=== PATIENT | female | born 1970 | race Caucasian/White ===

== ENCOUNTER 2020-02-19 09:24 | Outpatient (REF) | payer OTHER, SELFPAY ==
--- NOTE | 2020-02-19 09:49 | MR_ITS ---
EXAMINATION: MR ABDOMEN WITHOUT AND WITH CONTRAST MR PELVIS WITHOUT AND WITH CONTRAST CLINICAL INFORMATION: Crohn's disease of colon without complication. No prior surgery. COMPARISON: None. TECHNIQUE: MR abdomen and MR pelvis are performed without and with use of 8 mL intravenous Gadavist gadolinium contrast. Imaging is performed in 3 planes. Patient had 1.5 L of oral Breeza prior to imaging. FINDINGS: LUNG BASES: The visualized lung bases are unremarkable. LIVER, GALLBLADDER, AND BILIARY TREE: The liver is normal in size and smooth in contour and normal in signal. There is no significant signal loss on out of phase imaging. No enhancing parenchymal lesion. No intrahepatic ductal dilatation. The gallbladder is unremarkable with no evidence of gallbladder wall thickening, or obvious pericholecystic inflammatory changes. PANCREAS: The pancreas is normal in size and contour and signal. There is no pancreatic ductal distention. No divisum. No peripancreatic inflammatory changes. SPLEEN: Normal. ADRENAL GLANDS: Normal. KIDNEYS AND URETERS: The kidneys are normal in size, shape, and enhance symmetrically. No hydronephrosis. No perinephric stranding. Incidental 1 cm cyst lateral right kidney between upper and midpole. GASTROINTESTINAL TRACT: No bowel obstruction or focal inflammatory changes in the bowel or mesentery. The terminal ileum unremarkable. The appendix is normal. There is no focal bowel wall thickening, T2 signal, or abnormal enhancement. No ascites or fluid collection. ABDOMINAL WALL: Small fat-containing supraumbilical hernia measuring 1.8 x 2.9 cm. LYMPH NODES: No lymphadenopathy. VASCULAR: Unremarkable. PELVIS: Uterus normal in size and smooth in contour, slightly tilted towards the left. There is incidental dominant follicle left ovary under 2 cm. No pelvic ascites. OSSEOUS STRUCTURES: Unremarkable. No sacroiliitis. IMPRESSION: 1. No focal inflammatory changes in bowel or mesentery. 2. Gallbladder and bile ducts normal. 3. Incidental right renal cyst 1 cm. Incidental dominant follicle left ovary under 2 cm. 4. Small fat-containing supraumbilical hernia 1.8 x 2.9 cm.
== END 2020-02-19 09:25 | disposition home or self-care (01) ==
LOC: HO.MRI 09:24
PROVIDERS: Visit Provider Internal Medicine Gastroenterology
DX: K50.10 Crohn's disease of large intestine without complications (principal)
CPT/HCPCS: 72197; 74183

== ENCOUNTER 2020-03-14 14:46 | Outpatient (REF) | payer OTHER, SELFPAY ==
[2020-03-14 15:37] LABS: MANUAL DIFF FLAG NO
[2020-03-14 15:43] LABS: Basophils Absolute Auto 0.1 X10*3/uL (0.0-0.2); Basophils Percent Auto 1.3 % (0-2); Eosinophils Absolute Auto 0.4 X10*3/uL (0.0-0.4); Eosinophils Percent Auto 5.1 % (0-4); Hematocrit 41.2 % (37-47); Hemoglobin 14.1 g/dl (12.0-16.0); Imm Gran Abs Auto 0.02 X10*3/uL (0.00-0.03); Imm Gran Pct Auto 0.3 % (0.0-0.4); Lymphocytes Absolute Auto 2.6 X10*3/uL (1.2-4.9); Lymphocytes Percent Auto 32.7 % (20-40); Mean Corpuscular HGB Conc 34.2 g/dl (31.0-35.0); Mean Corpuscular Volume 87.7 fL (80-98); Mean Platelet Volume 10.7 fL (9.4-12.3); Monocytes Absolute Auto 0.4 X10*3/uL (0.1-1.2); Monocytes Percent Auto 4.9 % (2-11); Neutrophils Absolute Auto 4.4 X10*3/uL (2.0-8.3); Neutrophils Percent Auto 55.7 % (45-73); Platelet Count 278 X10*3/uL (160-400); Red Cell Distribution Width 12.3 % (11.0-16.0); White Blood Count 7.8 X10*3/uL (4.8-10.8)
[2020-03-14 16:07] LABS: Alanine Aminotransferase 16 U/L (0-31); Albumin Level 4.1 g/dL (3.5-5.0); Alkaline Phosphatase 51 U/L (39-117); Anion Gap 12 (12-20); Aspartate Amino Transferase 16 U/L (5-31); Bilirubin Total 0.4 mg/dL (0.0-1.0); Blood Urea Nitrogen 12 mg/dL (9-16); C Reactive Protein 0.15 mg/dL (< or = 0.50); Carbon Dioxide 28 mmol/L (22-29); Chloride 106 mmol/L (96-108); Estimated Glomerular Filt Rate > 60; Glucose Random 88 mg/dL (60-115); Sodium 142 mmol/L (135-145); Total Protein 6.5 g/dL (6.5-8.0)
[2020-03-14 16:40] LABS: Folate 7.9 ng/mL (> or = 4.0); Vitamin B12 407 pg/mL (200-900)
[2020-03-14 16:50] LABS: Erythrocyte Sedimentation Rate 7 MM/HR (0-20)
[2020-03-15 10:37] LABS: CDIFF Ag Negative (Negative); CDiff Toxin Negative (Negative)
[2020-03-15 10:38] LABS: CDIFF Internal ctrl Dots and bkg OK (V)
[2020-03-15 13:32] LABS: Immunoglobulin G Subclass 1 319 mg/dL (382-929); Immunoglobulin G Subclass 2 379 mg/dL (241-700); Immunoglobulin G Subclass 3 73 mg/dL (22-178); Immunoglobulin G Subclass 4 3.4 mg/dL (4-86); Immunoglobulin G Total 799 mg/dL (600-1640)
[2020-03-17 08:38] LABS: HBS Num1 0.68 mIU/mL (0-7.99); HBc Num1 0.05 S/CO (0.00-0.79); HBsAGNum1 0.26 S/CO (0.00-0.99); Hepatitis B Core Antibody Nonreactive (Nonreactive); Hepatitis B Surface Antigen Negative (Negative); ~HepC Num1 0.11 S/CO (0.00-0.79); ~Hepatitis B Surface Antibody NONREACTIVE (Nonreactive); ~Hepatitis C Antibody Nonreactive (Nonreactive)
[2020-03-17 19:09] LABS: EBV-VCA IgG Ab >750.00 U/mL; EBV-VCA IgM Ab <36.00 U/mL
[2020-03-17 19:11] LABS: TS Negative Control Passed; TS Panel A 0; TS Panel B 0; TS Positive Control Passed; TSpotTB Negative (SeeBelow)
[2020-03-19 09:53] LABS: Hepatitis A Antibody IgM 0.12 Index (0-0.79); ~Hepatitis A Antibody IgM Nonreactive (Nonreactive)
[2020-03-19 21:46] LABS: Vitamin C 0.7 mg/dL (0.3-2.7)
[2020-03-21 13:27] LABS: Calprotectin, Fecal 23 mcg/g
== END 2020-03-14 14:47 | disposition home or self-care (01) ==
LOC: HO.LAB 14:46
PROVIDERS: PCP Internal Medicine; Visit Provider Internal Medicine Gastroenterology
DX: K50.10 Crohn's disease of large intestine without complications (principal)
CPT/HCPCS: 36415; 80053; 82180; 82607; 82746; 82784; 83993; 85025; 85652; 86140; 86481; 86664; 86665; 86704; 86706; 86709; 86787; 86803; 87324; 87340; 87449

== ENCOUNTER → 2020-04-01 11:05 | Outpatient (BNVA) | payer OTHER, SELFPAY | PROVIDERS: PCP Internal Medicine; Visit Provider Surgery | DX: K42.9 Umbilical hernia without obstruction or gangrene (principal) | CPT/HCPCS: 99202 ==

== ENCOUNTER 2020-04-07 06:55 | Day surgery (SDC) | payer OTHER, SELFPAY ==
--- NOTE | 2020-04-04 11:04 | HO.ANESPROP2 ---
HPI - Anesthesia Eval Consult details Narrative: 49yo F for Hernia Repair Ventral with mesh PMFSH Past Medical History Medical History Colitis, ulcerative Crohn's colitis Osteoarthritis Surgical History Surgical History (Updated 04/07/20 @ 19:05 by Sudha Amaya MD) History of tubal ligation Hx of ventral hernia repair Social History Social History Alcohol intake: never Smoking Status: Never smoker Meds Allergies Allergy/AdvReac Type Severity Reaction Status Date / Time acetaminophen [Percocet] AdvReac Unknown nausea and Verified 10/19/19 00:00 vomiting oxycodone [Percocet] AdvReac Unknown nausea and Verified 10/19/19 00:00 vomiting Home Medications Medication Instructions Recorded Confirmed Type No Known Home Meds 04/01/20 04/01/20 History Exam Exam Date and Time: April 04, 2020 1104 Pertinent Lab Results Pertinent Lab Results: Laboratory Tests 03/14/20 03/14/20 14:36 14:36 WBC 7.8 Hgb 14.1 Hct 41.2 Plt Count 278 Sodium 142 Potassium 4.0 Chloride 106 Carbon Dioxide 28 BUN 12 Creatinine 0.82 Assessment and Plan Assessment Anesthesia Assessment: Chart Reviewed
[2020-04-04 13:36] VITALS: BMI 35.6
[2020-04-07] VITALS (7 sets, daily range): BP systolic 108–134; BP diastolic 65–83; PULSE 63–76; RESP 16–20; TEMP 36.3–36.7; O2SAT 94–97
[2020-04-07] MEDS: Lactated Ringers 1,000 ML 100 ML IVCONT (07:34)
[2020-04-07] MEDS: ceFAZolin Sodium/Dextrose,Iso 2 GM/50 ML PIGGYBACK IV (07:35)
--- NOTE | 2020-04-07 07:38 | PC.NURSE ---
lungs clear throughtou
--- NOTE | 2020-04-07 08:51 | HO.ANESPROP2 ---
[facility] Past Medical History Medical History Colitis, ulcerative Crohn's colitis Osteoarthritis Surgical History Surgical History History of tubal ligation Social History Social History Alcohol intake: never Smoking Status: Never smoker Use of substances other than those prescribed or required for medical reasons: No Advance Directives: No Advance Directives Information Provided: Yes Advance Directives on File: No Meds Allergies Allergy/AdvReac Type Severity Reaction Status Date / Time acetaminophen [Percocet] AdvReac Unknown nausea and Verified 10/19/19 00:00 vomiting oxycodone [Percocet] AdvReac Unknown nausea and Verified 10/19/19 00:00 vomiting Home Medications Medication Instructions Recorded Confirmed Type No Known Home Meds 04/01/20 04/01/20 History Exam Exam Date and Time: April 07, 2020 0851 Height,Weight and Vital Signs: Height 5 ft 1 in Weight 85.729 kg Last Vital Signs Temp 98.1 F 04/07/20 07:28 Pulse 66 04/07/20 07:28 Resp 16 04/07/20 07:28 BP 134/83 04/07/20 07:28 Pulse Ox 97 04/07/20 07:28 Airway Mallampati Class: II TM Dist: >3cm Neck ROM: Full Loose/Missing/Broken Teeth: No Heart: RRR Lungs: CTA Assessment and Plan Assessment Anesthesia Assessment: Anesthesia Plan Discussed and Chart Reviewed Final Anesthetic Review NPO: Yes ASA Class: II Final Preanesthetic Review: Meds/Allgs Chart Reviewed, Consent Obtained/Reviewed and Anes Risks/Benef Reviewed Patient Risk: Low Procedure Risk: Low Anesthetic Plan Anesthetic Plan: GA Disposition: Standard PACU
--- NOTE | 2020-04-07 09:00 | MHC.SHP ---
Pre-Procedural Eval Section A The patient is an INPATIENT: Yes Changes since office visit: No Cold of Flu in the past 2 weeks, No New Medical Problems and No Changes in Medication The History & Physical has been completed within 30 days and I have reviewed it.: Yes Section B Chief Complaint: umbilical hernia without obstruction or gangrene Allergies: Allergies Allergy/AdvReac Type Severity Reaction Status Date / Time acetaminophen [Percocet] AdvReac Unknown nausea and Verified 10/19/19 00:00 vomiting oxycodone [Percocet] AdvReac Unknown nausea and Verified 10/19/19 00:00 vomiting Plan Diagnosis/Plan: Unchanged Patient has been examined and remains a candidate for the planned procedure
--- NOTE | 2020-04-07 09:53 | P.BOP_ITS ---
Brief Operative Note Date of Service: 04/07/20 Pre-op diagnosis: Ventral hernia Post-op diagnosis: same Procedure: Repair of ventral hernia with mesh Implants: Ventralex 4.3 cm round mesh Surgeon: Mario Ye MD Anesthesia: GLMA Sample Body Builder: Rach Garner Estimated blood loss (mL): 2 Pathology: other (omentum) Condition: stable Disposition: PACU
--- NOTE | 2020-04-07 10:22 | W.PM.OPN ---
Operative Note Operative Note Date of Service: 04/07/20 Narrative: Preoperative diagnosis: Ventral hernia Postoperative diagnosis: Same Procedure: Repair of ventral hernia with mesh. Surgeon: Mario Ye MD Labor Crew Supervisor: DENISE Fishman Anesthesia: General LMA Indications for procedure: 49-year-old female patient presenting with a palpable lump above the umbilicus which increases in size with lifting and straining and is causing some discomfort. Operative findings: Patient was found to have a small incarcerated ventral hernia with a defect measuring approximately 1 cm with omental fat within the hernia sac. Specimen: Omental fat Estimated blood loss: 2 mL Complications: None Procedure details: Patient was brought to the OR and placed in a supine position. After administering general anesthesia the patient's abdomen was prepped with ChloraPrep and draped in a sterile fashion. A surgical time-out was called the consent confirmed. Patient received preoperative antibiotics and Venodyne boots were in place. Local anesthesia consisting of 0.75% Sensorcaine was infiltrated in the midline just above the umbilicus. An incision was made in the midline and carried out through subcutaneous tissue down to the hernia sac. The hernia sac was dissected free from the surrounding subcutaneous tissue down to the fascia. Fascial edges were further defined. The fascial edges were opened slightly both superiorly and inferiorly. The sac was then opened in the incarcerated omental fat dissected free. This was then resected using electrocautery. The hernia sac was then reduced into the abdominal cavity. A 4.3 cm round Ventralex mesh was then obtained. This was placed in the preperitoneal space and secured to fascia using [id number] 1. Tycron sutures. The fascia was then closed over the mesh. Wounds were then irrigated with saline solution and suctioned dry. Subcutaneous tissue and dermis were reapproximated using interrupted 3-0 Polysorb sutures. Skin was then closed using a running subcuticular 4-0 Polysorb suture. Steri-Strips 2 x 2 gauze and Tegaderm were then applied. The patient tolerated procedure well. Sponge, instrument, and needle counts reported as correct. The patient was transferred to PACU in stable condition.
--- NOTE | 2020-04-07 12:31 | HO.POSTANES ---
Post Anesthesia Evaluation Post Anesthesia Evaluation Vital Signs: Vital Signs Temp Pulse Resp BP Pulse Ox 04/07/20 10:50 97.8 F 04/07/20 10:32 63 20 108/68 94 04/07/20 10:17 68 18 122/65 97 04/07/20 10:13 69 18 116/73 97 04/07/20 10:08 66 18 124/79 97 04/07/20 10:03 97.3 F 76 18 126/77 97 04/07/20 07:28 98.1 F 66 16 134/83 97 Anesthesia: General Mental Status: Awake Pain Control: Satisfactory Nausea/Vomiting: None Hydration: Adequate Anesthesia-Related Issues: No Anes. Related Issues
== END 2020-04-07 11:13 ==
PROVIDERS: PCP Internal Medicine; Visit Provider Surgery
PROC: (CPT 49560; principal; 2020-04-07 08:30)
DX: K42.9 Umbilical hernia without obstruction or gangrene (principal)
CPT/HCPCS: 49560; 49568; 88304; C1781; J0690; J1100; J1885; J2250; J2405; J3010

== ENCOUNTER → 2020-04-16 10:15 | Outpatient (BNVA) | payer OTHER, SELFPAY | PROVIDERS: PCP Internal Medicine; Visit Provider Surgery | DX: Z48.815 Encounter for surgical aftercare following surgery on the digestive system (principal); Z87.19 Personal history of other diseases of the digestive system | CPT/HCPCS: 99212 ==

== ENCOUNTER → 2020-04-22 10:57 | Outpatient (BNVA) | payer OTHER, SELFPAY | PROVIDERS: PCP Internal Medicine; Visit Provider Internal Medicine Gastroenterology | DX: Z76.89 Persons encountering health services in other specified circumstances (principal) ==

== ENCOUNTER → 2020-06-05 09:45 | Outpatient (BNVA) | payer OTHER, SELFPAY | PROVIDERS: PCP Internal Medicine; Visit Provider Surgery | DX: Z09 Encounter for follow-up examination after completed treatment for conditions other than malignant neoplasm (principal); Z87.19 Personal history of other diseases of the digestive system | CPT/HCPCS: 99212 ==

== ENCOUNTER → 2020-10-17 10:00 | Outpatient (BNVA) | payer OTHER, SELFPAY | PROVIDERS: PCP Internal Medicine; Visit Provider Internal Medicine Gastroenterology ==

== ENCOUNTER 2022-11-22 08:16 | Outpatient (AMB) | payer SELFPAY ==
--- NOTE | 2022-11-22 08:20 | AM.OFFWIN_ITS ---
Intake Vital Signs 11/22/22 08:21 Height 5 ft 1 in BP 140/88 H Blood Pressure Location Rt brachial Position Standing Pulse 77 Pulse Source Pulse Oximeter Temp 97.7 F Temp Source Oral Pulse Oximetry (%) 95 Oxygen Delivery Method Room Air Intake Visit Reasons: EP RT knee pain (lobby) Intake Note: Pt states Rt knee started hurting a few wks ago and she heard a pop. Patient Tobacco Use Status: Never used Tobacco Allergies acetaminophen [Percocet] Adverse Reaction (Unknown, Verified 11/22/22 08:23) nausea and vomiting oxycodone [Percocet] Adverse Reaction (Unknown, Verified 11/22/22 08:23) nausea and vomiting HPI EP RT knee pain (lobby) HPI Details 51-year-old female presents to the office for a sick visit. Patient is having significant pain in the right knee. Symptoms started 3 weeks ago. She has osteoarthritis in the left knee and right ankle. Does not recall any specific injury or fall. Patient has to climb stairs 1 step at a time. [facility] Medical History Colitis, ulcerative Crohn's colitis Osteoarthritis Surgical History History of colonoscopy History of tubal ligation Hx of ventral hernia repair Family History Father Hx of Parkinson's disease Family history of high blood pressure Mother Hx of chronic arthritis Hx of kidney disease Social History Alcohol intake: never Patient Tobacco Use Status: Never used Tobacco Physical Exam Vital Signs: Last Vital Signs Temp 97.7 F 11/22/22 08:21 Pulse 77 11/22/22 08:21 BP 140/88 H 11/22/22 08:21 Pulse Ox 95 11/22/22 08:21 Oxygen Delivery Method Room Air 11/22/22 08:21 Const Other: Patient walking in on her own but with great difficulty. Unable to bear weight on the right knee. Extrem Other: Right knee: Joint line tenderness. Pain on flexion. Minimal effusion in the suprapatellar area. Assessment & Plan Assessment & Plan (1) Sprain of right knee: Code(s): S83.91XA - Sprain of unspecified site of right knee, initial encounter Plan: X-ray of the knee was personally reviewed by me. Knee brace provided. Patient was advised to keep off the right knee and avoid weight-bearing on the right leg. She has cannot tolerate anti-inflammatories due to fear of triggering colitis. Voltaren patch prescribed. Coding Level of Care Code Est Pt Level 4 (27224) Diagnoses Sprain of right knee S83.91XA
[2022-11-22 08:21] VITALS: BP 140/88; PULSE 77; TEMP 36.5; O2SAT 95
== END 2022-11-22 09:11 | disposition home or self-care (01) ==
PROVIDERS: PCP Internal Medicine; Visit Provider Internal Medicine
DX: S83.91XA Sprain of unspecified site of right knee, initial encounter (principal)
CPT/HCPCS: 99214

== ENCOUNTER 2022-11-22 08:50 | Outpatient (REF) | payer SELFPAY ==
--- NOTE | ~2022-11-22 | XR_ITS ---
EXAMINATION: XR KNEE, RIGHT CLINICAL INFORMATION: Brain COMPARISON: Right knee radiograph from 11/04/2005 (report only) TECHNIQUE: Four views of the right knee. FINDINGS: No acute visible fracture or dislocation. Mild narrowing of the medial femorotibial compartment. Joint spaces and alignment are otherwise maintained. Trace knee joint effusion. Soft tissues are unremarkable. XR/XR knee RT 4V IMPRESSION: 1. No acute visible fracture or dislocation. 2. Mild narrowing of the medial femorotibial compartment. 3. Trace knee joint effusion.
== END 2022-11-22 08:51 | disposition home or self-care (01) ==
LOC: HO.HMGCX 08:50
PROVIDERS: PCP Internal Medicine; Visit Provider Internal Medicine
DX: S83.91XA Sprain of unspecified site of right knee, initial encounter (principal)
CPT/HCPCS: 73564

== ENCOUNTER 2023-10-23 13:42 | Emergency (ER) | payer OTHER, SELFPAY ==
--- NOTE | ~2023-10-23 | CT_ITS ---
EXAMINATION: CT gi bleed abd pel wo/w IVcon CLINICAL INFORMATION: multiple episodes of rectal bleeding, pain COMPARISON: MRA abdomen 02/19/2020. TECHNIQUE: Multidetector volumetric precontrast imaging was performed through the abdomen and pelvis, as well as arterial and venous phase imaging following the administration of 80 mL of Omnipaque 350 intravenous contrast. Sagittal and coronal reformatted images were obtained on the technologist's workstation. Axial MIP volume rendering provided. This CT examination was performed using dose optimization techniques as appropriate, variously including the following: * Automated exposure control * Adjustment of mA and/or kV according to patient size (this includes techniques or standardized protocols for targeted exams where dose is matched to indication/reason for exam; i.e. extremities or head) Use of iterative reconstruction technique DLP: 1793 mGy-cm FINDINGS: VISUALIZED CHEST: Lung bases are clear. Visualized mediastinum is normal. LIVER, GALLBLADDER, BILIARY TREE: Liver is diffusely hypoattenuating relative to spleen. The liver is normal in size and shape. No focal hepatic lesion or biliary ductal dilatation is present. The gallbladder is unremarkable with no evidence of radiopaque gallstones, gallbladder wall thickening, or obvious pericholecystic inflammatory changes. PANCREAS: Normal; no mass or surrounding fluid. SPLEEN: Normal size. No focal lesion. ADRENAL GLANDS: Normal; no mass. KIDNEYS AND URETERS: Bilateral simple renal cysts for which no follow-up imaging is recommended. The kidneys are normal in size, shape, and attenuation. No hydronephrosis, hydroureter, or calculi seen. No perinephric stranding. BLADDER: No focal mass or wall thickening seen. No bladder calculi. PELVIC VISCERA: Normal CT appearance the uterus. No adnexal masses. GASTROINTESTINAL TRACT: The small and large bowel are nondilated. No evidence for contrast extravasation to suggest active bleeding. Mild sigmoid diverticulosis evidence of acute decubitus. Normal appendix. PERITONEAL SPACE: No significant free air or free fluid identified. ABDOMINAL WALL: No bowel containing hernia is appreciated. LYMPHOVASCULAR STRUCTURES: Lymph nodes: Normal. Vascular: The aorta is normal in caliber. OSSEOUS STRUCTURES: No acute or suspicious osseous abnormality. Grade 1 anterolisthesis of L4 on L5. CT/CT gi bleed abd pel wo/w IVcon IMPRESSION: 1. No evidence of contrast extravasation to suggest active gastrointestinal bleeding. 2. Mild sigmoid diverticulosis without evidence of acute diverticulitis. 3. Hepatic steatosis.
[2023-10-23 14:02] VITALS: BP 144/78; PULSE 112; RESP 16; TEMP 37.1; O2SAT 96; BMI 38.7
--- NOTE | 2023-10-23 14:11 | ED_ITS ---
HPI - Female Genitourinary General Chief complaint: GI Bleed Stated complaint: Rectal bleeding Time Seen by Provider: 10/23/23 14:38 Source: patient and family (patient's ) Mode of arrival: ambulatory Limitations: no limitations History of Present Illness ED Provider: Indiana Velez PA-C HPI Narrative: Patient is a 52 year old assigned female at with a history of ulcerative colitis and Crohn's disease presenting to the emergency department today with blood in her stools. Patient states that over the last few hours she has had multiple episodes of bloody stools. Patient states that she noticed bright red blood but is having no pain. Patient denies any dizziness, lightheadedness, abdominal pain, nausea, vomiting, fever, chills, blurry vision, double vision, loss of vision, chest pain, difficulty breathing, shortness of breath, back pain, night sweats, pain with urination, increased urinary frequency, increased urinary urgency, blood in her urine, syncope or a near syncopal episode, recent trauma or falls, bowel incontinence, bladder incontinence, or any other complaints at this time. Exacerbating factors: none Relieving factors: none Associated symptoms: denies other symptoms Treatment prior to arrival: none Related Data Home Medications ?Medication ?Instructions ?Recorded ?Confirmed No Known Home Meds 04/01/20 06/05/20 Allergies Allergy/AdvReac Type Severity Reaction Status Date / Time acetaminophen [Percocet] AdvReac Unknown nausea and Verified 10/23/23 14:08 vomiting oxycodone [Percocet] AdvReac Unknown nausea and Verified 10/23/23 14:08 vomiting Review of Systems 2 Constitutional: Constitutional: Reports no additional constitutional complaints, Denies chills, Denies fever(s) and Denies night sweats Eyes: Eyes: Reports no additional eye complaints, Denies blurry vision, Denies change in vision, Denies diplopia, Denies eye discharge, Denies loss of vision and Denies eye pain ENT: Denies dizziness Cardiovascular: Cardiovascular: Reports no additional cardiovascular complaints, Denies chest pain, Denies lightheadedness, Denies Loss of Consciousness and Denies dyspnea Respiratory: Respiratory: Reports no additional respiratory complaints and Denies dyspnea Gastrointestinal: Gastrointestinal: Reports no additional gastrointestinal complaints, Denies abdominal pain, Denies melena, Reports hematochezia, Denies change in bowel habits and Reports change in stool character Genitourinary: Genitourinary: Denies hematuria, Denies urinary frequency, Denies dysuria, Denies urinary incontinence, Denies urinary hesitancy and Denies urinary urgency Musculoskeletal: Musculoskeletal: Reports no additional musculoskeletal complaints, Denies numbness and Denies tingling Neurologic: Denies dizziness, Denies loss of vision, Denies numbness and Denies tingling Psychiatric: Psychiatric: Reports no additional psychiatric complaints Endocrine: Endocrine: Reports no additional endocrine complaints Hematologic/Lymphatic: Hematologic/Lymphatic: Reports no additional hematologic/lymphatic complaints Allergic/Immunologic: Allergic/Immunologic: Reports no additional allergic/immunologic complaints PMFSH Past Medical History Attestation statement: The following information was validated with the patient. (all information validated with the patient's ) Source: old records reviewed, obtained from family (patient's provided additional history and confirmed the history provided by the patient.) and nursing notes reviewed Medical History Crohn's colitis Colitis, ulcerative Osteoarthritis Surgical History History of colonoscopy Hx of ventral hernia repair History of tubal ligation Family History Family History Father Hx of Parkinson's disease Family history of high blood pressure Mother Hx of chronic arthritis Hx of kidney disease Social History Social History Alcohol intake: never Patient Tobacco Use Status: Never used Tobacco Smoked in Last 30 Days: No Use of substances other than those prescribed or required for medical reasons: No Advance Directives: No Advance Directives Information Provided: Yes Do you have a plan to hurt others: No Plan Patient : No Physical Exam 2 Vital Signs: Vital Signs: Last Vital Signs Temp 98.5 F 10/23/23 18:03 Pulse 85 10/23/23 18:03 Resp 14 10/23/23 18:03 BP 120/74 10/23/23 18:03 Pulse Ox 99 10/23/23 18:03 O2 Del Method Room Air 10/23/23 18:03 BMI result Body Mass Index 38.7 Const: General: cooperative, no acute distress, alert and awake Nutritional Appearance: well nourished Orientation/consciousness: patient oriented x3 Limitations: no limitations HEENT: Head: Yes normal to inspection and Yes atraumatic Ears: hearing grossly normal bilaterally and external ears normal General nose exam: Normal external nose present, no nasal discharge noted and no epistaxis Face and sinus: Yes normal facial exam, No abrasion and No laceration Mouth: Normal oral and palatal mucosa present, no drooling and no muffled voice Eyes: General: appearance normal, both eyes and all related structures P eriorbital: periorbital findings normal Eyelids: Yes eyelids normal C onjunctivae: conjunctivae normal Pupils: Equal, round and reactive pupils present EOM: EOMs intact bilaterally Neck: Neck: Yes normal visual inspection, Yes full ROM and Yes no lymphadenopathy Chest: Chest palpation & inspection: normal inspection of the chest Resp: Effort & Inspection: normal respiratory effort and able to speak in complete sentences GI: Inspection: Yes normal to inspection Palpation (GI): Soft to palpation, not firm, nontender, no guarding and not rigid Neuro: General: patient oriented x3 and moves all extremities Cranial nerves: Yes Equal, round and reactive pupils present Cognition (Neuro): n ormal cognition Motor exam (neuro): 5/5 motor strength present throughout Sensory Exam: Normal double simultaneous stimulation for sensation C oordination: [id number] test normal Extrem: General: Yes normal to inspection, Yes full ROM and Yes capillary refill normal Psych: Appearance: grossly normal Mental Status: mental status grossly normal Affect: normal affect Attitude: cooperative Thought process: N ormal thought process present Thought content: Normal thought content present Insight: Good insight present (Psych) Course Course Course Narrative: RME: Done by COOPER Flores: 52-year-old female history of Crohn's, ulcerative colitis, and diverticulitis presents to ED for multiple episodes of painless rectal bleeding. Patient denies any weight loss or abdominal pain. Patient states history of hemorrhoids but no rectal pain. Patient appears pale and is dizzy. Labs ordered. Patient brought to ED. Medications Administered Discontinued Medications Generic Name Dose Route Start Last Admin Trade Name Freq PRN Reason Stop Dose Admin Iohexol 80 ml 10/23/23 15:58 10/23/23 15:59 Iohexol 350 Mg/Ml 100 Ml Infus..Btl IV 10/23/23 15:59 80 ml ONCE ONE Administration Medical Decision Making Medical Decision Making MDM Narrative: Patient is a 52 year old assigned female at with a history of Crohn's disease and ulcerative colitis presenting to the emergency department today with painless rectal bleeding. Patient's physical exam was unremarkable. Patient's blood work was unremarkable. Patient's urine showed no acute process. Patient's abdomen/pelvis CT showed diverticulosis but was otherwise unremarkable. I stressed the importance of the patient taking her medication as prescribed. I stressed the importance of the patient following up with her primary care provider and a GI specialist. I stressed the importance of the patient returning to the emergency department immediately if her symptoms were to worsen or if she were to develop any dizziness, shortness of breath, difficulty breathing, chest pain, blurry vision, loss of vision, nausea, vomiting, abdominal pain, fever, chills, back pain, or any other complaints. Patient verbalized agreement and understanding with this treatment plan and discharge. Differential Diagnosis Differential Diagnoses: The differential diagnosis associated with the presentation includes Rectal bleeding Hemorrhoids Diverticulosis Admission/Observation Consideration of admission/observation: Escalation of care including admission/observation considered Patient would have been admitted to the hospital had her work up had any findings where hospital admission was appropriate and her clinical presentation warranted hospital admission. Lab Data [facility] Lab Attestation statement: I reviewed the patient's lab results. My interpretation of these results are in the MDM Rationale portion of this note. 10/23/23 14:16 10/23/23 14:16 Labs: Lab Results 10/23/23 10/23/23 Range/Units 14:16 16:31 WBC 8.2 (4.8-10.8) X10*3/uL RBC 4.69 (4.20-5.50) X10*6/uL Hgb 13.7 (12.0-16.0) g/dl Hct 39.5 (37.0-47.0) % MCV 84.2 (80.0-98.0) fL MCH 29.2 (27.0-33.0) pg MCHC 34.7 (31.0-35.0) g/dl RDW 12.9 (11.0-16.0) % Plt Count 271 (160-400) X10*3/uL MPV 9.9 (9.4-12.3) fL Immature Gran % (Auto) 0.4 (0.0-0.4) % Neut % (Auto) 60.2 (45-73) % Lymph % (Auto) 29.8 (20-40) % [place] % (Auto) 5.1 (2-11) % Eos % (Auto) 3.9 (0-4) % Baso % (Auto) 0.6 (0-2) % Lymph # (Auto) 2.4 (1.2-4.9) X10*3/uL [place] # (Auto) 0.4 (0.1-1.2) X10*3/uL Eos # (Auto) 0.3 (0.0-0.4) X10*3/uL Baso # (Auto) 0.1 (0.0-0.2) X10*3/uL Abs Immat Gran (auto) 0.03 (0.00-0.03) X10*3/uL Absolute Neuts (auto) 4.9 (2.0-8.3) x10*3/uL Absolute Nucleated RBC 0.000 (0.0-0.012) X10*3/uL Nucleated RBC % (auto) 0.0 (0.0-0.2) /100WBC PT 11.6 (11.1-13.3) SEC INR 1.0 (0.9-1.1) APTT 25.6 L (26.0-36.8) SEC Sodium 143 (135-145) mmol/L Potassium 4.0 (3.3-5.1) mmol/L Chloride 108 (96-108) mmol/L Carbon Dioxide 25 (22-29) mmol/L Anion Gap 14 (12-20) BUN 11 (9-16) mg/dL Creatinine 0.82 (0.5-1.4) mg/dL Estim Creat Clear Calc 81.5 Estimated GFR > 60 Random Glucose 132 H (60-115) mg/dL Calcium 9.1 (8.4-10.2) mg/dL Total Bilirubin 0.3 (0.0-1.0) mg/dL AST 26 (5-31) U/L ALT 34 H (0-31) U/L Alkaline Phosphatase 55 (39-117) U/L Total Protein 6.6 (6.5-8.0) g/dL Albumin 4.0 (3.5-5.0) g/dL Urine Color Yellow Urine Appearance Clear Urine pH 6.0 (5.0-9.0) Ur Specific [place] >= 1.030 H (1.005-1.025) Urine Protein Negative (Neg-Trace) mg/dL Urine Glucose (UA) Negative (Negative) mg/dL Urine Ketones Negative (Negative) mg/dL Urine Blood Negative (Negative) Urine Nitrite Negative (Negative) Ur Leukocyte Esterase Negative (Negative) Urine RBC 0-2 (0-2) /HPF Urine WBC 0-5 (0-5) /HPF Ur Squamous Epith Cells 0-2 (0-2) /HPF Urine Bacteria None Seen (None Seen) Hyaline Casts 0-2 (0-2) /LPF Independent Interpretation I performed an independent interpretation of an: CT Scan Interpretation: My interpretation is in agreement with the radiologist's impression of this imaging study. - EXAMINATION: CT gi bleed abd pel wo/w IVcon CLINICAL INFORMATION: multiple episodes of rectal bleeding, pain COMPARISON: MRA abdomen 02/19/2020. TECHNIQUE: Multidetector volumetric precontrast imaging was performed through the abdomen and pelvis, as well as arterial and venous phase imaging following the administration of 80 mL of Omnipaque 350 intravenous contrast. Sagittal and coronal reformatted images were obtained on the technologist's workstation. Axial MIP volume rendering provided. This CT examination was performed using dose optimization techniques as appropriate, variously including the following: * Automated exposure control * Adjustment of mA and/or kV according to patient size (this includes techniques or standardized protocols for targeted exams where dose is matched to indication/reason for exam; i.e. extremities or head) Use of iterative reconstruction technique DLP: 1793 mGy-cm FINDINGS: VISUALIZED CHEST: Lung bases are clear. Visualized mediastinum is normal. LIVER, GALLBLADDER, BILIARY TREE: Liver is diffusely hypoattenuating relative to spleen. The liver is normal in size and shape. No focal hepatic lesion or biliary ductal dilatation is present. The gallbladder is unremarkable with no evidence of radiopaque gallstones, gallbladder wall thickening, or obvious pericholecystic inflammatory changes. PANCREAS: Normal; no mass or surrounding fluid. SPLEEN: Normal size. No focal lesion. ADRENAL GLANDS: Normal; no mass. KIDNEYS AND URETERS: Bilateral simple renal cysts for which no follow-up imaging is recommended. The kidneys are normal in size, shape, and attenuation. No hydronephrosis, hydroureter, or calculi seen. No perinephric stranding. BLADDER: No focal mass or wall thickening seen. No bladder calculi. PELVIC VISCERA: Normal CT appearance the uterus. No adnexal masses. GASTROINTESTINAL TRACT: The small and large bowel are nondilated. No evidence for contrast extravasation to suggest active bleeding. Mild sigmoid diverticulosis evidence of acute decubitus. Normal appendix. PERITONEAL SPACE: No significant free air or free fluid identified. ABDOMINAL WALL: No bowel containing hernia is appreciated. LYMPHOVASCULAR STRUCTURES: Lymph nodes: Normal. Vascular: The aorta is normal in caliber. OSSEOUS STRUCTURES: No acute or suspicious osseous abnormality. Grade 1 anterolisthesis of L4 on L5. CT/CT gi bleed abd pel wo/w IVcon IMPRESSION: 1. No evidence of contrast extravasation to suggest active gastrointestinal bleeding. 2. Mild sigmoid diverticulosis without evidence of acute diverticulitis. 3. Hepatic steatosis. Dictated By: Noreen Souza Signed By: Electronically signed by Noreen Souza 10/23/23 0801 Radiology Impression Discussion of test interpretation with radiology: I have reviewed the radiologist's reading. Independent Historian Clinical information obtained from an independent historian. History obtained from or confirmed by: Spouse (patient's provided additional history and confirmed the history provided by the patient) Discharge Plan Discharge Clinical Impression: Diverticulosis, Painless rectal bleeding Patient Disposition: Home, Self-Care Instructions: Rectal Bleeding (ED), Diverticulosis (ED) Additional Instructions: Follow up with your primary care provider and a GI specialist. Follow up with the financial office about getting back on [employer]. Return to the emergency department immediately if your symptoms worsen or if you develop any dizziness, shortness of breath, difficulty breathing, chest pain, blurry vision, loss of vision, nausea, vomiting, abdominal pain, fever, chills, back pain, or any other complaints. Prescriptions: No Action No Known Home Meds Referrals: [facility] [place] [facility] [Provider Group] (Call to establish and follow up with a GI specialist.) [facility] [place] Family Medicine [Provider Group] (Call to establish and follow up with a primary care provider. If you already have a primary care provider, please follow up with them.) [facility] [place] [facility] [Provider Group] [facility] [place] [facility] [Provider Group] Interventions: ED Discharge Assessment Last Done: 10/23/23 18:03 Discharge Date/Time: 10/23/23 18:03 Print Language: Eritrean
[2023-10-23 14:20] LABS: MANUAL DIFF FLAG NO
[2023-10-23 14:30] LABS: Prothrombin Time 11.6 SEC (11.1-13.3)
[2023-10-23 14:32] LABS: Basophils Absolute Auto 0.1 X10*3/uL (0.0-0.2); Basophils Percent Auto 0.6 % (0-2); Eosinophils Absolute Auto 0.3 X10*3/uL (0.0-0.4); Eosinophils Percent Auto 3.9 % (0-4); Hematocrit 39.5 % (37.0-47.0); Hemoglobin 13.7 g/dl (12.0-16.0); Imm Gran Abs Auto 0.03 X10*3/uL (0.00-0.03); Imm Gran Pct Auto 0.4 % (0.0-0.4); Lymphocytes Absolute Auto 2.4 X10*3/uL (1.2-4.9); Lymphocytes Percent Auto 29.8 % (20-40); Mean Corpuscular HGB Conc 34.7 g/dl (31.0-35.0); Mean Corpuscular Hemoglobin 29.2 pg (27.0-33.0); Mean Corpuscular Volume 84.2 fL (80.0-98.0); Mean Platelet Volume 9.9 fL (9.4-12.3); Monocytes Absolute Auto 0.4 X10*3/uL (0.1-1.2); Monocytes Percent Auto 5.1 % (2-11); Neutrophils Absolute Auto 4.9 x10*3/uL (2.0-8.3); Neutrophils Percent Auto 60.2 % (45-73); Platelet Count 271 X10*3/uL (160-400); Red Blood Count 4.69 X10*6/uL (4.20-5.50); Red Cell Distribution Width 12.9 % (11.0-16.0); White Blood Count 8.2 X10*3/uL (4.8-10.8)
[2023-10-23 14:33] LABS: Partial Thromboplastin Time 25.6 SEC (26.0-36.8)
[2023-10-23 14:40] LABS: Alanine Aminotransferase 34 U/L (0-31); Alkaline Phosphatase 55 U/L (39-117); Anion Gap 14 (12-20); Aspartate Amino Transferase 26 U/L (5-31); Bilirubin Total 0.3 mg/dL (0.0-1.0); Blood Urea Nitrogen 11 mg/dL (9-16); Calcium 9.1 mg/dL (8.4-10.2); Carbon Dioxide 25 mmol/L (22-29); Chloride 108 mmol/L (96-108); Creatinine Clr Calc Pharmacy 81.5; Estimated Glomerular Filt Rate > 60; Glucose Random 132 mg/dL (60-115); Sodium 143 mmol/L (135-145); Total Protein 6.6 g/dL (6.5-8.0)
[2023-10-23] MEDS: iohexoL 350 MG/ML 100 ML INFUS..BTL 80 ML IV (15:59)
[2023-10-23 16:20] VITALS: BP 120/74; PULSE 85; RESP 14; TEMP 36.9; O2SAT 99
--- NOTE | 2023-10-23 16:32 | PC.NURSE ---
UA obtained/sent to lab.
[2023-10-23 16:46] LABS: Appearance Urine Clear; Color Urine Yellow; Glucose Urine UA Negative (Negative); Leukocyte Esterase Urine Negative (Negative); Nitrite Urine Negative (Negative); Specific Gravity - Urine >= 1.030 (1.005-1.025); Urine Blood Negative (Negative); Urine Ketones Negative (Negative); Urine Protein Negative (Neg-Trace)
[2023-10-23 16:48] LABS: Bacteria Urine None Seen (None Seen); Hyaline Casts Urine 0-2 /LPF (0-2); RBC Urine 0-2 /HPF (0-2); Squamous Epithelial Cell Urine 0-2 /HPF (0-2); WBC Urine 0-5 /HPF (0-5)
[2023-10-23 18:03] VITALS: BP 120/74; PULSE 85; RESP 14; TEMP 36.9; O2SAT 99
== END 2023-10-23 18:03 | disposition home or self-care (01) ==
PROVIDERS: Physician Assistant; Physician Assistant Medical; Emergency Provider Emergency Medicine
DX: K57.30 Diverticulosis of large intestine without perforation or abscess without bleeding (principal); K62.5 Hemorrhage of anus and rectum; K50.90 Crohn's disease, unspecified, without complications; R10.9 Unspecified abdominal pain
CPT/HCPCS: 36415; 74178; 80053; 81001; 85025; 85610; 85730; 99284; Q9967

== ENCOUNTER 2024-09-04 08:32 | Outpatient (AMB) | payer OTHER, SELFPAY ==
--- NOTE | 2024-09-04 08:52 | A.OFFPC_ITS ---
Vital Signs 09/04/24 08:55 09/04/24 09:34 Height 5 ft 1.02 in Weight 221 lb 4 oz BMI 41.8 BP 130/90 H 138/84 Blood Pressure Location Lt brachial Rt brachial Position Sitting Sitting Pulse 81 Pulse Source Pulse Oximeter Temp 97.6 F Temp Source Temporal Artery Scan Pulse Oximetry (%) 98 Oxygen Delivery Method Room Air Intake Visit Reasons: New Patient Visit Intake Note: Patient is a new patient here to establish care for Colitis, Crohn's, Diverticulitis, Diverticulosis. Transferring care from Dr Amaya. Medical records have been requested and have received. Small Offset Printer Required: No Energy Infrastructure Engineer: Present Accompanied by: Spouse Allergies acetaminophen [Percocet] Adverse Reaction (Unknown, Verified 09/04/24 09:05) nausea and vomiting oxycodone [Percocet] Adverse Reaction (Unknown, Verified 09/04/24 09:05) nausea and vomiting Medication List - Last Reconciled 09/04/24 by Mandy Trinh PA-C No Known Home Meds Tobacco use date assessed: 09/04/24 Dental Screening Dental Screen Date: 09/04/24 Did you have a dental visit in the last 12 months?: No Did you have a dental problem in the last 6 months where you did not have access to dental care?: No Was dental information given to patient?: Patient has dentist HPI New Patient Visit HPI Details 53-year-old female coming to the office for the 1st time. Presenting with concerns about a hernia recurrence. She has previously had surgery for hernias in the front and at the belly button but has begun to experience similar symptoms with pain and bulging in the same area. She describes the pain in the left lower quadrant but feels a bulge in the right lower quadrant. The patient has a history of diverticulosis and Crohn's disease, and her last colonoscopy was in 2019. She acknowledges the stress and mild depression associated with recent life events, for which she has agreed to begin Wellbutrin therapy. She denies a history of high blood pressure, diabetes, asthma, or seizures. She quit smoking 28 years ago. She does struggle with weight gain and has difficulty with cravings. She is looking for a referral to weight management and possibly surgical evaluation. Mammogram: Not up-to-date referral was placed Eye exam: Yearly with [facility] Pap smear: Declining referral to Gynecology Colonoscopy: Last completed 2019 is due this year referral was placed [facility] Medical History (Updated 09/04/24 @ 12:23 by Mandy Trinh PA-C) Crohn's colitis Osteoarthritis Surgical History History of colonoscopy Hx of ventral hernia repair History of tubal ligation Family History Father Hx of Parkinson's disease Family history of high blood pressure Mother Hx of chronic arthritis Hx of kidney disease Social History Housing: Apartment Alcohol intake: never Patient Tobacco Use Status: Former Tobacco user (Quit 28 years ago ) Years Smoked: quit 28 years ago e-Cigarette/Vaping Use: Never Used Second Hand Smoke Exposure: No service: No Current occupational status: employed 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 1. Little interest or pleasure in doing things: not at all 2. Feeling down, depressed, or hopeless: several days 3. Trouble falling or staying asleep, or sleeping too much: not at all 4. Feeling tired or having little energy: several days 5. Poor appetite or overeating: more than half the days 6. Feeling bad about yourself - or that you are a failure or have let yourself or your family down: several days 7. Trouble concentrating on things, such as reading the newspaper or watching television: not at all 8. Moving or speaking so slowly that other people could have noticed. Or the opposite - being so fidgety or restless that you have been moving around a lot more than usual: not at all 9. Thoughts that you would be better off or of hurting yourself in some way: not at all Total score: 5 Depression Screening Interpretation: Positive Depression Screening Follow-up: Existing condition and New Medication prescribed Depression Screening Done: Yes 90700 - PHQ-9 Billing: Yes Source: Developed by Drs. Mitchel Maldonado, Lory Martinez, John Collins and colleagues, with an educational ame from [employer]. Thrive Questionnaire Date Thrive assessed: 08/29/24 I am a: Patient What is your living situation today?: I have a steady place to live Within the past 12 months, did the food you bought not last and you didn't have the money to get more?: Never true Within the past 12 months, did you worry whether your food would run out before you got money to buy more?: Never true Do you have trouble paying for medicines?: No Do you have trouble getting transportation to medical appointments?: No Do you have trouble paying your heating and electricity bill?: No Do you have trouble taking care of your child, family member or friend?: No Do you have trouble with day-to-day activities such as bathing, preparing meals, shopping, managing finances, etc.?: No Are you currently unemployed and looking for a job?: No Are you interested in more education?: No Please select the resources that you would like help with: None Currently or been in a relationship where the following occur: No concerns reported THRIVE Score: 0 AUDIT C Alcohol Use Questionnaire (AUDIT-C) 1. How often do you have a drink containing alcohol?: Never Total Score: 0 SURINDER-7 AMB Questionnaire SURINDER-7 Date SURINDER - 7 assessed: 09/04/24 Feeling nervous, anxious, or on edge: 0 = Not at all Not being able to stop or control worryin = Not at all Worrying too much about different things: 1 = Several days Trouble relaxin = Not at all Being so restless that it is hard to sit still: 1 = Several days Becoming easily annoyed or irritable: 0 = Not at all Feeling afraid as if something awful might happen: 0 = Not at all Total SURINDER-7 score (0-4 normal; 5-9 mild; 10-14 moderate; 15-21 severe): 2 Source: Developed by Drs. Mitchel Maldonado, Lory Martinez, John Collins and colleagues, with an educational ame from [employer]. SURINDER-7 Assessment Billing SURINDER-7 Assessment Tool: SURINDER-7 Assessment 28122 Review of Systems Const Denies body aches, Denies chills, Denies fever(s), Denies headache(s) and Denies poor appetite Eyes Reports no additional complaints ENT Denies dysphagia, Denies dizziness, Denies headache(s) and Denies odynophagia Card Denies chest pain, Denies syncope, Denies edema, Denies irregular heart rhythm, Denies lightheadedness and Denies dyspnea Resp Denies cough and Denies dyspnea GI Details: bulge on the left side of the abdomen where hernia was prev Denies abdominal pain, Denies constipation, Denies dysphagia, Denies diarrhea, Denies nausea, Denies odynophagia and Denies vomiting Reports no additional complaints Musc Reports no additional complaints and Denies abnormal gait Skin/Breast Reports system reviewed and no additional complaints, except as documented Neuro Denies abnormal gait, Denies dizziness, Denies syncope and Denies headache(s) Psych Reports no additional complaints Physical exam (Primary Care) Vital Signs: Last Vital Signs Temp 97.6 F 09/04/24 08:55 Pulse 81 09/04/24 08:55 BP 138/84 09/04/24 09:34 Pulse Ox 98 09/04/24 08:55 Oxygen Delivery Method Room Air 09/04/24 08:55 BMI result Body Mass Index 41.8 Tobacco/Smoking Status: Tobacco use Status Tobacco use date assessed 09/04/24 09/04/24 09:03 Patient Tobacco Use Status Former Tobacco user (Quit 28 09/04/24 09:13 years ago ) e-Cigarette/Vaping Use Never Used 09/04/24 09:03 PHQ-9: PHQ-9 Score PHQ-9: Total score 5 09/04/24 12:22 Depression Screening Interpretation: Positive Depression Screening Follow-up: Existing condition and New Medication prescribed Thrive Assessment: Date of Thrive Assessment Date Thrive assessed 08/29/24 09/04/24 08:52 Currently or been in a relationship where the following occur: No concerns reported Const General: cooperative, healthy appearing, comfortable and no acute distress Orientation/consciousness: patient oriented x3 HENMT Head: Yes normocephalic Ears: hearing grossly normal bilaterally General nose exam: Normal external nose present Eyes General: appearance normal, both eyes and all related structures Conjunctivae: conjunctivae normal Neck Neck: Yes full ROM and Yes no lymphadenopathy Resp Effort & Inspection: normal respiratory effort Auscultation: clear to auscultation bilaterally, no crackles, no rales, no rhonc hi and no wheezes Cardio Rate: regular rate Rhythm: regular rhythm GI Palpation (GI): Soft to palpation, not firm, nontender, no guarding, not rigid, no hernias, no masses and No Rebound tenderness present Skin General skin exam: no rashes or lesions noted Neuro General: patient oriented x3 Gait exam (Neuro): Normal gait present Extrem General: Yes normal to inspection, Yes full ROM and No edema Psych Affect: normal affect Attitude: cooperative Insight: Good insight present (Psych) Judgement: Good judgement present (Psych) Coding Level of Care Code New Pt Level 4 (57344) Diagnoses Crohn's colitis K50.10 Diverticulosis K57.90 Ventral hernia K43.9 Abdominal wall bulge R19.00 Morbid obesity with BMI of 40.0-44.9, adult E66.01; Z68.41 Depression F32.A Additional Codes SURINDER-7 Assessment Billing - SURINDER-7 Assessment Tool: SURINDER-7 Assessment 38824 ([id number]) PHQ-9 - 66675 - PHQ-9 Billing: Yes ([id number]) Assessment & Plan Assessment & Plan (1) Crohn's colitis: Code(s): K50.10 - Crohn's disease of large intestine without complications Category: Medical Plan: Patient has had a colonoscopy [address] Lentz and is due this year. Referral was placed to GI for management of Crohn's colitis as well as colonoscopy evaluation. (2) Diverticulosis: Code(s): K57.90 - Diverticulosis of intestine, part unspecified, without perforation or abscess without bleeding Category: Medical Plan: Referral was placed to GI today for colonoscopy. (3) Ventral hernia: Comment: Repair 2019 Code(s): K43.9 - Ventral hernia without obstruction or gangrene Category: Medical Plan: Patient has a previous history of ventral hernia repair with Dr. Ye in 2020. She does feel a bulge in the right lower quadrant of the abdomen similar to her previous hernia sensation. On exam no bulge was palpated or visualized. CT of the abdomen and pelvis was ordered for further evaluation. (4) Abdominal wall bulge: Code(s): R19.00 - Intra-abdominal and pelvic swelling, mass and lump, unspecified site Category: Medical Plan: see above (5) Morbid obesity with BMI of 40.0-44.9, adult: Code(s): E66.01 - Morbid (severe) obesity due to excess calories; Z68.41 - Body mass index [BMI] 40.0-44.9, adult Category: Medical Plan: Healthy diet and regular exercise is encouraged. Referral was placed to weight management clinic for evaluation and treatment. (6) Depression: Code(s): F32.A - Depression, unspecified Category: Medical Plan: Patient feels worsening depression anxiety surrounding her current life stress. She is interested in oral medication that does not have a side effect of weight gain. Discussed Wellbutrin today plan to start on 100 mg twice daily and follow up in 3 months. Reviewed with patient side effects of this medication advised to reach out if symptoms develop. Plan I will address the hernia recurrence and evaluate the need for further specialist consultation. Her Crohn's disease and diverticulosis history is considered, planning for a colonoscopy in due course after verifying previous tasks such as the polyp removal. For depression symptoms, I will start her on Wellbutrin, noting her concerns about weight. She has consented to following through with a mammogram and a weight management referral, factoring in potential bariatric surgery for better permanent control of her condition. All these align with her comprehensive health maintenance, keeping in mind the prevalent stress elements due to her responsibilities. Plan to obtain blood work and follow up in 3 months. This note was constructed using voice recognition software. While every effort has been made to ensure accuracy and graphic design teacher, still areas may have been included sometimes these areas may affect the content or meeting of the given symptoms. Total time spent caring for the patient today was 30 minutes. This includes time spent before the visit reviewing the chart, time spent during the visit, and time spent after the visit and documentation. Patient was informed and verbally consented to the use of an ambient scribe for clinic note documentation during this visit. Orders: Orders MM tomosynthesis screening BI 09/04/24 Z12.31 - Encounter for screening mammogram for malignant neoplasm of breast Comprehensive Met. Panel 09/04/24 E66.01 - Morbid (severe) obesity due to excess calories, Z00.00 - Encounter for general adult medical examination without abnormal findings, Z68.41 - Body mass index [BMI] 40.0-44.9, adult Vitamin B12 and Folate 09/04/24 E66.01 - Morbid (severe) obesity due to excess calories, Z00.00 - Encounter for general adult medical examination without abnormal findings, Z68.41 - Body mass index [BMI] 40.0-44.9, adult Vitamin D 25-OH Total 09/04/24 E66.01 - Morbid (severe) obesity due to excess calories, Z00.00 - Encounter for general adult medical examination without abnormal findings, Z68.41 - Body mass index [BMI] 40.0-44.9, adult Lipid Panel 09/04/24 E66.01 - Morbid (severe) obesity due to excess calories, Z13.220 - Encounter for screening for lipoid disorders, Z68.41 - Body mass index [BMI] 40.0-44.9, adult CT abdomen pelvis wo IV con 09/04/24 K43.9 - Ventral hernia without obstruction or gangrene, R19.00 - Intra-abdominal and pelvic swelling, mass and lump, unspecified site Complete Blood Count Auto Diff 09/04/24 K50.10 - Crohn's disease of large intestine without complications, Z00.00 - Encounter for general adult medical examination without abnormal findings Free T4 (Free Thyroxine) 09/04/24 E66.01 - Morbid (severe) obesity due to excess calories, Z00.00 - Encounter for general adult medical examination without abnormal findings, Z68.41 - Body mass index [BMI] 40.0-44.9, adult Hemoglobin A1c 09/04/24 E66.01 - Morbid (severe) obesity due to excess calories, Z13.1 - Encounter for screening for diabetes mellitus, Z68.41 - Body mass index [BMI] 40.0-44.9, adult Referrals Gastroenterology Referral K50.10 - Crohn's disease of large intestine without complications, K57.90 - Diverticulosis of intestine, part unspecified, without perforation or abscess without bleeding, Z12.11 - Encounter for screening for malignant neoplasm of colon Medical Weight Management Referral E66.01 - Morbid (severe) obesity due to excess calories, Z68.41 - Body mass index [BMI] 40.0-44.9, adult Medications: New bupropion HCl 100 mg PO BID 60 tabs 1RF
[2024-09-04 08:55] VITALS: BP 130/90; PULSE 81; TEMP 36.4; O2SAT 98; BMI 41.8
[2024-09-04 09:34] VITALS: BP 138/84
== END 2024-09-04 10:10 | disposition home or self-care (01) ==
DX: K50.10 Crohn's disease of large intestine without complications (principal); E66.01 Morbid (severe) obesity due to excess calories; Z68.41 Body mass index [BMI] 40.0-44.9, adult; K57.90 Diverticulosis of intestine, part unspecified, without perforation or abscess without bleeding; K43.9 Ventral hernia without obstruction or gangrene; R19.00 Intra-abdominal and pelvic swelling, mass and lump, unspecified site; F32.A Depression, unspecified

== ENCOUNTER → 2024-09-04 08:32 | Outpatient (BNVA) | payer OTHER, SELFPAY | DX: K50.10 Crohn's disease of large intestine without complications (principal); K57.90 Diverticulosis of intestine, part unspecified, without perforation or abscess without bleeding; K43.9 Ventral hernia without obstruction or gangrene; R19.00 Intra-abdominal and pelvic swelling, mass and lump, unspecified site; E66.01 Morbid (severe) obesity due to excess calories; Z68.41 Body mass index [BMI] 40.0-44.9, adult; F32.A Depression, unspecified | CPT/HCPCS: 96127; 99202 ==

== ENCOUNTER 2024-09-12 07:53 | Outpatient (REF) | payer OTHER, SELFPAY ==
--- OUTSIDE RECORDS SUMMARY | 2024-09-12 07:55 | XMS_ITS ---
Author Organization [facility] Address [address] [place] [address] Care Team Providers Care Vice President Of Academic Affairs Name Role Phone Mandy Morgan Primary Care Provider Unava ilMitchel Price Unavailable [phone] REASON FOR VISIT [place] [facility] [place] Encounter Location Date Provider Diagnosis [facility] [address] [place] [id number] 09/04/2024 Mitchel Campos Plan Of Treatment No Information Progress Notes * SHAI VIDALOB:1970 (53 yo F)Acc No.[id number]:09/04/2024 Patient:?YOUNG, ED :1970???Age:53 Y???Sex:Female Address:[address] [place] [address] * true * Date:? Generated for Iris victor/Edwin/eTransmitting on:?09/12/2024 07:55 AM EDT
--- OUTSIDE RECORDS SUMMARY | 2024-09-12 07:56 | XMS_ITS | Patient Health Record ---
Author Organization [facility] Address [address] [place] [address] Care Team Providers Care Skin Washer Name Role Phone Mandy Morgan Primary Care Provider UnaMitchel Welch Unavailable [phone] Reason For Referral No Information Encounters Encounter Location Date Provider Diagnosis [facility] [address] [place] [address] 09/04/2024 Mitchel Campos Plan Of Treatment No Information Insurance Providers Payer Name Payer Address Payer Phone Subscriber Number Group Number Insured Name Patient Relationship to Insured Coverage Start Date Coverage End Date [facility] [address] [address] [place], [place] [id number] ED VIDAL Self - patient is the insured
[2024-09-12 08:08] LABS: MANUAL DIFF FLAG NO
[2024-09-12 08:27] LABS: Basophils Absolute Auto 0.1 X10*3/uL (0.0-0.2); Basophils Percent Auto 0.8 % (0-2); Eosinophils Absolute Auto 0.5 X10*3/uL (0.0-0.4); Eosinophils Percent Auto 6.9 % (0-4); Hemoglobin 14.3 g/dl (12.0-16.0); Imm Gran Abs Auto 0.02 X10*3/uL (0.00-0.03); Imm Gran Pct Auto 0.3 % (0.0-0.4); Mean Corpuscular HGB Conc 33.3 g/dl (31.0-35.0); Mean Corpuscular Volume 84.1 fL (80.0-98.0); Mean Platelet Volume 10.1 fL (9.4-12.3); Monocytes Absolute Auto 0.5 X10*3/uL (0.1-1.2); Monocytes Percent Auto 6.7 % (2-11); Neutrophils Absolute Auto 4.2 x10*3/uL (2.0-8.3); Neutrophils Percent Auto 57.3 % (45-73); Platelet Count 260 X10*3/uL (160-400); Red Blood Count 5.11 X10*6/uL (4.20-5.50); Red Cell Distribution Width 13.6 % (11.0-16.0); White Blood Count 7.3 X10*3/uL (4.8-10.8)
[2024-09-12 09:13] LABS: Alanine Aminotransferase 40 U/L (0-31); Albumin Level 4.1 g/dL (3.5-5.0); Alkaline Phosphatase 59 U/L (39-117); Anion Gap 11 (12-20); Aspartate Amino Transferase 29 U/L (5-31); Bilirubin Total 0.7 mg/dL (0.0-1.0); Blood Urea Nitrogen 12 mg/dL (9-16); Carbon Dioxide 29 mmol/L (22-29); Chloride 107 mmol/L (96-108); Cholesterol 180 mg/dL (<200); Estimated Glomerular Filt Rate > 60; Glucose Random 109 mg/dL (60-115); HDL Cholesterol 43 mg/dL (>40); LDL Cholesterol Calculated 112 mg/dL (<100); Potassium 4.4 mmol/L (3.3-5.1); Sodium 143 mmol/L (135-145); Total Protein 6.9 g/dL (6.5-8.0); Triglycerides 129 mg/dL (<150)
[2024-09-12 09:26] LABS: Estimated Average Glucose 143 mg/dL; Hemoglobin A1C 181.6411 umol/L; Hemoglobin A1c % 6.6 % (<6.0); Total Hemoglobin (HGBA1C) 3731.7197 umol/L
[2024-09-12 09:29] LABS: Vitamin D 25-OH Total 15.2 ng/mL (>30)
[2024-09-12 09:40] LABS: Folate 7.5 ng/mL (> or = 4.0); Vitamin B12 475 pg/mL (200-900)
== END 2024-09-12 07:54 | disposition home or self-care (01) ==
LOC: HO.LAB 07:53
DX: Z00.00 Encounter for general adult medical examination without abnormal findings (principal); E66.01 Morbid (severe) obesity due to excess calories; Z68.41 Body mass index [BMI] 40.0-44.9, adult; Z13.220 Encounter for screening for lipoid disorders; K50.10 Crohn's disease of large intestine without complications; Z13.1 Encounter for screening for diabetes mellitus
CPT/HCPCS: 36415; 80053; 80061; 82306; 82607; 82746; 83036; 84439; 85025

== ENCOUNTER 2024-10-16 11:35 | Outpatient (REF) | payer OTHER, SELFPAY ==
--- OUTSIDE RECORDS SUMMARY | 2024-10-16 13:11 | XMS_ITS ---
Author Organization [facility] Address [address] [place] [phone] Care Team Providers Care Nnps Name Role Phone Mandy Morgan Primary Care Provider Unava ilMitchel Price Unavailable [phone] REASON FOR VISIT patient is [place] [facility] [place]coun[place] Encounter Location Date Provider Diagnosis [facility] [address] [place] [phone] 09/04/2024 Mitchel Campos Plan Of Treatment No Information Progress Notes * SHAI VIDALOB:1970 (53 yo F)Acc No.[id number]:09/04/2024 Patient:?YOUNG, ED :1970???Age:53 Y???Sex:Female Address:[address] [place] [address] * true * Date:? Generated for Iris victor/Edwin/eTransmitting on:?10/16/2024 01:10 PM EDT
== END 2024-10-16 11:36 | disposition home or self-care (01) ==
LOC: HO.MAMMO 11:35
DX: Z12.31 Encounter for screening mammogram for malignant neoplasm of breast (principal)
CPT/HCPCS: 77063; 77067

== ENCOUNTER → 2024-10-16 11:45 | Outpatient (BNV) | payer OTHER, SELFPAY | PROVIDERS: Visit Provider Internal Medicine | DX: Z12.31 Encounter for screening mammogram for malignant neoplasm of breast (principal) | CPT/HCPCS: 77063; 77067 ==

== ENCOUNTER 2024-10-22 08:22 | Outpatient (AMB) | payer OTHER, SELFPAY ==
--- OUTSIDE RECORDS SUMMARY | 2024-10-22 08:33 | XMS_ITS | Patient Health Record ---
Author Organization [facility] Address [address] [place] [address] Care Team Providers Care Desulphuring Operator Name Role Phone Mandy Morgan Primary Care Provider UnaMitchel Welch Unavailable [phone] Reason For Referral No Information Encounters Encounter Location Date Provider Diagnosis [facility] [address] [place] [address] 09/04/2024 Mitchel Campos Plan Of Treatment No Information Insurance Providers Payer Name Payer Address Payer Phone Subscriber Number Group Number Insured Name Patient Relationship to Insured Coverage Start Date Coverage End Date [facility] [address] [address] [place], [place] [id number] ED VIDAL Self - patient is the insured
--- NOTE | 2024-10-22 10:45 | A.OFFVIS_ITS ---
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 BMI 41.2: Details: Start time: 11.43am, End time: 11.16am ?I spent 28 minutes speaking with the patient on the phone plus an additional 5 minutes reviewing and updating records for a total of 33 minutes HPI Comments Details: Previous weight loss efforts: Noom (14lbs), self diets Wakes up: 5am, Sleeps: 8pm Breakfast: skips Lunch: 12pm (sandwich) Dinner: 4-4.30pm (chicken) Snacks: 8am (fruits), 3pm (chips or fruits), 7pm (same) Exercise: has a home rowing machine Beverages: Coffee: (1 cup/d with cream), tea: none, soda: rare, juice: none, ETO H: none PFSH Medical History (Updated 10/22/24 @ 11:04 by Shayne Aquino MD) Morbid obesity Crohn's colitis Osteoarthritis Surgical History History of colonoscopy Hx of ventral hernia repair History of tubal ligation Family History Father Hx of Parkinson's disease Family history of high blood pressure Mother Hx of chronic arthritis Hx of kidney disease Social History Housing: Apartment Alcohol intake: never Patient Tobacco Use Status: Former Tobacco user (Quit 28 years ago ) Years Smoked: quit 28 years ago e-Cigarette/Vaping Use: Never Used Second Hand Smoke Exposure: No service: No Current occupational status: employed 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 Cognitive needs: No Hearing needs: No Vision needs: Yes (Reading Glasses) Telehealth Telehealth Telehealth Platform: Telephone Location of provider rendering services: practice address Location of patient: address on file Patient Identification confirmed using: Name, : Yes Telehealth method: voice only Patient verbally consented to treatment: Yes Patient verbally consented to billing insurance company: Yes Patient informed of any privacy concerns related to visit: Yes Minutes spent on Phone/Video with Pt.: 33 Assessment & Plan Assessment & Plan (1) Morbid obesity: Code(s): E66.01 - Morbid (severe) obesity due to excess calories Category: Medical Plan: 1.? Plan for lap sleeve gastrectomy. If diaphragmatic or ventral hernias are present at time of surgery, these will be repaired laparoscopically as well. I emphasized the importance of close follow-up, adherence to instructions and good communication. The surgery does not replace the need to change your lifestlyle which is the cause of the obesity problem. The surgery provides the motivation to try again to change your lifestyle, it reduces the appetite and make the transition to a better lifestyle easier and doubles the amount of tierra ght you would lose compared to doing the lifestyle change without the surgery. You will need to be on a liquid diet with protein shakes for 2 weeks before surgery to maximize weight loss and boost your nutritional status to recover better from surgery and also for the first two weeks after surgery to let the stomach heal before we introduce other foods. After the first 2 weeks we will introduce protein bars and soft foods like scrambled eggs, cottage cheese and yogurt and after the 6th week will introduce meat, fish and cooked vegetables in small amounts. Over time you should be able to eat everything in small amounts. Side effects like nausea, vomiting, heartburn or abdominal pain are not common in the practice unless you are not following in the practice. This operation requires lifetime commitment to following in our practice and communication with me. You will much less weight and experience side effects if you don?t communicate or not following in the practice. Complications are rare and in our practice is about 1/10 of the national average. However, you can develop bleeding that may require transfusion (hasn?t happened for year in the practice), you may from complications (we did not have any deaths in the practice) and infections. Infections are usually a result of breakdown in communication or not understanding or following directions correctly. They are difficult to treat, they can happen during the first 6 weeks, they may require to be in the hospital for weeks or even months, not being able to eat by mouth and you may have drains and surgeries to try and correct the issue. Other risks and complications include possible conversion to an open procedure, leaks, small bowel obstruction, blood clots, cardiac, or pulmonary complications, as exterminator termite complications such as ulcers, insufficient weight loss and vitamin deficiencies. 2. You will receive a link of our software elias to generate an individualized nutritional and exercise plan specific for you. Please send me a screenshot of the plans you will generate Meal to include lean meat (beef, fish, pork, turkey, chicken), or v[place] citizen yogurt, or egg whites, or beans with a salad with olive oil and fruits (berries, pears, apples, kiwi). Avoid salt, breads, potatoes, rice, pasta, desserts. ?3. If you choose shakes, each shake would be drunk slowly, like coffee in a period of 2 hours. ?4. If you choose bars, cut each bar in 4 pieces and eat each piece in 30min ?to make each bar last 2 hours. ?5. I emphasized the importance of measuring accurately the food portion and measure it when serving the food in plate ?6. The meal portions include a specific number of forks of meat and salad. You always eat the meat portion but you can replace up to half of salad/vegetables portion with rice, potatoes or pasta, or a fruit ?if you like. The less you do it the better weight loss will be. ?7. One full-size fork is what it can be scooped on the fork without falling aside and not what can be bit with the fork. Use regular forks like those you find in a typical restaurant. ?8.? Please buy the body composition scale we discussed and send me weight measurements as soon as possible and then once a week. Always include your diet and exercise plan. 9. The best choice would be to purchase a stationary bike, elliptical or treadmill at home that can track calories. Let me know if you do so I can give you an exercise plan. 9. The best exercise choice would be to use your treadmill at home that can track calories. You can create and exercise plan with the [employer] elias. ?10.?It is important of avoiding and for at least 18 months postoperatively and has been discussed at the infosession. ?11. Goal is to lose at least 1.5-2lbs per week ?12. Goal to lose 10% of your weight before surgery, which is about 22lbs. Ultimate weight goal: 196lbs before surgery 13. Please follow the diet plan exactly without any change. If you don't like something about the plan or you feel hungry you need to communicate with me so I can help you revise the plan. You should not change the plan yourself. 14. To be scheduled for EGD to assess the stomach?s anatomy. The possibility of biopsies was discussed. Patient needs to avoid use of NSAIDs and aspirin for 1 week prior to EGD. You must be on liquids only the day before your endoscopy. Risks of perforation and bleeding was discussed with the patient. This will be an outpatient procedure with IV sedation. Orders: Orders Insulin Today E66.01 - Morbid (severe) obesity due to excess calories Hemoglobin A1c Today E66.01 - Morbid (severe) obesity due to excess calories Complete Blood Count Auto Diff Today E66.01 - Morbid (severe) obesity due to excess calories Lipid Panel Today E66.01 - Morbid (severe) obesity due to excess calories Vitamin A Today E66.01 - Morbid (severe) obesity due to excess calories TSH reflex Free T4 Today E66.01 - Morbid (severe) obesity due to excess calories US abdomen comp w elastography Today E66.01 - Morbid (severe) obesity due to excess calories FL upper GI w air Today E66.01 - Morbid (severe) obesity due to excess calories H Pylori Breath Test Today E66.01 - Morbid (severe) obesity due to excess calories IRON PROFILE Today E66.01 - Morbid (severe) obesity due to excess calories Comprehensive Met. Panel Today E66.01 - Morbid (severe) obesity due to excess calories Vitamin B12 and Folate Today E66.01 - Morbid (severe) obesity due to excess calories Zinc Today E66.01 - Morbid (severe) obesity due to excess calories C Reactive Protein Today E66.01 - Morbid (severe) obesity due to excess calories Vitamin B1 Today E66.01 - Morbid (severe) obesity due to excess calories Ferritin Today E66.01 - Morbid (severe) obesity due to excess calories Vitamin D 25-OH Total Today E66.01 - Morbid (severe) obesity due to excess calories XR chest 2V Today E66.01 - Morbid (severe) obesity due to excess calories ECG 12 lead EKG Today E66.01 - Morbid (severe) obesity due to excess calories Referrals Behavioral Health Referral E66.01 - Morbid (severe) obesity due to excess calories Nutrition/Dietitian Referral E66.01 - Morbid (severe) obesity due to excess calories
[2024-10-22 10:56] VITALS: BMI 41.2
== END 2024-10-22 11:17 | disposition home or self-care (01) ==
LOC: HO.HBS 08:22
PROVIDERS: Visit Provider Surgery
DX: E66.01 Morbid (severe) obesity due to excess calories (principal)
CPT/HCPCS: 99203

== ENCOUNTER 2024-10-29 08:06 | Outpatient (REF) | payer OTHER, SELFPAY ==
--- NOTE | ~2024-10-29 | XR_ITS ---
EXAMINATION: XR CHEST CLINICAL INFORMATION: E66.01 - Morbid (severe) obesity due to excess calories COMPARISON: None available. TECHNIQUE: 2 views of the chest were obtained. FINDINGS: No consolidation, pleural effusion or pneumothorax. No hyperinflation. Cardiomediastinal silhouette size is normal. Multilevel thoracic and upper lumbar sclerosis patient's large body habitus. XR/XR chest 2V IMPRESSION: No acute airspace disease. Spondylosis, thoracolumbar.. Electronically signed by: Emir Palencia MD 10/29/2024 02:00 PM EDT
--- OUTSIDE RECORDS SUMMARY | 2024-10-29 08:11 | XMS_ITS | Patient Health Record ---
Author Organization [facility] Address [address] [place] [address] Care Team Providers Care News Technical Director Name Role Phone Mandy Morgan Primary Care Provider UnaMitchel Welch Unavailable [phone] Reason For Referral No Information Encounters Encounter Location Date Provider Diagnosis [facility] [address] [place] [address] 09/04/2024 Mitchel Campos Plan Of Treatment No Information Insurance Providers Payer Name Payer Address Payer Phone Subscriber Number Group Number Insured Name Patient Relationship to Insured Coverage Start Date Coverage End Date [facility] [address] [address] [place], [place] [id number] ED VIDAL Self - patient is the insured
[2024-10-29 08:38] LABS: MANUAL DIFF FLAG NO
[2024-10-29 08:54] LABS: Basophils Absolute Auto 0.1 X10*3/uL (0.0-0.2); Basophils Percent Auto 1.3 % (0-2); Eosinophils Absolute Auto 0.3 X10*3/uL (0.0-0.4); Eosinophils Percent Auto 5.9 % (0-4); Hematocrit 43.2 % (37.0-47.0); Hemoglobin 14.7 g/dl (12.0-16.0); Imm Gran Abs Auto 0.01 X10*3/uL (0.00-0.03); Imm Gran Pct Auto 0.2 % (0.0-0.4); Lymphocytes Absolute Auto 1.5 X10*3/uL (1.2-4.9); Lymphocytes Percent Auto 28.2 % (20-40); Mean Corpuscular Hemoglobin 28.7 pg (27.0-33.0); Mean Corpuscular Volume 84.2 fL (80.0-98.0); Mean Platelet Volume 10.2 fL (9.4-12.3); Monocytes Absolute Auto 0.5 X10*3/uL (0.1-1.2); Monocytes Percent Auto 8.7 % (2-11); Neutrophils Percent Auto 55.7 % (45-73); Platelet Count 240 X10*3/uL (160-400); Red Blood Count 5.13 X10*6/uL (4.20-5.50); Red Cell Distribution Width 13.5 % (11.0-16.0); White Blood Count 5.4 X10*3/uL (4.8-10.8)
[2024-10-29 09:10] LABS: Estimated Average Glucose 134 mg/dL; Hemoglobin A1c % 6.3 % (<6.0)
[2024-10-29 09:29] LABS: Alanine Aminotransferase 58 U/L (0-31); Albumin Level 4.5 g/dL (3.5-5.0); Alkaline Phosphatase 63 U/L (39-117); Anion Gap 13 (12-20); Aspartate Amino Transferase 43 U/L (5-31); Bilirubin Total 0.6 mg/dL (0.0-1.0); Blood Urea Nitrogen 15 mg/dL (9-16); C Reactive Protein 0.83 mg/dL (< or = 0.50); Calcium 9.2 mg/dL (8.4-10.2); Carbon Dioxide 28 mmol/L (22-29); Chloride 105 mmol/L (96-108); Cholesterol 186 mg/dL (<200); Estimated Glomerular Filt Rate > 60; Glucose Random 97 mg/dL (60-115); HDL Cholesterol 36 mg/dL (>40); Iron 49 mcg/dL (30-160); LDL Cholesterol Calculated 133 mg/dL (<100); Percent Iron Saturation 17 % (15-50); Potassium 4.4 mmol/L (3.3-5.1); Sodium 142 mmol/L (135-145); Total Iron Binding Capacity 296 mcg/dL (228-428); Total Protein 7.1 g/dL (6.5-8.0); Triglycerides 89 mg/dL (<150); Unsaturated Iron Binding 247 ug/dL
[2024-10-29 09:51] LABS: Ferritin 80 ng/mL (10-250); Insulin 12 uU/mL (2-29); TSH reflex Free T4 1.35 uIU/mL (0.32-4.0); Vitamin D 25-OH Total 22.5 ng/mL (>30)
[2024-10-29 09:58] LABS: Folate 8.8 ng/mL (> or = 4.0); Vitamin B12 595 pg/mL (200-900)
--- NOTE | 2024-10-29 13:31 | ECG_ITS ---
Test Reason : E66.01 Blood Pressure : */* mmHG Vent. Rate : 72 BPM Atrial Rate : 72 BPM P-R Int : 130 ms QRS Dur : 80 ms QT Int : 388 ms P-R-T Axes : 38 5 14 degrees QTcB Int : 424 ms Sinus rhythm with marked sinus arrhythmia Otherwise normal ECG No previous ECGs available Referred By: Shayne Aquino Electronically Signed By: SANDRA JOHNS MD
[2024-10-31 13:04] LABS: Zinc 83 mcg/dL (60-130)
[2024-11-05 00:59] LABS: Vitamin A 38 mcg/dL (38-98)
[2024-11-05 01:44] LABS: Vitamin B1 7 nmol/L (8-30)
== END 2024-10-29 08:07 | disposition home or self-care (01) ==
LOC: HO.LAB 08:06
PROVIDERS: Visit Provider Surgery
DX: E66.01 Morbid (severe) obesity due to excess calories (principal)
CPT/HCPCS: 36415; 71046; 80053; 80061; 82306; 82607; 82728; 82746; 83036; 83525; 83540; 84425; 84443; 84590; 84630; 85025; 86140; 93005

== ENCOUNTER → 2024-10-29 13:31 | Outpatient (BNV) | payer OTHER, SELFPAY | PROVIDERS: Visit Provider Internal Medicine Cardiovascular Disease | DX: E66.9 Obesity, unspecified (principal) | CPT/HCPCS: 93010 ==

== ENCOUNTER → 2024-10-29 13:39 | Outpatient (BNV) | payer OTHER, SELFPAY | PROVIDERS: Visit Provider Radiology Diagnostic Radiology | DX: M47.895 Other spondylosis, thoracolumbar region (principal) | CPT/HCPCS: 71046 ==

== ENCOUNTER 2024-11-07 09:53 | Day surgery (SDC) | payer OTHER, SELFPAY ==
--- OUTSIDE RECORDS SUMMARY | 2024-10-25 11:39 | XMS_ITS | Patient Health Record ---
Author Organization [facility] Address [address] [place] [address] Care Team Providers Care Blast Furnace Helper Name Role Phone Mandy Morgan Primary Care Provider UnaMitchel Welch Unavailable [phone] Reason For Referral No Information Encounters Encounter Location Date Provider Diagnosis [facility] [address] [place] [address] 09/04/2024 Mitchel Campos Plan Of Treatment No Information Insurance Providers Payer Name Payer Address Payer Phone Subscriber Number Group Number Insured Name Patient Relationship to Insured Coverage Start Date Coverage End Date [facility] [address] [address] [place], [place] [id number] ED VIDAL Self - patient is the insured
--- NOTE | 2024-11-06 11:59 | HO.ANESPROP2 ---
Documented by User: Rea Rajan NP 11/06/24 12:00 HPI - Anesthesia Eval Consult details Narrative: 53yo F for ?Upper Endoscopy PMFSH Active Problems Active Problems: All Active Problems Vitamin D deficiency (Acute) Morbid obesity (Acute) Hypercholesterolemia (Acute) Diabetes mellitus (Acute) Abdominal wall bulge (Acute) Depression (Acute) Morbid obesity with BMI of 40.0-44.9, adult (Acute) Diverticulosis (Acute) Ventral hernia (Acute) Crohn's colitis (Acute) Past Medical History Medical History (Updated 10/31/24 @ 14:06 by Shayne Aquino MD) Morbid obesity Crohn's colitis Osteoarthritis Family History Family History Father Hx of Parkinson's disease Family history of high blood pressure Mother Hx of chronic arthritis Hx of kidney disease Surgical History Surgical History History of colonoscopy Hx of ventral hernia repair History of tubal ligation Social History Social History Housing: Apartment Alcohol intake: never Patient Tobacco Use Status: Former Tobacco user Tobacco use type: Cigarette Years Smoked: 18 Smoked in Last 30 Days: No e-Cigarette/Vaping Use: Never Used Second Hand Smoke Exposure: No Use of substances other than those prescribed or required for medical reasons: No Have you been hit, kicked, punched, or otherwise hurt by someone within the past year? 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 Cognitive needs: No Hearing needs: No Vision needs: Yes (Reading Glasses) Meds Allergies Allergy/AdvReac Type Severity Reaction Status Date / Time acetaminophen (Percocet) AdvReac Intermediate nausea and Verified 11/07/24 10:28 vomiting oxycodone (Percocet) AdvReac Intermediate nausea and Verified 11/07/24 10:28 vomiting Assessment and Plan Assessment Anesthesia Assessment: Chart Reviewed Documented by User: Macrina Larry MD 11/07/24 11:37 [facility] Past Medical History Medical History (Updated 10/31/24 @ 14:06 by Shayne Aquino MD) Morbid obesity Crohn's colitis Osteoarthritis Family History Family History Father Hx of Parkinson's disease Family history of high blood pressure Mother Hx of chronic arthritis Hx of kidney disease Family history of problems with anesthesia: No Surgical History Surgical History History of colonoscopy Hx of ventral hernia repair History of tubal ligation History of Problems with Anesthesia: No Social History Social History Housing: Apartment Alcohol intake: never Patient Tobacco Use Status: Former Tobacco user Tobacco use type: Cigarette Years Smoked: 18 Smoked in Last 30 Days: No e-Cigarette/Vaping Use: Never Used Second Hand Smoke Exposure: No Use of substances other than those prescribed or required for medical reasons: No Have you been hit, kicked, punched, or otherwise hurt by someone within the past year? 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 Cognitive needs: No Hearing needs: No Vision needs: Yes (Reading Glasses) Meds Allergies Allergy/AdvReac Type Severity Reaction Status Date / Time acetaminophen (Percocet) AdvReac Intermediate nausea and Verified 11/07/24 10:28 vomiting oxycodone (Percocet) AdvReac Intermediate nausea and Verified 11/07/24 10:28 vomiting Exam Airway Mallampati Class: II TM Dist: >3cm Neck ROM: Full Denture: Upper Heart: rrr Lungs: cta Assessment and Plan Assessment Anesthesia Assessment: Anesthesia Plan Discussed Final Anesthetic Review Family History of Problems with Anesthesia: No History of Problems with Anesthesia: No NPO: Yes ASA Class: II Final Preanesthetic Review: No Changes in Pt Med Stat, Meds/Allgs Chart Reviewed and Consent Obtained/Reviewed Patient Risk: Intermediate Procedure Risk: Intermediate Anesthetic Plan Anesthetic Plan: MAC: Disposition: Standard PACU
[2024-11-07 10:25] VITALS: BP 138/66; PULSE 67; RESP 17; TEMP 36.2; O2SAT 96; BMI 38.4
[2024-11-07] MEDS: Lactated Ringers 1,000 ML 80 ML IVCONT (10:35)
--- NOTE | 2024-11-07 12:23 | P.HPSUR_ITS ---
Pre-Procedural Eval Section A - 24 Hr Update-Section A only Date of Service: 11/07/24 The patient is an INPATIENT: No The patient has been examined within 24 hours of the surgical procedure. The History & Physical has been completed within 30 days and I have reviewed it.: Yes Section B - Complete if H&P > 30 days Chief Complaint: Morbid (severe) obesity due to excess calories Relevant Family History (Specify if Yes): No Relevant Social History: None Present Medications: None Medical History: No relevant PMH History of Previous Operations: No relevant previous surgery Allergies: Allergies Allergy/AdvReac Type Severity Reaction Status Date / Time acetaminophen (Percocet) AdvReac Intermediate nausea and Verified 11/07/24 10:28 vomiting oxycodone (Percocet) AdvReac Intermediate nausea and Verified 11/07/24 10:28 vomiting Review of Systems Sugical H&P ROS: Negative: Constitution, Cardiovascular, Respiratory, Neurological, Psychiatric, Hem-Onc, Allergic/Immunologic, Gastrointestinal, Genitourinary, Musculoskeletal, Integumentary, Endocrine and Eyes/Ears/Nose/Throat Exam Surgical H&P Exam: Normal: HEENT, Normal: Heart, Normal: Lungs, Normal: Extremities, Normal: Abdomen, Normal: Skin and Normal: Neurological Plan Diagnosis/Plan: Unchanged (EGD to assess the stomach's anatomy. Risks of bl eeding and perforation were discussed with the patient and she is in agreement with the plan.) I have reviewed the history and physical and performed a pertinent physical examination on my patient. No changes have occurred unless specified. Time Spent With Patient Time: Total time managing care of this patient today ____ minutes.
[2024-11-07 12:49] VITALS: BP 103/48; PULSE 70; RESP 16; TEMP 36.4; O2SAT 96
--- NOTE | 2024-11-07 12:57 | PM.OP ---
Brief Operative Note Date of Service: 11/07/24 Pre-op diagnosis: Morbid obesity Post-op diagnosis: same (Duodenitis) Procedure: PROCEDURE DATE: 11/07/2024 PREOPERATIVE DIAGNOSIS: Morbid obesity POSTOPERATIVE DIAGNOSIS: ?Same as above. 1) Duodenitis PROCEDURE: [id number] with biopsies Surgeon: ?Pee Aquino M.D.. Ph.D. Nutrition Internship: None ? Anesthesia: IV sedation Estimated blood loss: ?Minimal FINDINGS AND PROCEDURE: ? OPERATIVE INDICATIONS: ?The patient is a 53 year old female known to me who is interested in bariatric surgery. Based on this information I recommended an upper endoscopy to evaluate the stomach's anatomy. Risks and complications of the surgery were discussed with the patient in advance particularly the possibility of perforation or bleeding that may require surgical intervention. The patient understood the risks and was in agreement with the plan. ? PROCEDURE: After informed consent was obtained by the patient, the patient was ?transferred to the Operating Room and was placed in the supine position.? After successful induction of IV sedation, a mouth block was inserted and the patient was placed in the left lateral decubitus position. An upper endoscopy was performed next, the oropharynx and esophagus appeared within the normal limits. There was no hiatal hernia. The z-line was smooth. Two biopsies were obtained from the distal esophagus 2-3 cm proximal to the GE junction and two additional biopsies from the GE junction. The stomach was entered and it appeared to be of normal size. There was no gastritis. There was no stricture or ulcer. A biopsy was obtained from the gastric fundus and the antrum. No significant bleeding was noted from any of the biopsy sites. Retroflexion of the scope confirmed a normal GE junction. The scope was then advanced into the duodenum. There was patchy erythema at the 1st and 2nd portion of the duodenum. One biopsy was performed.. At that point the duodenum ?and the stomach were decompressed and the scope was withdrawn from the patient's mouth. The patient extubated and was transferred in stable condition to the Recovery Room for further care. I was present and performed all steps of the procedure. There were no residents to assist with this case. Pee Aquino M.D., Ph.D. Surgeon: Shayne Aquino MD Anesthesia: MAC Was an Nutrition Internship used for this Procedure?: No Estimated blood loss (mL): 0 IV fluids (mL): 400 Urine output (mL): 0 (No Mejia to record output) Pathology: other (1) antrum x1, 2) fundus x1, 3) GE junction x2, 4) distal esophagus x2, 5) duodenum x1) Condition: stable Disposition: PACU
[2024-11-07 13:03] VITALS: BP 102/65; PULSE 78; RESP 16; O2SAT 94
[2024-11-07 13:15] VITALS: BP 102/65; PULSE 79; RESP 18; TEMP 36.4; O2SAT 95
== END 2024-11-07 13:55 | disposition home or self-care (01) ==
PROVIDERS: Visit Provider Surgery
PROC: 0DJ08ZZ Inspection of Upper Intestinal Tract, Via Natural or Artificial Opening Endoscopic (ICD-10-PCS; CPT 43235; principal; 2024-11-07 12:20)
DX: E66.01 Morbid (severe) obesity due to excess calories (principal); Z68.41 Body mass index [BMI] 40.0-44.9, adult; K29.80 Duodenitis without bleeding; K50.90 Crohn's disease, unspecified, without complications; M19.90 Unspecified osteoarthritis, unspecified site; Z79.899 Other long term (current) drug therapy; Z88.5 Allergy status to narcotic agent; Z98.51 Tubal ligation status; Z87.891 Personal history of nicotine dependence
CPT/HCPCS: 43239; 88305; 88313; 88342; J2704

== ENCOUNTER → 2024-11-07 09:53 | Outpatient (BNV) | payer OTHER, SELFPAY | PROVIDERS: Visit Provider Surgery | DX: K29.80 Duodenitis without bleeding (principal) | CPT/HCPCS: 43239 ==

== ENCOUNTER 2024-11-16 10:00 | Outpatient (AMB) | payer OTHER, SELFPAY ==
--- NOTE | 2024-11-16 10:05 | A.OFFWM_ITS ---
Intake Intake Visit Reasons: TV BH Intake Allergies acetaminophen (Percocet) Adverse Reaction (Intermediate, Verified 11/07/24 10:28) nausea and vomiting oxycodone (Percocet) Adverse Reaction (Intermediate, Verified 11/07/24 10:28) nausea and vomiting [facility] Medical History (Updated 11/16/24 @ 11:02 by Danielle Man [facility]) Morbid obesity Crohn's colitis Osteoarthritis Surgical History History of colonoscopy Hx of ventral hernia repair History of tubal ligation Family History Father Hx of Parkinson's disease Family history of high blood pressure Mother Hx of chronic arthritis Hx of kidney disease Social History Housing: Apartment Alcohol intake: never Patient Tobacco Use Status: Former Tobacco user Tobacco use type: Cigarette Years Smoked: 18 e-Cigarette/Vaping Use: Never Used Second Hand Smoke Exposure: No service: No Current occupational status: employed 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 Their primary motivation for pursuing the program is to improve physical health, stay active, and remain engaged with their grandchildren as a present and involved grandparent. Over a month ago, the patient?s PCP prescribed Bupropion 100 mg due to symptoms including feelings of being overwhelmed, panic-like episodes, low mood, and reduced motivation to engage in daily activities. These symptoms developed gradually in the context of increasing caregiving responsibilities during her father?s illness and progressed to emotional exhaustion and social withdrawal. Symptoms worsened following her father?s passing in May. The patient reports that these symptoms have improved since starting the medication. The patient reports a brief period of counseling approximately 10 years ago, related to job loss. They deny any history of psychiatric hospitalization, ayala is intervention, suicidal ideation, self-harm, harm to others, or substance use. There is no indication of emotional or stress-related eating. Binge Eating Scale (BES) scores indicate low risk for disordered eating, and PHQ-9 results show no active depressive symptoms. The mental status examination is within normal limits, with no evidence of impaired functioning. At this time, the patient is behaviorally and psychologically stable and is cleared for surgical weight loss from a behavioral health standpoint. Presenting Concerns Referral Source WMP-Provider. Reason for referral Completion of behavioral health assessment as part of process for weight-loss surgery. Precipitating Event Obesity. Living Situation Current Living Situation Rent At risk of losing current housing? No Satisfied with current living situation? Yes Comments PT lives in a multifamily rental property, she lives in the 3rd floor with her boyfriend and her dog; and her mother in the 2nd floor. 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 The initial goal is to lose 10% of her weight before surgery, which is about 22lbs. Ultimate weight goal: 196lbs before surgery PT is implementing the following: Current meal plan: a combination of shakes, bars, and 1 meal. Exercise plan: rowing machine and treadmill. 3-4 days at week. scale: yes communication with/ provider: Wednesdays. History/Relationship with food Pt reported she would overeat, knowing she was full. Denies any stress-eating, or how she felt, made a difference in her eating. When eating things she likes, she has issues stopping and would eat until gone. Example of meals before starting the program: Breakfast: skips Lunch: noon (sandwich) Dinner: 4-4.30 pm (full meal example: meat, potatoes and a vegetable) Snacks: 8am (fruits), 3pm (chips or fruits), 7pm (same) Beverages: Coffee: (1 cup/d with cream), tea: none, soda: rare, juice: none, ETOH: none, energy drinks: none. History/Relationship with weight PT reports she has had a weight thakkar ever since having her first son at 19, Pre-, she was 115Lbs. In the last 10 years, the patient's Lowest weight was 197Lbs and the highest 223Lbs. History/Relationship with dieting Tramaine (lost 14lbs), self-diet, went a weight- management program who did also shakes. Binge Eating Do you frequently eat large amounts of food in short periods of time, not feeling physically hungry? Yes Do you feel out of control when you eat a large amount of food in a short pe riod of time? No Do you eat large amounts of food rapidly and typically alone? No Night Eating Do you wake up at least once during the night to eat? No If you wake up in the night, do you find that it is necessary to eat something in order to fall back asleep? No Do you have little or no appetite in the morning and feel very hungry in the evening, often overeating between dinner and when you go to bed? Yes Social History Family history and relationship several years ago. Currently with her boyfriend for 13 years She has 4 adult children with her first . 3 siblings. Father , mother a live, she is 89 y/o and PT cares for her. 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 Developmental history and status Hx of Hip dysplasia. Currently WNL. Social support Children, boyfriend, mother. Community support None. Muslim/Spirituality None. Cultural/Ethnic information . Legal Involvement and History Current or historical involvement with the legal system? None reported. Education Highest grade completed 11th. Preferred learning style Learn by doing Currently enrolled in educational program? No Interested in further educational program? 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 ) Wants help to find employment? No Meaningful activities Sewing, family activities. Financial Situation Describe current financial situation Comfortable Financial assistance? None Service Service? No Mental Health and Addiction Treatment Current/Past substance abuse? No Comments Alcohol: 2x year. 1 beer. Cigarettes/Tobacco: None Cannabis/Edibles: None. Current/Past addictive behavior concerns? No Psychiatric history Her PCP is prescribing her with Bupropion 100mg over a month ago as she was feeling overwhelmed, panic-like Sx, sad, down, found hard to get up and do her normal life. PT reports this was not an abrupt situation it started slowly as her dad got sick and her caregiving duties increased, she started feeling drained and fatigued over time, leading to her feeling emotionally exhausted and avoiding going out. After her father in May her Sx intensified. PT attended counseling about 10 years ago for about 3 months as she was going through a difficult time after losing her job. PT Denies ever being in crisis or inpatient for mental health. There is no history and/or current concern about SI/SA and self-harm or other harm. Medical and Physical Health Summary Additional Medical History not covered in history None aditional Sexual History concerns None reported Physical exam in the last year? Yes Pain Screening Current pain? No Pain in the last few months? Yes Comments Knee pain, colitis/crohn's when flares is painful. Medications Is the patient compliant with medications? Yes Does the patient have [place] Guardian in place? Not applicable Does the patient use complimentary health approaches? No Trauma/Abuse History History of trauma? No Questionnaires PHQ-9 Over the last 2 weeks, how often have you been bothered by any of the following problems? 1. Little interest or pleasure in doing things: not at all 2. Feeling down, depressed, or hopeless: not at all 3. Trouble falling or staying asleep, or sleeping too much: not at all 4. Feeling tired or having little energy: not at all 5. Poor appetite or overeating: not at all 6. Feeling bad about yourself - or that you are a failure or have let yourself or your family down: not at all 7. Trouble concentrating on things, such as reading the newspaper or watching television: not at all 8. Moving or speaking so slowly that other people could have noticed. Or the opposite - being so fidgety or restless that you have been moving around a lot more than usual: not at all 9. Thoughts that you would be better off or of hurting yourself in some way: not at all Total score: 0 Depression Screening Interpretation: Negative (Initial score from New Pt pack was 7 done on 09/27/2024.) Depression Screening Done: Yes 55736 - PHQ-9 Billing: Yes Source: Developed by Drs. Mitchel Maldonado, Lory Martinez, John Collins and colleagues, with an educational ame from [employer]. Binge Eating Scale Group 1 A. I don't feel self-conscious about my wt. or body size when I'm with others. B. I feel concerned about how I look to others, but it normally does not make me fell disappointed with myself C. I do get self-conscious about my appearance and wt. which makes me feel disappointed in myself. D. I feel very self-conscious about my wt. and frequently I feel intense shame and disgust for myself. I try to avoid social contacts because of my self- consciousness. Response Group 1: C Group 2 A. I don't have any difficulty eating slowly in the proper manner. B. Although I seem to gobble down foods, I don't end up feeling stuffed because of eating to much. C. At times, I tend to eat quickly and then, I feel uncomfortably full afterwards. D. I have the habit of bolting down my food, without really chewing it. When this happens I usually feel uncomfortably stuffed because I've eaten to much. Response Group 2: D Group 3 A. I feel capable to control my eating urges when I want to. B. I feel like I have failed to control my eating more than the average person. C. I feel utterly helpless when it comes to feeling in control of my eating urges. D. Because I feel so helpless about controlling my eating I have become very desperate about trying to get control. Response Group 3: B Group 4 A. I don't have the habit of eating when I'm bored. B. I sometimes eat when I'm bored, but often I'm able to get busy and get my mind off food. C. I have a regular habit of eating when I'm bored, but occasionally, I can use some other activity to get my mind off eating. D. I have a strong habit of eating when I'm bored. Nothing seems to help me breath the habit. Response Group 4: C Group 5 A. I'm usually physically hungry when I eat something. B. Occasionally, I eat something on impulse even though I really am not hungry. C. I have the regular habit of eating foods, that I might not really enjoy, to satisfy a hungry feeling even though physically, I don't need the food. D. Although I'm not physically hungry, I get a hungry feeling in my mouth that only seems to be satisfied when I eat a food, like sandwich, that fills my mouth. Sometimes, when I eat the food to satisfy my mouth hunger, I then spit the food out so I won't gain weight. Response Group 5: B Group 6 A. I don't feel any guilt or self-hate after I overeat. B. After I overeat, occasionally I feel guilt or self-hate. C. Almost all the time I experience strong guilt or self-hate after I overeat. Response Group 6: B Group 7 A. I don't lose total control of my eating when dieting even after periods when I overeat. B. Sometimes when I eat a forbidden food on a diet, I feel like I blew it and eat even more. C. Frequently, I have the habit of saying to myself, I've blown it now, why not go all the way, when I overeat on a diet. When that happens I eat more. D. I have a regular habit of starting a strict diets for myself but I break the diets by going on an eating binge. My life seems to be either a feast or famine. Response Group 7: B Group 8 A. I rarely eat so much food that I feel uncomfortably stuffed afterwards. B. Usually about once a month, I each such a quantity of food, I end up feeling very stuffed. C. I have regular periods during the month when I eat large amounts of food, either at mealtime or at snacks. D. I eat so much food that I regularly feel quite uncomfortable after eating and sometimes a bit nauseous. Response Group 8: C Group 9 A. My level of calorie intake does not go up very high or go down very low on a regular basis. B. Sometimes after I overeat, I will try to reduce my caloric intake to almost nothing to compensate for the excess calories I've eaten. C. I have a regular habit of overeating during the night. It seems that my routine is not to be hungry in the morning but overeat in the evening. D. In my adult years, I have had week-long periods where I practically starve myself. This follows periods when I overeat. It seems I live a life of either feast or famine. Response Group 9: B Group 10 A. I usually am able to stop eating when I want to. I know when enough is enough. B. Every so often, I experience a compulsion to eat which I can't seem to control. C. Frequently, I experience strong urges to eat which I seem unable to control, but at other times I can control my eating urges. D. I feel incapable of controlling urges to eat. I have a fear of not being able to stop eating voluntarily. Response Group 10: C Group 11 A. I don't have any problem stopping eating when I feel full. B. I usually can stop eating when I feel full but occasionally overeat leaving me feeling uncomfortably stuffed. C. I have a problem stopping eating once I start and usually I feel uncomfortably stuffed after I eat a meal. D. Because I have a problem not being able to stop eating when I want, I sometimes have to induce vomiting to relieve my stuffed feeling. Response Group 11: C Group 12 A. I seem to eat just as much when I'm with others, Family social gatherings as when I'm by myself. B. Sometimes, when I'm with other persons, I don't eat as much as I want to eat because I'm self-conscious about my eating. C. Frequently, I eat only a small amount of food when others are present, because I'm very embarrassed about my eating. D. I feel so ashamed about overeating that I pick times to overeat when I know no one will see me. I feel like a closet eater. Response Group 12: B Group 13 A. I eat three meals a day with only an occasional between meal snack. B. I eat 3 meals a day, but I also normally snack between meals. C. When I am snacking heavily, I get in the habit of skipping regular meals. D. There are regular periods when I seem to be continually eating, with no planned meals. Response Group 13: C Group 14 A. I don't think much about trying to control unwanted eating urges. B. At least some of the time, I feel my thoughts are pre-occupied with trying to control my eating urges. C. I feel that frequently I spend much time thinking about how much I ate or about trying not to eat anymore. D. It seems to me that most of my waking hours are pre-occupied by thoughts about eating or not eating. I feel like I'm constantly struggling not to eat. Response Group 14: C Group 15 A. I don't think about food a great deal. B. I have strong craving for food but they last only for brief periods of time. C. I have days when I can't seem to think about anything else but food. D. Most of my days seem to be pre-occupied with thoughts about food. I feel like I live to eat. Response Group 15: C Group 16 A. I usually know whether or not I'm physically hungry. I take the right portion of food to satisfy me. B. Occasionally, I feel uncertain about knowing whether or not I'm physically hungry. A these times it's hard to know how much food I should take to satisfy me. C. Even though I might know how many calories I should eat, I don't have any idea what is a normal amount of food for me. Response Group 16: B Binge Eating Score: 26 Score less than 17 Minimal Risk Score between 18-26 Moderate Risk Score between 27-46 High Risk Assessment & Plan Assessment & Plan (1) Adjustment disorder: Code(s): F43.20 - Adjustment disorder, unspecified Qualifiers: Adjustment disorder type: with mixed anxiety and depressed mood Qualified Code(s): F43.23 - Adjustment disorder with mixed anxiety and depressed mood (2) Pre-bariatric surgery psychological evaluation: Code(s): Z71.89 - Other specified counseling Plan The patient has been cleared from a behavioral health standpoint and can be submitted for insurance approval when ready. A follow-up behavioral health visit will be scheduled 1?4 weeks postoperatively to assess psychological adjustment and screen for any concerns. Next appointment: 1-4 Weeks Post-op. Telehealth Telehealth Telehealth Platform: [facility] Location of provider rendering services: practice address Location of patient: address on file Patient Identification confirmed using: Name, : Yes Telehealth method: video Patient verbally consented to treatment: Yes Patient verbally consented to billing insurance company: Yes Patient informed of any privacy concerns related to visit: Yes Minutes spent on Phone/Video with Pt.: 60 Coding Level of Care Code New Pt Tele Psy Diag Eval ([id number]) Patient Type New Diagnoses Adjustment disorder with mixed anxiety and depressed mood F43.23 Adjustment disorder type: with mixed anxiety and depressed mood Pre-bariatric surgery psychological evaluation Z71.89 Additional Codes PHQ-9 - 37705 - PHQ-9 Billing: Yes ([id number]) Time Spent (min) 60
--- OUTSIDE RECORDS SUMMARY | 2024-11-16 10:33 | XMS_ITS | Patient Health Record ---
Author Organization [facility] Address [address] [place] [address] Care Team Providers Care Business Risk Analyst Name Role Phone Mandy Morgan Primary Care Provider UnaMitchel Welch Unavailable [phone] Reason For Referral No Information Encounters Encounter Location Date Provider Diagnosis [facility] [address] [place] [address] 09/04/2024 Mitchel Campos Plan Of Treatment No Information Insurance Providers Payer Name Payer Address Payer Phone Subscriber Number Group Number Insured Name Patient Relationship to Insured Coverage Start Date Coverage End Date [facility] [address] [address] [place], [place] [id number] ED VIDAL Self - patient is the insured
== END 2024-11-16 11:30 | disposition home or self-care (01) ==
LOC: HO.HBST 10:13
PROVIDERS: Visit Provider Counselor Mental Health
DX: F43.23 Adjustment disorder with mixed anxiety and depressed mood (principal); Z71.89 Other specified counseling
CPT/HCPCS: 90791

== ENCOUNTER 2024-11-27 08:19 | Outpatient (AMB) | payer OTHER, SELFPAY ==
[2024-11-26 23:35] VITALS: BMI 37.1
--- NOTE | 2024-11-26 23:35 | A.OFFVIS_ITS ---
VS Expanded 11/26/24 23:35 Height 5 ft 1 in Weight 196 lb 8 oz BMI 37.1 Body Fat % 49.8 Body Fat Mass 98 Fat Free Mass 98.6 Visceral Fat Rating 19 Body Water % 34.3 Body Water Mass 67.5 Basal Metabolic Rate/Score 1,336 Intake Visit Reasons: TV Pre Op LSG 12/18/24 Allergies acetaminophen (Percocet) Adverse Reaction (Intermediate, Verified 11/26/24 23:44) nausea and vomiting oxycodone (Percocet) Adverse Reaction (Intermediate, Verified 11/26/24 23:44) nausea and vomiting Medication List - Last Reconciled 11/26/24 by Shayne Aquino MD bupropion HCl 100 mg PO BID cholecalciferol (vitamin D3) 125 mcg PO DAILY ondansetron 4 mg PO Q12H pantoprazole 40 mg PO DAILY polyethylene glycol 3350 (Miralax) 17 grams PO DAILY sucralfate 10 mL PO BID HPI HPI TV Pre Op LSG 12/18/24: Details: Start time: 12.30pm, End time: 1pm I spent 25 minutes speaking with the patient on the phone plus an additional 5 minutes reviewing and updating records for a total of 30 minutes HPI Comments Details: Overall weight loss: 21.2lbs, or 9.7% TBWL Is doing 2 Celebrate 4:1 shakes (1/2 scoop each in oat milk), 2 Celebrate protein bars and one meal (7 forks each) Exercise: Rowing machine for 300 calories daily PFSH Medical History (Updated 11/26/24 @ 23:49 by Shayne Aquino MD) Obesity Morbid obesity Crohn's colitis Osteoarthritis Surgical History History of colonoscopy Hx of ventral hernia repair History of tubal ligation Family History Father Hx of Parkinson's disease Family history of high blood pressure Mother Hx of chronic arthritis Hx of kidney disease Social History Housing: Apartment Alcohol intake: never Patient Tobacco Use Status: Former Tobacco user Tobacco use type: Cigarette Years Smoked: 18 e-Cigarette/Vaping Use: Never Used Second Hand Smoke Exposure: No service: No Current occupational status: employed 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 Cognitive needs: No Hearing needs: No Vision needs: Yes (Reading Glasses) Physical Exam Vital Signs: BMI result Body Mass Index 37.1 Telehealth Telehealth Telehealth Platform: Telephone Location of provider rendering services: practice address Location of patient: address on file Patient Identification confirmed using: Name, : Yes Telehealth method: voice only Patient verbally consented to treatment: Yes Patient verbally consented to billing insurance company: Yes Patient informed of any privacy concerns related to visit: Yes Minutes spent on Phone/Video with Pt.: 30 Assessment & Plan Assessment & Plan (1) Obesity: Code(s): E66.9 - Obesity, unspecified Category: Medical Qualifiers: Body mass index: BMI 37.0-37.9 Obesity classification: adult class 2 (BMI 35 - 39.9) Obesity type: due to excess calories Serious obesity comorbidity presence: with serious comorbidity Qualified Code(s): E66.812 - Obesity, class 2; E66.01 - Morbid (severe) obesity due to excess calories; Z68.37 - Body mass index [BMI] 37.0-37.9, adult Plan: 1. Plan for lap sleeve gastrectomy including upper GI endoscopy. All tests has been completed and reviewed and the patient is cleared for the surgery. If diaphragmatic or ventral hernias are present at time of surgery, these will be repaired laparoscopically as well. The surgery does not replace the need to change your lifestlyle which is the cause of the obesity problem. The surgery provides the motivation to try again to change your lifestyle, it reduces the appetite and make the transition to a better lifestyle easier and doubles the amount of weight you would lose compared to doing the lifestyle change without the surgery. You will need to be on a liquid diet with protein shakes for 2 weeks before surgery to maximize weight loss and boost your nutritional status to recover better from surgery and also for the first two weeks after surgery to let the stomach heal before we introduce other foods. After the first 2 weeks we will introduce protein bars and soft foods like scrambled eggs, cottage cheese and yogurt and after the 6th week will introduce meat, fish and cooked vegetables in small amounts. Over time you should be able to eat everything in small amounts. Side effects like nausea, vomiting, heartburn or abdominal pain are not common in the practice unless you are not following in the practice. This operation requires lifetime commitment to following in our practice and communication with me. You will much less weight and experience side effects if you don?t communicate or not following in the practice. Complications are rare and in our practice is about 1/10 of the national average. However, you can develop bleeding that may require transfusion (hasn?t happened for year in the practice), you may from complications (we did not have any deaths in the practice) and infections. Infections are usually a result of breakdown in communication or not understanding or following directions correctly. They are difficult to treat, they can happen during the first 6 weeks, they may require to be in the hospital for weeks or even months, not being able to eat by mouth and you may have drains and surgeries to try and correct the issue. Other risks and complications include possible conversion to an open procedure, leaks, small bowel obstruction, blood clots, cardiac, or pulmonary complications, as long distance billing operator complications such as ulcers, insufficient weight loss and vitamin deficiencies. So far she has proven to be an excellent communicator and very compliant with all our directions accomplishing a great weight loss. I believe that she is an excellent candidate and she is ready. 2. Preop prescriptions were provided and explained the purpose of each one. Need to be purchased preop. Start Pantoprazole now as you get it from the pharmacy, 1 pill per day. Sucralfate and Zofran are for after surgery as needed. 3. Bowel prep: please do 7 packets of Miralax mixing each one with a an 8oz glass of water, crystal light, gatorade zero, or propel on 12/16/24 and the same amount on 12/17/24. The Miralax you begin with one packet at a time in 8oz water or crystal light, gatorade zero, or propel as early in the day as you can and you do them back to back until you finish them. Continue the protein shakes during the bowel prep. 4. Needs to purchase 1oz medicine cups . 5. Needs to purchase Children's liquid Tylenol for postop pain control. 6. Avoid aspirin, motrin, Advil, Aleve, Ibuprofen, Naproxyn. Tylenol is OK. 7. She needs to purchase the Celebrate multivitamins from the hospital's gift shop. 8. Will do basic preop blood work-up any day between Tuesday12/10/24 and Tuesday12/14/24 fasting for 12 hours and is scheduled to see the Anesthesiologist prior to the day of surgery. 9. Importance of adherence to postop folllow-up and recommendations was underscored and she understands that. 10. Stop food and bars as of Tuesday12/10/24 and continue with 4 Celebrate protein shakes (ONE scoop EACH in 8oz oat milk) at 6am-8am, 9am-11am, 12pm-2pm and 3pm-5pm and one more Celebrate protein shake with ONE AND A HALF scoops in 8oz of almond milk at 6pm-8pm 11. No soups, broths or V8 12. The patient's medical history has been reviewed and they are considered low risk for post op DVT and therefore DVT prophylaxis is not considered necessary. Travel after surgery was reviewed. The patient has not disclosed any travel plans during the first 30 days after surgery and they have been advised that within the first 30 days after surgery any bus, plane, train or car travel over 2 hours in duration is contraindicated due to the possibility of developing blood clots from immobility. Any travel, needs to include periods of ambulation of 10 minutes in duration every 2 hours. Patient was instructed to discuss any plans for travel during this period with their bariatric surgeon. 12. Use your CPAP daily if you still have it and bring it to the hospital with your mask 13. Please take at the day of surgery the following medications: NONE 14. Stop any control pills and don't use them for one month after surgery 15. Absolutely no smoking or vaping, or marijuana until the surgery and for at least the first 4 weeks. Only nicotine patches are allowed. 16. Send me weight measurements on Tuesday11/28/24, Tuesday12/05/24, Tuesday12/12/24 and then on Tuesday12/18/24, the day of surgery before you go to the hospital. 17. Avoid any steroids by mouth for any reason. Let me know if someone prescribes them to you 18. These instructions supersede anything else you read in the handbook, anything you watched in videos or classes or you were told by any other provider. If there is any conflict, you follow the above instructions and nothing else. Orders: Orders Comprehensive Met. Panel 11/26/24 E66.9 - Obesity, unspecified, E78.00 - Pure hypercholesterolemia, unspecified TSH reflex Free T4 11/26/24 E66.9 - Obesity, unspecified, E78.00 - Pure hypercholesterolemia, unspecified Prothrombin Time INR 11/26/24 E66.9 - Obesity, unspecified, E78.00 - Pure hypercholesterolemia, unspecified Type and Screen 11/26/24 E66.9 - Obesity, unspecified, E78.00 - Pure hypercholesterolemia, unspecified C Reactive Protein 11/26/24 E66.9 - Obesity, unspecified, E78.00 - Pure hypercholesterolemia, unspecified Complete Blood Count Auto Diff 11/26/24 E66.9 - Obesity, unspecified, E78.00 - Pure hypercholesterolemia, unspecified Hemoglobin A1c 11/26/24 E66.9 - Obesity, unspecified, E78.00 - Pure hypercholesterolemia, unspecified Lipid Panel 11/26/24 E66.9 - Obesity, unspecified, E78.00 - Pure hypercholesterolemia, unspecified Partial Thromboplastin Time 11/26/24 E66.9 - Obesity, unspecified, E78.00 - Pure hypercholesterolemia, unspecified Insulin 11/26/24 E66.9 - Obesity, unspecified, E78.00 - Pure hypercholesterolemia, unspecified Medications: New pantoprazole 40 mg PO DAILY 90 tabs 0RF K21.9 - Gastro-esophageal reflux disease without esophagitis sucralfate 10 mL PO BID 600 mL 2RF K21.9 - Gastro-esophageal reflux disease without esophagitis ondansetron Only take one every 12 hours as needed if you have nausea 4 mg PO Q12H 20 tabs 0RF nausea and vomiting R11.0 - Nausea polyethylene glycol 3350 (Miralax) Mix each measuring cup with 8oz of water, Crystal light, or Gatorade zero, or Propel and do 7 measuring cups on 12/16/24 and another 7 measuring cups on 12/17/24 17 grams PO DAILY 14 ea 0RF Z01.818 - Encounter for other preprocedural examination
--- OUTSIDE RECORDS SUMMARY | 2024-11-27 08:28 | XMS_ITS | Patient Health Record ---
Author Organization [facility] Address [address] [place] [address] Care Team Providers Care Vp Informatics Name Role Phone Mandy Morgan Primary Care Provider UnaMitchel Welch Unavailable [phone] Reason For Referral No Information Encounters Encounter Location Date Provider Diagnosis [facility] [address] [place] [address] 09/04/2024 Mitchel Campos Plan Of Treatment No Information Insurance Providers Payer Name Payer Address Payer Phone Subscriber Number Group Number Insured Name Patient Relationship to Insured Coverage Start Date Coverage End Date [facility] [address] [address] [place], [place] [id number] ED VIDAL Self - patient is the insured
== END 2024-11-27 15:06 | disposition home or self-care (01) ==
LOC: HO.HBS 08:19
PROVIDERS: Visit Provider Surgery
DX: E66.812 Obesity, class 2 (principal); E66.01 Morbid (severe) obesity due to excess calories; Z68.37 Body mass index [BMI] 37.0-37.9, adult
CPT/HCPCS: 99214

== ENCOUNTER 2024-12-03 08:14 | Outpatient (REF) | payer OTHER, SELFPAY ==
--- NOTE | ~2024-12-03 | FL_ITS ---
EXAMINATION: XR FLUOROSCOPY UPPER GI WITH AIR CLINICAL INFORMATION: Moderate to severe obesity due to excess calories COMPARISON: None available. TECHNIQUE: Routine upper GI air contrast study was performed in upright and lying position. FINDINGS: Following oral administration of thick barium and effervescent granules in upright view there is normal propagation of bolus from the oral cavity through the pharynx, esophagus into stomach without obstruction, narrowing or stricture. No extrinsic compression seen. On placing patient supine and prone lying the course, caliber and peristalsis stomach, duodenal bulb and sweep is normal. The mucosal pattern of the stomach and duodenal bulb is normal. There is mild gastroesophageal reflux into upper/mid esophagus. FLUOROSCOPY TIME: 2 minute 17 seconds DOSE AREA PRODUCT: 2576 uGy-m2 (microgray-meter squared) FL/FL upper GI w air IMPRESSION: Moderate gastroesophageal reflux without hiatal hernia. Rest of the upper GI air contrast study is unremarkable. Electronically signed by: Nasim Naranjo MD 12/03/2024 12:55 PM EDT
--- OUTSIDE RECORDS SUMMARY | 2024-12-03 08:21 | XMS_ITS | Patient Health Record ---
Author Organization [facility] Address [address] [place] [address] Care Team Providers Care Nurses Superintendent Name Role Phone Mandy Morgan Primary Care Provider UnaMitchel Welch Unavailable [phone] Reason For Referral No Information Encounters Encounter Location Date Provider Diagnosis [facility] [address] [place] [address] 09/04/2024 Mitchel Campos Plan Of Treatment No Information Insurance Providers Payer Name Payer Address Payer Phone Subscriber Number Group Number Insured Name Patient Relationship to Insured Coverage Start Date Coverage End Date [facility] [address] [address] [place], [place] [id number] ED VIDAL Self - patient is the insured
== END 2024-12-03 08:15 | disposition home or self-care (01) ==
LOC: HO.XRAY 08:14
PROVIDERS: Visit Provider Surgery
DX: E66.01 Morbid (severe) obesity due to excess calories (principal)
CPT/HCPCS: 74246

== ENCOUNTER → 2024-12-03 08:15 | Outpatient (BNV) | payer OTHER, SELFPAY | PROVIDERS: Visit Provider Radiology Diagnostic Radiology | DX: K21.9 Gastro-esophageal reflux disease without esophagitis (principal) | CPT/HCPCS: 74246 ==

== ENCOUNTER 2024-12-05 08:22 | Outpatient (AMB) | payer OTHER, SELFPAY ==
--- OUTSIDE RECORDS SUMMARY | 2024-12-05 08:28 | XMS_ITS | Patient Health Record ---
Author Organization [facility] Address [address] [place] [address] Care Team Providers Care Home Care Giver Name Role Phone Mandy Morgan Primary Care Provider UnaMitchel Welch Unavailable [phone] Reason For Referral No Information Encounters Encounter Location Date Provider Diagnosis [facility] [address] [place] [address] 09/04/2024 Mitchel Campos Plan Of Treatment No Information Insurance Providers Payer Name Payer Address Payer Phone Subscriber Number Group Number Insured Name Patient Relationship to Insured Coverage Start Date Coverage End Date [facility] [address] [address] [place], [place] [id number] ED VIDAL Self - patient is the insured
--- NOTE | 2024-12-05 08:38 | MHC.PC.OV ---
Vital Signs 12/05/24 08:40 Height 5 ft 1 in Weight 190 lb BMI 35.9 BP 120/66 Blood Pressure Location Lt brachial Position Sitting Pulse 74 Pulse Source Pulse Oximeter Pulse Oximetry (%) 97 Oxygen Delivery Method Room Air Intake Visit Reasons: 3 month f/u Hand Booked Folder And Stitcher Required: No Accompanied by: Self / Same As Patient Allergies acetaminophen (Percocet) Adverse Reaction (Intermediate, Verified 12/05/24 08:42) nausea and vomiting oxycodone (Percocet) Adverse Reaction (Intermediate, Verified 12/05/24 08:42) nausea and vomiting Medication List - Last Reconciled 12/05/24 by Mandy Trinh PA-C bupropion HCl 100 mg PO BID cholecalciferol (vitamin D3) 125 mcg PO DAILY ondansetron 4 mg PO Q12H pantoprazole 40 mg PO DAILY polyethylene glycol 3350 (Miralax) 17 grams PO DAILY sucralfate 10 mL PO BID Tobacco use date assessed: 12/05/24 Dental Screening Dental Screen Date: 12/05/24 Did you have a dental visit in the last 12 months?: No Did you have a dental problem in the last 6 months where you did not have access to dental care?: No Was dental information given to patient?: No HPI 3 month f/u HPI Details 53-year-old female with past medical history of Crohn's colitis, ventral hernia, morbid obesity, hypercholesterolemia, vitamin-D deficiency and adjustment disorder last seen 08/2024 coming in for follow up.?In review of the notes, patient was seen by weight management clinic 10/2024 undergoing workup for laparoscopic sleeve gastrectomy. The patient has successfully lost 31 pounds with the help of Dr. Patel through diet and exercise, including a laparoscopic sleeve gastrectomy. Further surgery is planned, potentially addressing a hernia. The patient's hemoglobin A1c has decreased from 6.6 to 6.3 due to weight loss and dietary changes, maintaining her in the prediabetic range. The patient's cholesterol levels have increased from 112 to 133, prompting dietary adjustments to manage this condition. Mild reflux was identified via a barium swallow test, with no current symptoms reported by the patient. Wellbutrin has been effective in managing the patient's symptoms without any adverse effects. [facility] Medical History (Updated 12/05/24 @ 09:15 by Mandy Trinh PA-C) Obesity Morbid obesity Crohn's colitis Osteoarthritis Surgical History History of colonoscopy Hx of ventral hernia repair History of tubal ligation Family History Father Hx of Parkinson's disease Family history of high blood pressure Mother Hx of chronic arthritis Hx of kidney disease Social History Housing: Apartment Alcohol intake: never Patient Tobacco Use Status: Former Tobacco user Tobacco use type: Cigarette Years Smoked: 18 e-Cigarette/Vaping Use: Never Used Second Hand Smoke Exposure: No service: No Current occupational status: employed Current occupation: [employer] Cognitive needs: No Hearing needs: No Vision needs: Yes (Reading Glasses) Questionnaire Thrive Questionnaire Date Thrive assessed: 12/05/24 I am a: Parent/Caregiver What is your living situation today?: I have a steady place to live Within the past 12 months, did the food you bought not last and you didn't have the money to get more?: Never true Within the past 12 months, did you worry whether your food would run out before you got money to buy more?: Never true Do you have trouble paying for medicines?: No Do you have trouble getting transportation to medical appointments?: No Do you have trouble paying your heating and electricity bill?: No Do you have trouble taking care of your child, family member or friend?: No Do you have trouble with day-to-day activities such as bathing, preparing meals, shopping, managing finances, etc.?: No Are you currently unemployed and looking for a job?: No Are you interested in more education?: No Please select the resources that you would like help with: None Currently or been in a relationship where the following occur: No concerns reported THRIVE Score: 0 AUDIT C Alcohol Use Questionnaire (AUDIT-C) 3. How often do you have six or more drinks on one occasion?: Never Total Score: 0 SURINDER-7 AMB Questionnaire SURINDER-7 Date SURINDER - 7 assessed: 12/05/24 Source: Developed by Drs. Mitchel Maldonado, Lory Martinez, John Collins and colleagues, with an educational ame from [employer]. Review of Systems Const Denies body aches, Denies chills, Denies fever(s), Denies headache(s) and Denies poor appetite Eyes Reports no additional complaints ENT Denies dysphagia, Denies dizziness, Denies headache(s) and Denies odynophagia Card Denies chest pain, Denies syncope, Denies edema, Denies irregular heart rhythm, Denies lightheadedness and Denies dyspnea Resp Denies dyspnea GI Denies abdominal pain, Denies constipation, Denies dysphagia, Denies diarrhea, Denies nausea, Denies odynophagia and Denies vomiting Reports no additional complaints Musc Reports no additional complaints and Denies abnormal gait Skin/Breast Reports system reviewed and no additional complaints, except as documented Neuro Denies abnormal gait, Denies dizziness, Denies syncope and Denies headache(s) Psych Reports no additional complaints Physical exam (Primary Care) Vital Signs: Last Vital Signs Pulse 74 12/05/24 08:40 BP 120/66 12/05/24 08:40 Pulse Ox 97 12/05/24 08:40 Oxygen Delivery Method Room Air 12/05/24 08:40 BMI result Body Mass Index 35.9 Tobacco/Smoking Status: Tobacco use Status Tobacco use date assessed 12/05/24 12/05/24 08:40 Patient Tobacco Use Status Former Tobacco user 12/05/24 08:40 Tobacco use type Cigarette 12/05/24 08:40 e-Cigarette/Vaping Use Never Used 12/05/24 08:40 Thrive Assessment: Date of Thrive Assessment Date Thrive assessed 12/05/24 12/05/24 08:40 Currently or been in a relationship where the following occur: No concerns reported Const General: cooperative, healthy appearing, comfortable and no acute distress Orientation/consciousness: patient oriented x3 [facility] Head: Yes normocephalic Ears: hearing grossly normal bilaterally General nose exam: Normal external nose present Eyes General: appearance normal, both eyes and all related structures Conjunctivae: conjunctivae normal Neck Neck: Yes full ROM and Yes no lymphadenopathy Resp Effort & Inspection: normal respiratory effort Auscultation: clear to auscultation bilaterally, no crackles, no rales, no rhonchi and no wheezes Cardio Rate: regular rate Rhythm: regular rhythm Skin General skin exam: no rashes or lesions noted Neuro General: patient oriented x3 Gait exam (Neuro): Normal gait present Extrem General: Yes normal to inspection, Yes full ROM and No edema Psych Affect: normal affect Attitude: cooperative Insight: Good insight present (Psych) Judgement: Good judgement present (Psych) Coding Level of Care Code Est Pt Level 3 (14108) Diagnoses Crohn's disease of colon without complication K50.10 Digestive disease complication type: without complication Ventral hernia K43.9 Morbid obesity with BMI of 40.0-44.9, adult E66.01; Z68.41 Depression F32.A Prediabetes R73.03 Hypercholesterolemia E78.00 Assessment & Plan Assessment & Plan (1) Crohn's colitis: Code(s): K50.10 - Crohn's disease of large intestine without complications Category: Medical Qualifiers: Digestive disease complication type: without complication Qualified Code(s): K50.10 - Crohn's disease of large intestine without complications Plan: Patient has had a colonoscopy [address] Lentz and is due this year. She will r/s with Dr. Lentz as she did miss her last visit. (2) Ventral hernia: Comment: Repair 2019 Code(s): K43.9 - Ventral hernia without obstruction or gangrene Category: Medical Plan: She does feel a bulge in the right lower quadrant of the abdomen similar to her previous hernia sensation. This is being addressed by Dr. Aquino and will be corrected during lap procedure. (3) Morbid obesity with BMI of 40.0-44.9, adult: Code(s): E66.01 - Morbid (severe) obesity due to excess calories; Z68.41 - Body mass index [BMI] 40.0-44.9, adult Category: Medical Plan: Healthy diet and regular exercise is encouraged. She is currently follow with weight management clinic and is scheduled for lap sleeve gastrectomy 12/18/2024. Noted 31lb weight loss since last visit. (4) Depression: Code(s): F32.A - Depression, unspecified Category: Medical Plan: Patient was started on Wellbutrin 100mg BID at last visit and feels as though this has been helpful for her racing thoughts and anxiety. She is happy on the current dose and denies any side effects at this time. (5) Prediabetes: Code(s): R73.03 - Prediabetes Category: Medical Plan: Decrease the amount of carbohydrates such as pasta, bread, rice, and potatoes and limit the amount of sweets. Although fruits are generally healthy they should be eaten in moderation as they are still high in sugar. Hemoglobin A1c goal of less of 7%. Last A1c 6.3% (6) Hypercholesterolemia: Code(s): E78.00 - Pure hypercholesterolemia, unspecified Category: Medical Plan: Avoid foods that are high in cholesterol such as red meat, fried foods, eggs and baked goods. Triglyceride goal of less than 150 and LDL goal of less than 130. Plan The patient will maintain her weight management efforts with Dr. Aquino, focusing on sustaining her weight loss and preparing for potential hernia repair surgery. Dietary changes will be prioritized to address prediabetes and hypercholesterolemia, specifically by reducing red meat and fried food consumption. Monitoring for gastroesophageal reflux disease symptoms will continue, with measures to protect the esophagus from acid damage. The patient will continue Wellbutrin for anxiety and depression, as it has been effective without adverse effects. This note was constructed using voice recognition software. While every effort has been made to ensure accuracy and specimen collector, still areas may have been included sometimes these areas may affect the content or meeting of the given symptoms. Total time spent caring for the patient today was 20 minutes. This includes time spent before the visit reviewing the chart, time spent during the visit, and time spent after the visit and documentation. Patient was informed and verbally consented to the use of an ambient scribe for clinic note documentation during this visit.
[2024-12-05 08:40] VITALS: BP 120/66; PULSE 74; O2SAT 97; BMI 35.9
== END 2024-12-05 09:58 | disposition home or self-care (01) ==
LOC: HO.HMCH 08:23
DX: K50.10 Crohn's disease of large intestine without complications (principal); K43.9 Ventral hernia without obstruction or gangrene; E66.01 Morbid (severe) obesity due to excess calories; Z68.41 Body mass index [BMI] 40.0-44.9, adult; F32.A Depression, unspecified; R73.03 Prediabetes; E78.00 Pure hypercholesterolemia, unspecified

== ENCOUNTER → 2024-12-05 08:22 | Outpatient (BNVA) | payer OTHER, SELFPAY | DX: E66.01 Morbid (severe) obesity due to excess calories (principal); E78.00 Pure hypercholesterolemia, unspecified; E55.9 Vitamin D deficiency, unspecified; K50.10 Crohn's disease of large intestine without complications; K43.9 Ventral hernia without obstruction or gangrene; F32.A Depression, unspecified; R73.03 Prediabetes; Z68.35 Body mass index [BMI] 35.0-35.9, adult | CPT/HCPCS: 99212 ==

== ENCOUNTER 2024-12-12 08:24 | Outpatient (REF) | payer OTHER, SELFPAY ==
--- NOTE | ~2024-12-12 | US_ITS ---
EXAMINATION: US ABDOMEN COMPLETE WITH LIVER ELASTOGRAPHY HISTORY: E66.01 - Morbid (severe) obesity due to excess calories TECHNIQUE: Real-time grayscale ultrasound imaging of the abdomen was performed and images were reviewed. COMPARISON: Correlation is made with a CT of the abdomen with contrast dated 10/23/2023. FINDINGS: Liver: The right lobe of the liver measures 15.3 cm in size. The left lobe of the liver measures 6.7 cm in size. The liver demonstrates increased echotexture, consistent with steatosis. No focal mass or intrahepatic biliary ductal dilatation is identified. There is normal hepatopedal flow in the portal vein. Ultrasound elastography of the liver was performed with 10 separate measurements of the liver parenchyma with the patient in the supine position. Measurements were obtained approximately 2 cm below Dunia's capsule and perpendicular to the capsule. The median shear wave velocity is 1.57 m/s. The interquartile range/median (IQR/median) is 0.15. Gallbladder and biliary tree: There are multiple calculi in the gallbladder as well as echogenic bile. There is no wall thickening or pericholecystic fluid. There is no sonographic Aldrich sign. The common bile duct is normal in caliber measuring 3 mm. Kidneys: The right kidney measures 10.7 cm in length. The left kidney measures 10.2 cm in length. There is a 10 mm cyst in the interpolar region of the right kidney. A tiny nonspecific 3 mm echogenic focus is noted in the midportion. The left kidney is unremarkable. Pancreas: The pancreatic head, neck, and body are unremarkable. The pancreatic tail is obscured by bowel gas. Spleen: The spleen is normal in size and contour, measuring 12.6 cm in length. Abdominal aorta and inferior vena cava: The visualized portions of the abdominal aorta and inferior vena cava are normal in caliber. There is no free fluid in the abdomen. US/US abdomen comp w elastography IMPRESSION: Hepatic steatosis. Cholelithiasis. The median shear wave velocity in the liver is 1.57 m/s, corresponding to a median liver stiffness of 7.45 kPa. The IQR/median value is 0.15. This is indicative of a quality data set. Findings are indicative of a low elastography value which rules out advanced chronic liver disease in asymptomatic patients. REFERENCE: Society of Radiologists in Ultrasound Liver Stiffness Thresholds (2020): LIVER STIFFNESS THRESHOLDS: *Shear wave velocity less than 1.3 m/s (Liver Stiffness equal or less than 5 kPa): High probability of being normal. *Shear wave velocity less than 1.7 m/s (Liver Stiffness less than 9 kPa): In the absence of other known clinical signs, rules out compensated advanced chronic liver disease. *Shear wave velocity between 1.7-2.1 m/s (Liver Stiffness 9-13 kPa): Suggestive of compensated advanced chronic liver disease but need further test for confirmation. *Shear wave velocity between 2.1-2.4 m/s (Liver Stiffness 13-17 kPa): Rules in compensated advanced chronic liver disease. *Shear wave velocity greater than 2.4 m/s (Liver Stiffness over 17 kPa): Suggestive of clinically significant portal hypertension. QUALITY OF DATA SET: *IQR/Median value equal or less than 0.15 implies a quality data set. *IQR/Median value over 0.15 implies a poor quality data set. SIGNIFICANT CHANGE FROM PRIOR EXAM: Significant change if liver stiffness measurement is 10% or greater from prior exam. OTHER CONSIDERATIONS: The stage of liver fibrosis may be overestimated in the setting of acute hepatitis, liver inflammation, elevated liver function tests, hepatic vascular congestion, obstructive cholestasis, non-fasting state, and infiltrative diseases such as amyloidosis and lymphoma. In some patients with NAFLD, the liver stiffness thresholds for compensated advanced chronic liver disease may be lower. In causes other than viral hepatitis and NAFLD, liver stiffness thresholds are not well established. Electronically signed by: Mitchel Winchester MD 12/12/2024 09:25 AM EDT
--- OUTSIDE RECORDS SUMMARY | 2024-12-12 08:34 | XMS_ITS | Patient Health Record ---
Author Organization [facility] Address [address] [place] [address] Care Team Providers Care Tool And Die Assembler Name Role Phone Mandy Morgan Primary Care Provider UnaMitchel Welch Unavailable [phone] Reason For Referral No Information Encounters Encounter Location Date Provider Diagnosis [facility] [address] [place] [address] 09/04/2024 Mitchel Campos Plan Of Treatment No Information Insurance Providers Payer Name Payer Address Payer Phone Subscriber Number Group Number Insured Name Patient Relationship to Insured Coverage Start Date Coverage End Date [facility] [address] [address] [place], [place] [id number] ED VIDAL Self - patient is the insured
[2024-12-12 09:36] LABS: MANUAL DIFF FLAG NO
[2024-12-12 09:46] LABS: Hematocrit 42.7 % (37.0-47.0); Hemoglobin 14.5 g/dl (12.0-16.0); Imm Gran Abs Auto 0.01 X10*3/uL (0.00-0.03); Imm Gran Pct Auto 0.2 % (0.0-0.4); Lymphocytes Absolute Auto 1.0 X10*3/uL (1.2-4.9); Mean Corpuscular HGB Conc 34.0 g/dl (31.0-35.0); Mean Corpuscular Hemoglobin 28.8 pg (27.0-33.0); Mean Corpuscular Volume 84.9 fL (80.0-98.0); NRBC Abs Auto 0.000 X10*3/uL (0.0-0.012); NRBC Pct Auto 0.0 /100WBC (0.0-0.2); Platelet Count 171 X10*3/uL (160-400); Red Blood Count 5.03 X10*6/uL (4.20-5.50); White Blood Count 4.9 X10*3/uL (4.8-10.8)
[2024-12-12 09:53] LABS: INTERNATIONAL NORM RATIO 1.1 (0.9-1.1); Prothrombin Time 12.6 SEC (10.9-12.4)
[2024-12-12 09:55] LABS: Partial Thromboplastin Time 31.8 SEC (26.7-34.1)
[2024-12-12 10:42] LABS: Alanine Aminotransferase 54 U/L (0-31); Albumin Level 4.3 g/dL (3.5-5.0); Alkaline Phosphatase 59 U/L (39-117); Anion Gap 11 (12-20); Aspartate Amino Transferase 33 U/L (5-31); Blood Urea Nitrogen 14 mg/dL (9-16); Calcium 9.4 mg/dL (8.4-10.2); Carbon Dioxide 31 mmol/L (22-29); Chloride 105 mmol/L (96-108); Cholesterol 164 mg/dL (<200); Estimated Glomerular Filt Rate > 60; HDL Cholesterol 36 mg/dL (>40); Potassium 4.3 mmol/L (3.3-5.1); Sodium 143 mmol/L (135-145); Total Protein 6.6 g/dL (6.5-8.0); Triglycerides 89 mg/dL (<150)
[2024-12-12 11:25] LABS: Hemoglobin A1C 171.0808 umol/L; Total Hemoglobin (HGBA1C) 4474.3131 umol/L
== END 2024-12-12 08:25 | disposition home or self-care (01) ==
LOC: HO.US 08:24
PROVIDERS: Visit Provider Surgery
DX: E66.01 Morbid (severe) obesity due to excess calories (principal); E78.00 Pure hypercholesterolemia, unspecified
CPT/HCPCS: 36415; 76700; 76981; 80053; 80061; 83036; 83525; 84443; 85025; 85610; 85730; 86140

== ENCOUNTER → 2024-12-12 08:28 | Outpatient (BNV) | payer OTHER, SELFPAY | PROVIDERS: Visit Provider Radiology Diagnostic Radiology | DX: K80.20 Calculus of gallbladder without cholecystitis without obstruction (principal); K76.0 Fatty (change of) liver, not elsewhere classified | CPT/HCPCS: 76700 ==

== ENCOUNTER 2024-12-18 11:25 | Inpatient (IN) | payer OTHER, SELFPAY ==
[2024-12-10 10:31] VITALS: BMI 35.3
[2024-12-18] VITALS (13 sets, daily range): BP systolic 112–151; BP diastolic 58–85; PULSE 56–87; RESP 16–20; TEMP 36–36.8; O2SAT 93–100; BMI 33.9
[2024-12-18] MEDS: Lactated Ringers 1,000 ML 999 ML IV (11:38)
[2024-12-18] MEDS: Lactated Ringers 1,000 ML 100 ML IVCONT ×2 (11:38→16:40)
[2024-12-18] MEDS: Aprepitant 32 MG/4.4 ML VIAL IVPUSH (11:38)
--- NOTE | 2024-12-18 11:44 | MHC.SHP ---
Pre-Procedural Eval Section A - 24 Hr Update-Section A only Date of Service: 12/18/24 The patient is an INPATIENT: Yes The patient has been examined within 24 hours of the surgical procedure. The History & Physical has been completed within 30 days and I have reviewed it.: Yes Section B - Complete if H&P > 30 days Chief Complaint: Obesity Relevant Family History (Specify if Yes): No Relevant Social History: None Present Medications: None Medical History: No relevant PMH History of Previous Operations: No relevant previous surgery Allergies: Allergies Allergy/AdvReac Type Severity Reaction Status Date / Time acetaminophen (Percocet) AdvReac Intermediate nausea and Verified 12/18/24 11:32 vomiting oxycodone (Percocet) AdvReac Intermediate nausea and Verified 12/18/24 11:32 vomiting Review of Systems Sugical H&P ROS: Negative: Constitution, Cardiovascular, Respiratory, Neurological, Psychiatric, Hem-Onc, Allergic/Immunologic, Gastrointestinal, Genitourinary, Musculoskeletal, Integumentary, Endocrine and Eyes/Ears/Nose/Throat Exam Surgical H&P Exam: Normal: HEENT, Normal: Heart, Normal: Lungs, Normal: Extremities, Normal: Abdomen, Normal: Skin and Normal: Neurological Plan Diagnosis/Plan: Unchanged I have reviewed the history and physical and performed a pertinent physical examination on my patient. No changes have occurred unless specified. Time Spent With Patient Time: Total time managing care of this patient today ____ minutes.
--- NOTE | 2024-12-18 11:58 | HO.ANESPROP2 ---
Documented by User: No Frey NP 12/17/24 12:04 HPI - Anesthesia Eval Consult details Narrative: 54 yr old female for Gastrectomy Sleeve,EGD,possible Diaphragmatic Hernia,possible Ventral Hernia,possible Open Prediabetes: hemoglobin A1c has decreased from 6.6 to 6.3 Crohn's colitis: follows with Dr. Lentz for routine colonoscopy [facility] Active Problems Active Problems: All Active Problems Prediabetes (Acute) Adjustment disorder (Acute) Vitamin D deficiency (Acute) Hypercholesterolemia (Acute) Diabetes mellitus (Acute) Abdominal wall bulge (Acute) Depression (Acute) Morbid obesity with BMI of 40.0-44.9, adult (Acute) Diverticulosis (Acute) Ventral hernia (Acute) Obesity (Acute) Morbid obesity (Acute) Crohn's colitis (Acute) Past Medical History Medical History Sleep apnea Obesity Morbid obesity Crohn's colitis Osteoarthritis Family History Family History Father Hx of Parkinson's disease Family history of high blood pressure Mother Hx of chronic arthritis Hx of kidney disease Family history of problems with anesthesia: No Surgical History Surgical History History of esophagogastroduodenoscopy (EGD) History of colonoscopy Hx of ventral hernia repair History of tubal ligation History of Problems with Anesthesia: No Social History Social History Housing: Apartment Are you a primary infant childcare provider to a significant other at home: No Do you presently have visiting nurse or other home services: No Alcohol intake: never Patient Tobacco Use Status: Former Tobacco user Tobacco use type: Cigarette Years Smoked: 18 e-Cigarette/Vaping Use: Never Used Second Hand Smoke Exposure: No Use of substances other than those prescribed or required for medical reasons: No Have you been hit, kicked, punched, or otherwise hurt by someone within the past year? 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 Cognitive needs: No Hearing needs: No Vision needs: Yes (Reading Glasses) Meds Allergies Allergy/AdvReac Type Severity Reaction Status Date / Time acetaminophen (Percocet) AdvReac Intermediate nausea and Verified 12/18/24 11:32 vomiting oxycodone (Percocet) AdvReac Intermediate nausea and Verified 12/18/24 11:32 vomiting Exam Height,Weight and Vital Signs: Height 5 ft 1 in Weight 84.822 kg Pertinent Lab Results Pertinent Lab Results: Laboratory Tests Laboratory Tests 12/12/24 09:34 WBC 4.9 RBC 5.03 Hgb 14.5 Hct 42.7 Plt Count 171 D Sodium 143 Potassium 4.3 BUN 14 Creatinine 0.76 12/12/24 10:48 Blood Type A Positive Antibody Screen NEGATIVE Narrative Narrative: EKG 10/29/24 Vent. Rate : 72 BPM Atrial Rate : 72 BPM P-R Int : 130 ms QRS Dur : 80 ms QT Int : 388 ms P-R-T Axes : 38 5 14 degrees QTcB Int : 424 ms Sinus rhythm with marked sinus arrhythmia Otherwise normal ECG No previous ECGs available Assessment and Plan Final Anesthetic Review Family History of Problems with Anesthesia: No History of Problems with Anesthesia: No Documented by User: Shabana Kendrick DO 12/18/24 12:00 [facility] Past Medical History Medical History Sleep apnea Obesity Morbid obesity Crohn's colitis Osteoarthritis Family History Family History Father Hx of Parkinson's disease Family history of high blood pressure Mother Hx of chronic arthritis Hx of kidney disease Family history of problems with anesthesia: No Surgical History Surgical History History of esophagogastroduodenoscopy (EGD) History of colonoscopy Hx of ventral hernia repair History of tubal ligation History of Problems with Anesthesia: No Social History Social History (Reviewed 12/05/24 @ 08:39 by ODESSA Fischer Housing: Apartment Are you a primary infant childcare provider to a significant other at home: No Do you presently have visiting nurse or other home services: No Alcohol intake: never Patient Tobacco Use Status: Former Tobacco user Tobacco use type: Cigarette Years Smoked: 18 e-Cigarette/Vaping Use: Never Used Second Hand Smoke Exposure: No Use of substances other than those prescribed or required for medical reasons: No Have you been hit, kicked, punched, or otherwise hurt by someone within the past year? 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 Cognitive needs: No Hearing needs: No Vision needs: Yes (Reading Glasses) Meds Allergies Allergy/AdvReac Type Severity Reaction Status Date / Time acetaminophen (Percocet) AdvReac Intermediate nausea and Verified 12/18/24 11:32 vomiting oxycodone (Percocet) AdvReac Intermediate nausea and Verified 12/18/24 11:32 vomiting Exam Exam Date and Time: 12/18/24 1158 Height,Weight and Vital Signs: Height 5 ft 1 in Weight 84.822 kg Vital Signs Temperature 98.2 F 12/18/24 11:28 Pulse Rate 73 12/18/24 11:28 Respiratory Rate 18 12/18/24 11:28 Blood Pressure 134/67 12/18/24 11:28 Pulse Oximetry 96 12/18/24 11:28 Oxygen Delivery Method Room Air 12/18/24 11:28 Temperature 98.2 F 12/18/24 11:28 Pulse Rate 73 12/18/24 11:28 Respiratory Rate 18 12/18/24 11:28 Blood Pressure 134/67 12/18/24 11:28 Pulse Oximetry 96 12/18/24 11:28 Oxygen Delivery Method Room Air 12/18/24 11:28 Airway Mallampati Class: II TM Dist: >3cm Neck ROM: Full Denture: Upper Loose/Missing/Broken Teeth: Yes (missing molars but no loose or broken teeth on lower jaw) Heart: S1S2 Lungs: CTAB Assessment and Plan Assessment Anesthesia Assessment: Anesthesia Plan Discussed and Chart Reviewed Final Anesthetic Review Family History of Problems with Anesthesia: No History of Problems with Anesthesia: No NPO: Yes ASA Class: II Final Preanesthetic Review: No Changes in Pt Med Stat, Meds/Allgs Chart Reviewed, Consent Obtained/Reviewed and Anes Risks/Benef Reviewed Patient Risk: Low Procedure Risk: Intermediate Anesthetic Plan Anesthetic Plan: GA and Agree w/ Assess. and Plan Disposition: Standard PACU
--- OUTSIDE RECORDS SUMMARY | 2024-12-18 12:59 | XMS_ITS | Patient Health Record ---
Author Organization [facility] Address [address] [place] [address] Care Team Providers Care Transportation Mechanic Name Role Phone Mandy Morgan Primary Care Provider UnaMitchel Welch Unavailable [phone] Reason For Referral No Information Encounters Encounter Location Date Provider Diagnosis [facility] [address] [place] [address] 09/04/2024 Mitchel Campos Plan Of Treatment No Information Insurance Providers Payer Name Payer Address Payer Phone Subscriber Number Group Number Insured Name Patient Relationship to Insured Coverage Start Date Coverage End Date [facility] [address] [address] [place], [place] [id number] ED VIDAL Self - patient is the insured
--- NOTE | 2024-12-18 13:07 | PHA.MEDREC ---
Addendum entered by Patric Oneill RPh 12/18/24 13:22: MED REC REVIEWED BY [facility] Original Note: Pharmacy Consult ? Medication Reconciliation Pharmacy has reviewed the medication reconciliation done by nursing. claims match med list.
--- NOTE | 2024-12-18 14:48 | P.DS_ITS ---
DS: Providers Provider Date of Service: 12/19/24 Date of admission: 12/18/24 11:25 Date of discharge: 12/19/24 Primary care physician: Mandy Trinh PA-C DS: Summary Hospital Course Hospital Course: ADMITTING DIAGNOSIS: obesity, diabetes, HLD, depression, Crohn's colitis DISCHARGE DIAGNOSIS: same, s/p laparoscopic sleeve gastrectomy and gastropexy with diaphragmatic hernia repair PAST SURGICAL HISTORY:? History of colonoscopy Hx of ventral hernia repair History of tubal ligation PROCEDURE: upper endoscopy, laparoscopic sleeve gastrectomy and gastropexy DISCHARGE SUMMARY: History of Present Illness: The patient is a?54 year-old woman with a BMI of?33.9 kg/m2 and associated co- morbidities as described above. The patient had extensive work-up, lost 38.6 lbs preoperatively and was electively scheduled for laparoscopic, possible open sleeve gastrectomy and gastropexy. Risks and complications of the surgery were discussed with the patient in advance, particularly the possibility of , pulmonary embolism, anastomotic leak, bleeding, bowel injury, GERD, cardiac, renal or pulmonary complications. The patient understood all the risks and was in agreement with the surgical plan. Hospital Course: The patient underwent an uneventful laparoscopic sleeve gastrectomy with gastropexy on the day of admission. Postoperatively, the patient was transferred to the surgical floor. The patient received IV acetaminophen and IV Dilaudid for pain control. Patient was started on bariatric phase 1 diet POD #0. On postop erative day one, the patient was feeling well without nausea, vomiting, fevers, or tachycardia. The patient had some mild incisional pain and the abdomen was soft.? ? On the morning of postoperative day one, the patient was continued on 1 ounce of water or ice every half hour. During the day, the patient did fairly well, having some incisional pain, but able to ambulate adequately and to tolerate liquids well. Since the patient is doing well, we decided that the patient was ready to be discharged. The patient was given instructions to follow-up in office next week and to call the office for any fever over 101, persistent abdominal pain, nausea, vomiting, GERD, symptoms of DVT such as calf tenderness, or leg swelling, or pulmonary embolism such as chest pain or shortness of breath.? The patient was also instructed to drink 40-60 ounces of liquids per day using the 1-ounce cups. The patient had been given prescriptions for Tylenol for pain, Zofran prn for nausea, and pantoprazole and carafate previously. The patient was encouraged to ambulate and use the incentive spirometer. The patient was allowed to shower, but no baths, and encouraged to stay active at home. All of these instructions were given to the patient personally. All questions were answered and the patient understood all instructions, the instructions were also given to the patient in print. Time Attestation Discharge Coordination Time (in mins): 30 Quality: Safe Use of Opioids Does Pt have an Active Cancer Diagnosis on the Problem List?: No Quality: Stroke Does the patient have a stroke diagnosis?: No Physical Exam Vital Signs: Vital Signs: Last Vital Signs Temp 98.2 F 12/18/24 12:00 Pulse 73 12/18/24 12:00 Resp 18 12/18/24 12:00 BP 134/67 12/18/24 12:00 Pulse Ox 96 12/18/24 12:00 O2 Del Method Room Air 12/18/24 12:00 BMI result Body Mass Index 33.9 DS: Data Data Completed and Pending Pending studies at discharge: Pending at discharge 12/18/24 14:16 Surgical [PTH] Routine Discharge Plan Discharge Anticipated Discharge Date/Time: 12/19/24 10:00 Patient Disposition: Home, Self-Care Discharge Diagnosis: s/p laparoscopic sleeve gastrectomy with gastropexy Referrals: aMndy Trinh PA-C [Primary Care Provider, Internal Medicine] - 1 Week Discharge Medications: Continued bupropion HCl 100 mg tablet 100 mg PO BID Qty: 60 1RF sucralfate 100 mg/mL suspension 10 ml PO BID Qty: 600 2RF pantoprazole 40 mg tablet,delayed release (DR/EC) 40 mg PO DAILY Qty: 90 0RF ondansetron 4 mg tablet,disintegrating 4 mg PO Q12H Qty: 20 0RF Rx Instructions: Only take one every 12 hours as needed if you have nausea Discontinued cholecalciferol (vitamin D3) 125 mcg (5,000 unit) capsule 125 mcg PO DAILY Qty: 90 0RF Discharge Orders: Discharge Order (Routine); Ordered 12/19/24 Ordered By: Shayne Aquion Activity on Discharge: No heavy lifting Stand Alone Forms: Patient Portal Discharge page Print Language: New Zealander Care Plan Goals: weight loss Health Concerns: obesity Plan of Treatment: No tub baths, sex or returning to work until discussed at first post op appointment. No alcohol, tobacco or illegal drug use. Continue to use incentive spirometer hourly while awake. Walk in home for 5- 10 minutes every 2 hours during the first week. Wear abdominal binder with activity. Follow all meal plan instructions from your bariatric surgeon. Review bariatric handbook and call with any questions. Discharge Instructions 1. Please call your doctor or come back to the emergency room should any new symptoms arise. 2. Activity: abstain from alcohol,? limited stair climbing, no bending, no driving, no exercise, no illicit substances, no lifting, no sex, no tub bath, no work. 4. Diet: follow your bariatric surgeon's recommendations for advancing diet. 5. Dressing Change/Wound Care: Your incisions are covered with waterproof dressings. You can shower with these and pat dry. Do not rub over dressings or incisions. If the area is tender, you may apply an ice pack for short intervals (no more than 20 minutes on, followed by at least 20 minutes off). Do not apply heat. Do not use creams, lotions, or topical antibiotics unless instructed to do so by your surgeon. 6. Call your doctor if: - Your temperature exceeds 101.5 F - You experience excessive pain or swelling - You have an unexpected reaction to medication - You have excessive bleeding - You experience continued vomiting/nausea - Your incision begins to separate - Your incision shows signs of infection such as increased redness, swelling, excessive pain, heat, or drainage (light blood or clear fluid is normal) General instructions: No lifting greater than 10 lbs for the next 6 weeks. No driving within 24 hours of taking narcotic pain medications. If you do not move your bowels in the next 2 days, please take milk of magnesia over the counter. Please follow the post op diet and do not advance your diet until instructed by your surgeon or until you are seen in the office in about 1 week. Please walk around your home every hour or two to prevent blood clots from forming in your legs. You do not need to wake from sleeping to walk. Please sleep in a bed or couch to prevent kinking at the hips and knees. Please take your incentive spirometer (your lung rehabilitation aide/scheduler) home with you and use it for the next few days to prevent pneumonias. You may shower; no hot tubs, baths or swimming pools. Please make sure you are consuming 40-60 ounces of total fluids per day. Avoid all carbonation. Please call the office with any questions or concerns such as increasing abdominal pain, fever, chills, shortness of breath, chest pain, leg pain or swelling, or redness or drainage from your incisions. Do not hesitate to contact the office with any questions at . The patient's medical history has been reviewed and they are considered low risk for post op DVT and therefore DVT prophylaxis is not considered necessary. Travel after surgery was reviewed. The patient has not disclosed any travel plans during the first 30 days after surgery and they have been advised that within the first 30 days after surgery any bus, plane, train or car travel over 2 hours in duration is contraindicated due to the possibility of developing blood clots from immobility. Any travel, needs to include periods of ambulation of 10 minutes in duration every 2 hours.? The patient was instructed to discuss any plans for travel during this period with their bariatric surgeon. Assessment: s/p laparoscopic sleeve gastrectomy with gastropexy Discharge Date/Time: 12/19/24 09:01
[2024-12-18 15:53] LABS: Hematocrit 41.6 % (37.0-47.0); Hemoglobin 13.7 g/dl (12.0-16.0)
[2024-12-18 16:03] LABS: Anion Gap 15 (12-20); Blood Urea Nitrogen 12 mg/dL (9-16); Calcium 9.0 mg/dL (8.4-10.2); Carbon Dioxide 24 mmol/L (22-29); Chloride 106 mmol/L (96-108); Creatinine Clr Calc Pharmacy 72.3; Estimated Glomerular Filt Rate > 60; Potassium 3.8 mmol/L (3.3-5.1); Sodium 141 mmol/L (135-145)
[2024-12-18] MEDS: 0.9 % Sodium Chloride Flush 3 ML SYRINGE IVFLUSH (20:53)
--- NOTE | 2024-12-18 21:26 | P.BOP_ITS ---
Brief Operative Note Date of Service: 12/18/24 Pre-op diagnosis: Severe obesity with comorbidities (see below) Procedure: INITIAL PATIENT BMI ON PRESENTATION AT OUR OFFICE: 41.2 kg/m2 LAST BMI BEFORE SURGERY: 37.1 kg/m2 COMORBIDITIES: Sleep apnea, depression, anxiety, DJD, liver steatosis, GERD ?The patient presented to the Weight Management Program with significant obesity that was negatively impacting the patient's comorbidities as listed above.? The program is a phased program with a special focus on preoperative medical weight management to promote substantial weight loss and prepare the patients for the second phase of the program: bariatric surgery. The patient participated in an intensive weekly lifestyle ?intervention and exercise program during which the patient ?has lost between the initial office visit and the last preoperative visit 30.6 lbs, or 14.04% of initial actual body weight. It was deemed appropriate for the patient to now have bariatric surgery. In light of the current Covid-19 pandemic and the well documented strong association of obesity and increased risk of worse outcomes if infected with Covid-19 (REFERENCES: https://pubmed.ncbi.nlm.nih.gov/37601703/ ,? https://pubmed.ncbi.nlm.nih.gov/32 531250/ ), any delay in undergoing bariatric surgery may lead to the patient's worsening health condition and increased?risk of more severe Covid-19 disease if infected. In addition a recent?study from [facility] published in [facility] on 04/27/2021 ([email or web address]) found that, among patients with obesity, substantial weight loss achieved with surgery was associated with improved outcomes of COVID-19 infection. The findings suggest that obesity can be a modifiable risk factor for the severity of COVID-19 infection. In addition, the patient met the BMI-criteria for bariatric surgery based on the BMI on initial presentation. The patient should not be penalized for achieving such weight loss because ?it is not sustainable long-term without surgical intervention and it was achieved in preparation for bariatric surgery ?under my direction and based on my published research ([email or web address]).[email or web address] and? https://www.soard.org/article/[email or web address](06)67566-X/pdf ) ?that a 10% preoperative weight loss improves long-term weight loss after surgery and reduces perioperative complications.? Insurance carriers such as [facility] have endorsed my recommendations ?and have included in their policies criteria to include a 10% preoperative weight loss requirement. PROCEDURE: Esophago-gastroscopy, laparoscopic sleeve gastrectomy and laparoscopic gastropexy INDICATIONS: This is a 38 year-old female who was electively scheduled for laparoscopic, possibly open sleeve gastrectomy. The risks and complications of the procedure were discussed with the patient in advance, particularly the possibility of ; pulmonary embolism; staple line leak; bleeding; GERD; cardiac, pulmonary, or renal complications; as well as long-term problems such as insufficient weight loss, vitamin deficiency, strictures, or ulcers. The patient understood all the risks, and was in agreement to proceed with surgery. DESCRIPTION OF PROCEDURE: After informed consent was obtained from the patient, the patient was given preoperative antibiotics, and was transferred to the operating room. After successful induction of general anesthesia, pneumatic compression devices were placed on both lower extremities. An upper endoscopy was performed next. The oropharynx and esophagus appeared to be within normal limits. There was no diaphragmatic hernia present. The stomach was entered. Then after all fluid and air were suctioned and the stomach was fully decompressed, the scope was withdrawn and secured in the mid esophagus. The patient was then prepped and draped in the usual sterile manner, and abdominal access was established at the right upper quadrant with the Margie technique. A 12 mm blunt port was inserted, and the abdomen was insufflated with CO2 to a pressure of 15 mmHg. Under direct visualization, additional ports were placed, specifically two 5 mm Versi-step ports to the left upper quadrant, and a 5 mm Versi-Step port to the right upper quadrant. 1% lidocaine plain was used to infiltrate all port sites as well as all fascia defects. Following that, the patient was placed in a steep reverse Trendelenburg position. An additional 5 mm port was placed to the right flank for the Mediflex retractor that was used to retract the left lobe of the liver. The gastro-esophageal fat pad was opened with the ultrasonic device (Thpradiperbeat, Olympus) and the anterior esophagus and hiatus were exposed. The angle of His was opened with the ultrasonic device the fundus of the stomach from any diaphragmatic and splenic attachments. I then opened the gastrocolic ligament between the transverse colon and the greater curvature of the stomach with the ultrasonic device to enter the lesser sac and facilitate the ligation of the short gastric vessels. I started at a mid-point along the greater curvature and using the Thunderbeat, all short gas tric vessels were divided all the way to the angle of His until the left jose was completely dissected at its entirety. I then divided the gastro-colic ligament distally to a distance of about 3-4 cm proximal to the pylorus. The stomach was then divided transversely with two Endo KARINA-45 purple and three KARINA-60 articulating purple loads using the AppHero stapler and loads. Every effort was made that the gastric sleeve had a tubular shape and an even caliber throughout. Once the sleeve resection was completed, the staple line of the gastric sleeve was reinforced with Hemoclips. The resected stomach was retrieved without difficulty from the Margie port. A gastropexy was then performed in order to prevent postoperative GERD and partial gastric volvulus. Several interrupted 2.0 Surgidac sutures were placed between the sleeve's staple line and the previously divided greater omentum and gastro-colic ligament using the Endo-Stitch device. ?An upper endoscopy was performed. There was no narrowing at the GE junction. The scope was easily advanced all the way to the pylorus which was clearly visualized. There was no narrowing anywhere and the sleeve's caliber was even throughout. The sleeve's staple line was inspected and there was no evidence of ischemia, bleeding or dehiscence. At that point the gastroscope was withdrawn from the patient?s mouth while we were decompressing the bowel and the stomach from any remaining air. I looked into the lesser sac to see how the sleeve was situating and it was situating well. There was no bleeding from the staple line, spleen, or short gastric vessels. The Mediflex retractor was removed, and the undersurface of the liver was inspected and there was no bleeding. The patient was placed in supine position. I closed the fascial defect of the 12 mm port site with a figure of eight #1 Polysorb suture. Then 30cc Ropivacaine plain with 10 mg of Dexamethasone were used to infiltrate the fascial closure as well as all skin incisions. At this p oint, the abdomen was deflated, all ports were removed under direct vision, and no bleeding was noted from any of the port sites. The skin incisions were irrigated with saline and were closed with 4-0 absorbable monofilament sutures. Steri-Strips and OpSites were used to cover all incisions. The patient was extubated and was transferred in stable condition to the recovery room for further care. I was present and performed all bojorquez parts of the procedure. Ms. Calhounpriti was the assistant farm operations manager. There were no residents to assist with this case. Pee Aquino MD, PhD, FACS Surgeon: Shayne Aquino MD Anesthesia: local and other (TAP block) Was an Concrete Stone Finishing Supervisor used for this Procedure?: Yes Concrete Stone Finishing Supervisor: Judy Fuentes Estimated blood loss (mL): 0 IV fluids (mL): 2,000 Urine output (mL): 0 (No Mejia to record output) Pathology: other (1) Stomach, 2) Gastro-esophageal fat pad) Condition: stable Disposition: PACU
--- NOTE | 2024-12-18 21:38 | P.PNGS_ITS ---
Subjective Subjective Date of Service: 12/19/24 Interval history: Feels well. Mild incisional pain. She is tolerating phase 1 bariatric diet Physical Exam 2 Vital Signs: Vital Signs: Last Vital Signs Temp 97.3 F 12/18/24 19:07 Pulse 72 12/18/24 19:07 Resp 20 12/18/24 19:07 BP 119/58 L 12/18/24 19:07 Pulse Ox 93 12/18/24 19:07 O2 Del Method Room Air 12/18/24 19:07 O2 Flow Rate 2 12/18/24 16:27 BMI result Body Mass Index 33.9 GI: Inspection: Yes normal to inspection and Yes incision (clean, dry and intact) Palpation (GI): Soft to palpation Extrem: Right lower extremity: normal to inspection (no calf tenderness) L eft lower extremity: normal to inspection (no calf tenderness) Objective Data Active Medications Bupropion HCl (Bupropion Hcl 100 Mg Tablet) 100 mg PO BID [facility] Last Admin: 12/18/24 20:53 Dose: Not Given Documented By: MARKO Non-Admin Reason: Patient Refused Famotidine (Famotidine/Pf 20 Mg/2 Ml Vial) 20 mg IVPUSH BID [facility] Last Admin: 12/18/24 20:53 Dose: 20 mg Documented By: MARKO Hydromorphone HCl (Hydromorphone Hcl 0.5 Mg/0.5 Ml Syringe) 0.25 mg IVPUSH Q4H PRN; Protocol PRN Reason: Pain, Severe (Pain Scale 7-10) Lactated Ringer's (Lr) 1,000 mls @ 100 mls/hr IVCONT .Q10H [facility] Last Admin: 12/18/24 16:40 Dose: 100 mls/hr Documented By: ELDON Acetaminophen (Ofirmev) 1,000 mg in 100 mls @ 16.7 mls/hr IV .Q6H [facility] Last Admin: 12/18/24 20:52 Dose: 16.7 mls/hr Documented By: MARKO Metoclopramide HCl (Metoclopramide Hcl 10 Mg/2 Ml Vial) 10 mg IVPUSH Q6H PRN PRN Reason: Nausea Ondansetron HCl (Ondansetron Hcl 4 Mg/2 Ml Vial) 4 mg IVPUSH Q8H PRN PRN Reason: Nausea Sodium Chloride (0.9 % Sodium Chloride Flush 3 Ml Syringe) 3 ml IVFLUSH QSHIFT KORI Last Admin: 12/18/24 20:53 Dose: 3 ml Documented By: MARKO Labs 12/19/24 05:46 12/19/24 05:46 Labs: Laboratory Results - last 24 hr 12/18/24 15:45 Anion Gap 15 Estim Creat Clear Calc 72.3 Estimated GFR > 60 Random Glucose 129 H Calcium 9.0 Procedures Date of Service Date of Service: 12/19/24 Progress Note: A&P Assessment and plan (1) Obesity: Status: Acute Assessment and Plan: s/p laparoscopic sleeve gastrectomy and gastropexy Doing well Will check am labs and if OK the patient will be discharged home (2) BMI 37.0-37.9, adult: Status: Acute (3) Depression: Status: Acute (4) Steatosis, liver: Status: Acute (5) GERD (gastroesophageal reflux disease): Status: Acute (6) Sleep apnea: Status: Acute (7) Osteoarthritis: Status: Acute Time Spent With Patient Time: Total time managing care of this patient today ____ minutes. Quality Stroke Does the patient have a stroke diagnosis?: No VTE Prior VTE?: No VTE Risk Level:: Surgical - moderate VTE Device Contraindication: N/A - Device Ordered VTE Drug Contraindication: N/A - Med Ordered
[2024-12-19] MEDS: Lactated Ringers 1,000 ML 100 ML IVCONT (02:54)
[2024-12-19 03:39] VITALS: BP 158/80; PULSE 53; RESP 18; TEMP 36.1; O2SAT 97
[2024-12-19 06:38] LABS: MANUAL DIFF FLAG NO
[2024-12-19 06:47] LABS: Hematocrit 40.4 % (37.0-47.0); Hemoglobin 13.8 g/dl (12.0-16.0); Imm Gran Abs Auto 0.03 X10*3/uL (0.00-0.03); Imm Gran Pct Auto 0.4 % (0.0-0.4); Lymphocytes Absolute Auto 0.7 X10*3/uL (1.2-4.9); Mean Corpuscular HGB Conc 34.2 g/dl (31.0-35.0); Mean Corpuscular Hemoglobin 29.0 pg (27.0-33.0); Mean Corpuscular Volume 84.9 fL (80.0-98.0); NRBC Abs Auto 0.000 X10*3/uL (0.0-0.012); NRBC Pct Auto 0.0 /100WBC (0.0-0.2); Platelet Count 191 X10*3/uL (160-400); Red Blood Count 4.76 X10*6/uL (4.20-5.50); White Blood Count 7.9 X10*3/uL (4.8-10.8)
[2024-12-19 06:57] LABS: Anion Gap 15 (12-20); Blood Urea Nitrogen 11 mg/dL (9-16); Calcium 8.6 mg/dL (8.4-10.2); Carbon Dioxide 24 mmol/L (22-29); Chloride 104 mmol/L (96-108); Creatinine Clr Calc Pharmacy 88.0; Estimated Glomerular Filt Rate > 60; Potassium 4.4 mmol/L (3.3-5.1); Sodium 139 mmol/L (135-145)
[2024-12-19 07:17] VITALS: BP 147/70; PULSE 50; RESP 16; TEMP 36.6; O2SAT 96
[2024-12-19] MEDS: 0.9 % Sodium Chloride Flush 3 ML SYRINGE IVFLUSH (07:48)
--- NOTE | 2024-12-19 08:57 | HO.POSTANES ---
Post Anesthesia Evaluation Post Anesthesia Evaluation Date of Service: 12/19/24 Vital Signs: Vital Signs Temp Pulse Resp BP Pulse Ox O2 Del Method 12/19/24 07:17 97.9 F 50 16 147/70 H 96 Room Air 12/19/24 03:39 96.9 F 53 18 158/80 H 97 Room Air 12/18/24 23:26 96.8 F 56 16 151/75 H 95 Room Air Anesthesia: General Mental Status: Awake Pain Control: Satisfactory Nausea/Vomiting: None Hydration: Adequate Anesthesia-Related Issues: No Anes. Related Issues
== END 2024-12-19 09:01 | disposition home or self-care (01) | DRG 403 ==
LOC: HO.SSSA 14:47 → HO.S3 15:09
PROVIDERS: Physician Assistant Surgical; Admitting Provider Surgery; Visit Provider Surgery
PROC: 0DB64Z3 Excision of Stomach, Percutaneous Endoscopic Approach, Vertical (ICD-10-PCS; CPT 43845; principal; 2024-12-18 13:10)
DX: E66.01 Morbid (severe) obesity due to excess calories (principal); K76.0 Fatty (change of) liver, not elsewhere classified; F32.A Depression, unspecified; G47.33 Obstructive sleep apnea (adult) (pediatric); F41.9 Anxiety disorder, unspecified; K50.90 Crohn's disease, unspecified, without complications; M19.90 Unspecified osteoarthritis, unspecified site; K21.9 Gastro-esophageal reflux disease without esophagitis; Z68.37 Body mass index [BMI] 37.0-37.9, adult; Z87.891 Personal history of nicotine dependence; Z79.899 Other long term (current) drug therapy
CPT/HCPCS: 36415; 80048; 85014; 85018; 85025; 86850; 86900; 86901; 88304; 88305; 88307; 88342; A4649; C9145; J0131; J0461; J0690; J1100; J1308; J2003; J2250; J2405; J2704; J2795; J3010; J7120

== ENCOUNTER → 2024-12-18 11:25 | Outpatient (BNV) | payer OTHER, SELFPAY | PROVIDERS: Admitting Provider Surgery; Visit Provider Surgery | DX: E66.812 Obesity, class 2 (principal); E66.01 Morbid (severe) obesity due to excess calories; Z68.37 Body mass index [BMI] 37.0-37.9, adult; F32.A Depression, unspecified; K76.0 Fatty (change of) liver, not elsewhere classified; K21.9 Gastro-esophageal reflux disease without esophagitis; G47.30 Sleep apnea, unspecified; M19.90 Unspecified osteoarthritis, unspecified site | CPT/HCPCS: 43659; 43775; 99024; 99499 ==

== ENCOUNTER 2024-12-26 13:04 | Outpatient (AMB) | payer OTHER, SELFPAY ==
--- NOTE | 2024-12-26 12:35 | A.OFFWM_ITS ---
Intake Intake Visit Reasons: TV PO LSG 12/18/24 Allergies acetaminophen (Percocet) Adverse Reaction (Intermediate, Verified 12/18/24 11:32) nausea and vomiting oxycodone (Percocet) Adverse Reaction (Intermediate, Verified 12/18/24 11:32) nausea and vomiting PFSH Medical History (Updated 12/20/24 @ 00:02 by Antonia Liz) Sleep apnea Obesity Morbid obesity Crohn's colitis Osteoarthritis Surgical History History of esophagogastroduodenoscopy (EGD) History of colonoscopy Hx of ventral hernia repair History of tubal ligation Family History Father Hx of Parkinson's disease Family history of high blood pressure Mother Hx of chronic arthritis Hx of kidney disease Social History Household Members: Significant Other Housing: House Are you a primary healthcare administration internship to a significant other at home: No Do you presently have visiting nurse or other home services: No Alcohol intake: never Patient Tobacco Use Status: Former Tobacco user Tobacco use type: Cigarette Years Smoked: 18 e-Cigarette/Vaping Use: Never Used Second Hand Smoke Exposure: No service: No Current occupational status: employed 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 She denies any pain or difficulties with recovery and reports good tolerance of the liquid diet. Her mood is stable and within normal limits. She identifies her children, boyfriend, and mother as sources of support. She reports no hunger but does note some food-related thoughts. Objective: The patient presents for a behavioral health post-operative follow-up visit. A guided emotional check-in was conducted to assess her current functioning, recovery, mood, and emotional state. Psychoeducation was provided on the emotional and psychological adjustments commonly experienced after bariatric surgery. We also focused on distinguishing between hunger and cravings or food thoughts, exploring possible reasons for these experiences, and strategies to work on her mindset. Emphasis was placed on becoming mindful of her physical and mental needs during these times while staying on track. The importance of adhering to the Weight Management Program (WMP) providers' instructions was emphasized, including the pace of drinking and following the meal and exercise plan. Tips and recommendations for long-term success were also discussed. Program resources were provided, and the patient was invited to join our Facebook group to stay informed about ongoing events and activities. Assessment/Response: * Mental status: WNL * Risk reported/identified: None Food/Weight/Diet Expectations of change PT started the program at 218Lbs and recorded 200Lbs as the most recent weight on 11/14/2024. The initial goal is to lose 10% of her weight before surgery, which is about 22lbs. Ultimate weight goal: 196lbs before surgery. Weight on surgery day: 178Lbs PO weight 12/25/2024: 173Lbs. PT is implementing the following: Current meal plan: 3 shakes (2 scoops each) and liquids. Exercise plan: Cleared yesterday, for the week - treadmill only. scale: yes communication with/ provider: Tuesdays. Assessment & Plan Assessment & Plan (1) Adjustment disorder: Code(s): F43.20 - Adjustment disorder, unspecified Qualifiers: Adjustment disorder type: with mixed anxiety and depressed mood Qualified Code(s): F43.23 - Adjustment disorder with mixed anxiety and depressed mood Plan No safety concerns or issues were identified that would require ongoing behavioral health monitoring. The patient has declined additional visits at this time but is aware of the available behavioral health resources should support be needed in the future. Telehealth Telehealth Telehealth Platform: [address] Location of provider rendering services: other (Home office. [place], [place]) Location of patient: address on file Patient Identification confirmed using: Name, : Yes Telehealth method: voice only Patient verbally consented to treatment: Yes Patient verbally consented to billing insurance company: Yes Patient informed of any privacy concerns related to visit: Yes Minutes spent on Phone/Video with Pt.: 25 Coding Level of Care Code Established Pt Tele Psytx 30 mins ([id number]) Patient Type Established Diagnoses Adjustment disorder with mixed anxiety and depressed mood F43.23 Adjustment disorder type: with mixed anxiety and depressed mood Time Spent (min) 25
--- OUTSIDE RECORDS SUMMARY | 2024-12-26 13:35 | XMS_ITS | Patient Health Record ---
Author Organization [facility] Address [address] [place] [address] Care Team Providers Care Endoscopy Registered Nurse Name Role Phone Mandy Morgan Primary Care Provider UnaMitchel Welch Unavailable [phone] Reason For Referral No Information Encounters Encounter Location Date Provider Diagnosis [facility] [address] [place] [address] 09/04/2024 Mitchel Campos Plan Of Treatment No Information Insurance Providers Payer Name Payer Address Payer Phone Subscriber Number Group Number Insured Name Patient Relationship to Insured Coverage Start Date Coverage End Date [facility] [address] [address] [place], [place] [id number] ED VIDAL Self - patient is the insured
== END 2024-12-26 13:09 | disposition home or self-care (01) ==
LOC: HO.HBST 13:04
PROVIDERS: Visit Provider Counselor Mental Health
DX: F43.23 Adjustment disorder with mixed anxiety and depressed mood (principal)
CPT/HCPCS: 90832

== ENCOUNTER 2024-12-27 15:15 | Outpatient (AMB) | payer OTHER, SELFPAY ==
--- NOTE | 2024-12-27 15:13 | MHC.OFFVISWM ---
VS Expanded 12/27/24 15:38 BP 136/80 Blood Pressure Location Rt brachial Blood Pressure Position Sitting Pulse 78 Pulse Source Pulse Oximeter Temp 98 F Temperature Source Temporal Artery Scan Pulse Oximetry 97 Oxygen Delivery Method Room Air Height 5 ft 1 in Weight 171 lb BMI 32.3 Body Fat % 36.9 Body Fat Mass 63.0 Fat Free Mass 107.8 Visceral Fat Rating 10.0 Body Water % 44.8 Body Water Mass 76.6 Muscle Mass/Score 102.2 Basal Metabolic Rate/Score 1,468 Intake Visit Reasons: (OV) PO LSG 12/18/24 Allergies acetaminophen (Percocet) Adverse Reaction (Intermediate, Verified 12/27/24 15:31) nausea and vomiting oxycodone (Percocet) Adverse Reaction (Intermediate, Verified 12/27/24 15:31) nausea and vomiting HPI Comments Details: Patient is a 54-year-old female who returns to the office today in follow-up. She is 9 days post sleeve gastrectomy performed on 12/18/2024. Tolerating 3 celebrate rebuild shakes with 2 scoops each at10-12, 2-4, 6-8. A proximally 40 oz to 45 oz of fluids per day. She has moved her bowels. Denies any pain. [facility] Medical History (Updated 12/27/24 @ 00:02 by Antonia Liz) BMI 37.0-37.9, adult Abdominal wall bulge Sleep apnea Obesity Morbid obesity Crohn's colitis Osteoarthritis Surgical History (Updated 12/27/24 @ 15:51 by COOPER Jiménez) S/P gastric sleeve procedure History of esophagogastroduodenoscopy (EGD) History of colonoscopy Hx of ventral hernia repair History of tubal ligation Family History Father Hx of Parkinson's disease Family history of high blood pressure Mother Hx of chronic arthritis Hx of kidney disease Social History Household Members: Significant Other Housing: House Are you a primary social worker palliative care to a significant other at home: No Do you presently have visiting nurse or other home services: No Alcohol intake: never Patient Tobacco Use Status: Former Tobacco user Tobacco use type: Cigarette Years Smoked: 18 e-Cigarette/Vaping Use: Never Used Second Hand Smoke Exposure: No service: No Current occupational status: employed 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 Original weight on 10/22/2024 was 218 pounds and op weight was 186.5 pounds. Be sure to text Dr Aquino exactly 1 week after surgery your weight from your home scale so he can adjust your meal plan. Continue meal plan until f/u w Judy in 2 weeks May shower, no submersion in bath for another week Continue abdominal binder with activity and exercise for the next 2 weeks. Exercise prior to surgery was treadmill and may resume No abdominal exercises for 6 weeks post operatively Will be emailed link to post op video for review Reminded of the pace of drinking, 2 mL per minute, 1 oz/15 min.
[2024-12-27 15:38] VITALS: BP 136/80; PULSE 78; TEMP 36.6; O2SAT 97; BMI 32.3
--- OUTSIDE RECORDS SUMMARY | 2024-12-27 15:51 | XMS_ITS | Patient Health Record ---
Author Organization [facility] Address [address] [place] [address] Care Team Providers Care Tour Actor Name Role Phone Mandy Morgan Primary Care Provider UnaMitchel Welch Unavailable [phone] Reason For Referral No Information Encounters Encounter Location Date Provider Diagnosis [facility] [address] [place] [address] 09/04/2024 Mitchel Campos Plan Of Treatment No Information Insurance Providers Payer Name Payer Address Payer Phone Subscriber Number Group Number Insured Name Patient Relationship to Insured Coverage Start Date Coverage End Date [facility] [address] [address] [place], [place] [id number] ED VIDAL Self - patient is the insured
== END 2024-12-27 16:04 | disposition home or self-care (01) ==
LOC: HO.HBS 15:16
PROVIDERS: Visit Provider Physician Assistant Surgical
DX: Z98.84 Bariatric surgery status (principal)
CPT/HCPCS: 99024

== ENCOUNTER → 2024-12-27 15:15 | Outpatient (BNVA) | payer OTHER, SELFPAY | PROVIDERS: Visit Provider Physician Assistant Surgical | DX: Z98.84 Bariatric surgery status (principal) | CPT/HCPCS: 99212 ==

== ENCOUNTER 2025-01-25 11:25 | Outpatient (AMB) | payer OTHER, SELFPAY ==
--- NOTE | 2025-01-25 11:09 | MHC.OFFVISWM ---
VS Expanded 01/25/25 11:11 Height 5 ft 1 in Weight 158 lb 2 oz BMI 29.9 Intake Visit Reasons: TV PO LSG 12/18/24 Allergies acetaminophen (Percocet) Adverse Reaction (Intermediate, Verified 12/27/24 15:31) nausea and vomiting oxycodone (Percocet) Adverse Reaction (Intermediate, Verified 12/27/24 15:31) nausea and vomiting Medication List - Last Reconciled 01/25/25 by COOPER Walter bupropion HCl 100 mg PO BID ondansetron 4 mg PO Q12H pantoprazole 40 mg PO DAILY sucralfate 10 mL PO BID HPI Comments Details: This?is a?54?yo F who is s/p LSG 12/18/2024. Presents for 5w post op visit. Weight at last visit on 12/18/2024 was 171 pounds. Weight today is 158.2 pounds, representing a 12.8 pound weight loss with a BMI today of 29.9.? No complaints of nausea, emesis, abdominal pain or reflux, or constipation. 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 mother 30-45min treadmill per day, tries to do 10min pedal bike when she is at her mom's, tries to climb stairs PFSH Medical History (Updated 01/25/25 @ 11:23 by COOPER Walter) BMI 37.0-37.9, adult Abdominal wall bulge Sleep apnea Obesity Morbid obesity Crohn's colitis Osteoarthritis Surgical History (Updated 12/27/24 @ 15:51 by COOPER Jiménez) S/P gastric sleeve procedure History of esophagogastroduodenoscopy (EGD) History of colonoscopy Hx of ventral hernia repair History of tubal ligation Family History Father Hx of Parkinson's disease Family history of high blood pressure Mother Hx of chronic arthritis Hx of kidney disease Social History Household Members: Significant Other Housing: House Are you a primary child care counselor to a significant other at home: No Do you presently have visiting nurse or other home services: No Alcohol intake: never Patient Tobacco Use Status: Former Tobacco user Tobacco use type: Cigarette Years Smoked: 18 e-Cigarette/Vaping Use: Never Used Second Hand Smoke Exposure: No service: No Current occupational status: employed 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 Cognitive needs: No Hearing needs: No Vision needs: Yes (Reading Glasses) Telehealth Telehealth Telehealth Platform: Telephone Location of provider rendering services: other Location of patient: address on file Patient Identification confirmed using: Name, : Yes Telehealth method: voice only Patient verbally consented to treatment: Yes Patient verbally consented to billing insurance company: Yes Patient informed of any privacy concerns related to visit: Yes Minutes spent on Phone/Video with Pt.: 15 Assessment & Plan Assessment & Plan (1) S/P laparoscopic sleeve gastrectomy: Code(s): Z98.84 - Bariatric surgery status Category: Medical (2) Overweight: Code(s): E66.3 - Overweight Category: Medical Plan Pt has achieved BMI < 30. Continue meal plan per Dr Mullen Reviewed heavy lifting restriction until 6w postop. Continue PPI/carafate until 3mo postop. RTC 2mo for 15min phone visit.
[2025-01-25 11:11] VITALS: BMI 29.9
--- OUTSIDE RECORDS SUMMARY | 2025-01-25 13:14 | XMS_ITS | Patient Health Record ---
Author Organization [facility] Address [address] [place] [address] Care Team Providers Care Head Cd Reactor Operator Name Role Phone Mandy Morgan Primary Care Provider UnaMitchel Welch Unavailable [phone] Reason For Referral No Information Encounters Encounter Location Date Provider Diagnosis [facility] [address] [place] [address] 09/04/2024 Mitchel Campos Plan Of Treatment No Information Insurance Providers Payer Name Payer Address Payer Phone Subscriber Number Group Number Insured Name Patient Relationship to Insured Coverage Start Date Coverage End Date [facility] [address] [address] [place], [place] [id number] ED VIDAL Self - patient is the insured
== END 2025-01-25 11:44 | disposition home or self-care (01) ==
LOC: HO.HBS 11:25
PROVIDERS: Visit Provider Physician Assistant Surgical
DX: E66.3 Overweight (principal); Z68.29 Body mass index [BMI] 29.0-29.9, adult; Z90.3 Acquired absence of stomach [part of]; Z98.84 Bariatric surgery status
CPT/HCPCS: 99024

== ENCOUNTER 2025-03-07 08:55 | Outpatient (AMB) | payer OTHER, SELFPAY ==
[2025-03-07 09:12] VITALS: BP 118/72; PULSE 75; O2SAT 97; BMI 27.4
--- NOTE | 2025-03-07 09:12 | A.OFFPC_ITS ---
Vital Signs 03/07/25 09:12 Height 5 ft 1 in Weight 145 lb BMI 27.4 BP 118/72 Blood Pressure Location Rt brachial Position Sitting Pulse 75 Pulse Source Pulse Oximeter Pulse Oximetry (%) 97 Oxygen Delivery Method Room Air Intake Visit Reasons: Annual Exam Allergies acetaminophen (Percocet) Adverse Reaction (Intermediate, Verified 03/07/25 09:32) nausea and vomiting oxycodone (Percocet) Adverse Reaction (Intermediate, Verified 03/07/25 09:32) nausea and vomiting Medication List - Last Reconciled 03/07/25 by Mandy Trinh PA-C bupropion HCl 100 mg PO BID Tobacco use date assessed: 12/05/24 Dental Screening Dental Screen Date: 12/05/24 HPI Annual Exam HPI Details 54-year-old female with past medical his tory of Crohn's colitis, ventral hernia, morbid obesity, hypercholesterolemia, vitamin-D deficiency and adjustment disorder last seen 11/2024 coming in for annual exam. In review of the notes, patient was seen 12/2024 s/p LSG 11/2024 continued on PPI and plan to return to clinic in 2 months. Presenting for a follow-up visit approximately three months post-bariatric surgery. The patient underwent bariatric surgery in November and has since lost 76 pounds, from a weight of 221 pounds in August to a current weight of 145 pounds, and reports feeling fantastic. She is taking bupropion twice daily, which she feels is helpful and denies any side effects. Her history of sleep apnea has likely resolved with weight loss, as she denies any related symptoms and is not on CPAP. A pre-existing ventral hernia was evaluated during her surgery and did not require repair, with the surgeon noting everything was well-placed. colonoscopy: r/s with Dr. Lentz mammogram: 09/2024 vaccines: TDap due and given today, decliend flu shot PFSH Medical History BMI 37.0-37.9, adult Abdominal wall bulge Sleep apnea Obesity Morbid obesity Crohn's colitis Osteoarthritis Surgical History S/P gastric sleeve procedure History of esophagogastroduodenoscopy (EGD) History of colonoscopy Hx of ventral hernia repair History of tubal ligation Family History Father Hx of Parkinson's disease Family history of high blood pressure Mother Hx of chronic arthritis Hx of kidney disease Social History Household Members: Significant Other Housing: House Are you a primary care team coordinator scheduler to a significant other at home: No Do you presently have visiting nurse or other home services: No Alcohol intake: never Patient Tobacco Use Status: Former Tobacco user Tobacco use type: Cigarette Years Smoked: 18 e-Cigarette/Vaping Use: Never Used Second Hand Smoke Exposure: No service: No Current occupational status: employed 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 1. Little interest or pleasure in doing things: not at all 2. Feeling down, depressed, or hopeless: not at all 3. Trouble falling or staying asleep, or sleeping too much: not at all 4. Feeling tired or having little energy: not at all 5. Poor appetite or overeating: not at all 6. Feeling bad about yourself - or that you are a failure or have let yourself or your family down: not at all 7. Trouble concentrating on things, such as reading the newspaper or watching television: not at all 8. Moving or speaking so slowly that other people could have noticed. Or the opposite - being so fidgety or restless that you have been moving around a lot more than usual: not at all 9. Thoughts that you would be better off or of hurting yourself in some way: not at all Total score: 0 Depression Screening Interpretation: Negative (Initial score from New Pt pack was 7 done on 09/27/2024.) Depression Screening Done: Yes 26275 - PHQ-9 Billing: Yes Source: Developed by Drs. Mitchel Maldonado, Lory Martinez, John Collins and colleagues, with an educational ame from [employer]. Thrive Questionnaire Date Thrive assessed: 08/29/24 I am a: Parent/Caregiver What is your living situation today?: I have a steady place to live Within the past 12 months, did the food you bought not last and you didn't have the money to get more?: Never true Within the past 12 months, did you worry whether your food would run out before you got money to buy more?: Never true Do you have trouble paying for medicines?: No Do you have trouble getting transportation to medical appointments?: No Do you have trouble paying your heating and electricity bill?: No Do you have trouble taking care of your child, family member or friend?: No Do you have trouble with day-to-day activities such as bathing, preparing meals, shopping, managing finances, etc.?: No Are you currently unemployed and looking for a job?: No Are you interested in more education?: No Please select the resources that you would like help with: None Currently or been in a relationship where the following occur: No concerns rep orted THRIVE Score: 0 AUDIT C Alcohol Use Questionnaire (AUDIT-C) 1. How often do you have a drink containing alcohol?: Never 3. How often do you have six or more drinks on one occasion?: Never Total Score: 0 SURINDER-7 AMB Questionnaire SURINDER-7 Date SURINDER - 7 assessed: 03/07/25 Feeling nervous, anxious, or on edge: 0 = Not at all Not being able to stop or control worryin = Not at all Worrying too much about different things: 0 = Not at all Trouble relaxin = Not at all Being so restless that it is hard to sit still: 0 = Not at all Becoming easily annoyed or irritable: 0 = Not at all Feeling afraid as if something awful might happen: 0 = Not at all Total SURINDER-7 score (0-4 normal; 5-9 mild; 10-14 moderate; 15-21 severe): 0 Source: Developed by Drs. Mitchel Maldonado, Lory Martinez, John Collins and colleagues, with an educational ame from [employer]. SURINDER-7 Assessment Billing SURINDER-7 Assessment Tool: SURINDER-7 Assessment 26209 Review of Systems Const Denies body aches, Denies fatigue, Denies fever(s), Denies frequent falls, Denies headache(s) and Denies weakness Eyes Reports no additional complaints and Denies change in vision ENT Denies dysphagia, Denies dizziness, Denies facial pain, Denies headache(s), Denies nasal congestion and Denies odynophagia Card Denies chest pain, Denies syncope, Denies irregular heart rhythm, Denies leg edema, Denies lightheadedness and Denies dyspnea Resp Denies cough and Denies dyspnea GI Denies abdominal pain, Reports constipation, Denies dysphagia, Denies dyspepsia, Denies heartburn, Denies diarrhea, Denies nausea, Denies odynophagia and Denies vomiting Denies urinary frequency, Denies dysuria, Denies urinary hesitancy and Denies urinary urgency Musc Denies back pain and Denies myalgias Skin/Breast Reports system reviewed and no additional complaints, except as documented Neuro Denies dizziness, Denies syncope, Denies frequent falls, Denies headache(s) and Denies weakness Psych Reports no additional complaints Endo Denies fatigue Physical exam (Primary Care) Vital Signs: Last Vital Signs Pulse 75 03/07/25 09:12 BP 118/72 03/07/25 09:12 Pulse Ox 97 03/07/25 09:12 Oxygen Delivery Method Room Air 03/07/25 09:12 BMI result Body Mass Index 27.4 Tobacco/Smoking Status: Tobacco use Status Tobacco use date assessed 12/05/24 03/07/25 09:12 Patient Tobacco Use Status Former Tobacco user 03/07/25 09:12 Tobacco use type Cigarette 03/07/25 09:12 e-Cigarette/Vaping Use Never Used 03/07/25 09:12 PHQ-9: PHQ-9 Score PHQ-9: Total score 0 03/07/25 10:03 Depression Screening Interpretation: Negative (Initial score from New Pt pack was 7 done on 09/27/2024.) Thrive Assessment: Date of Thrive Assessment Date Thrive assessed 08/29/24 03/07/25 09:12 Currently or been in a relationship where the following occur: No concerns reported Const General: cooperative, healthy appearing, comfortable and no acute distress Orientation/consciousness: patient oriented x3 HENMT Head: Yes normocephalic Ears: hearing grossly normal bilaterally, external ears normal, TM's normal bilaterally and EAC's normal General nose exam: Normal external nose present Face and sinus: Yes normal facial exam and Yes sinuses nontender Mouth: Normal oral and palatal mucosa present and tongue normal Throat: Yes posterior oropharynx normal Eyes General: appearance normal, both eyes and all related structures Conjunctivae: conjunctivae normal Pupils: Equal, round and reactive pupils present EOM: EOMs intact bilaterally and No Nystagmus present Neck Neck: Yes normal visual inspection, Yes full ROM and Yes no lymphadenopathy Chest Chest palpation & inspection: normal inspection of the chest Resp Effort & Inspection: normal respiratory effort Auscultation: clear to auscultation bilaterally, no crackles, no rales, no rhonchi, no wheezes and breath sounds present Cardio Rate: regular rate Rhythm: regular rhythm Peripheral pulses: radial pulses present and dorsalis pedis present GI Inspection: Yes normal to inspection and No Abdominal wall edema Palpation (GI): Soft to palpation, not firm and nontender Auscultation: normal bowel sounds Rectal Exam - Female: deferred General: Yes no CVA tenderness Back/Spine/Pelvis Back: no CVA tenderness Skin General skin exam: no rashes or lesions noted Neuro General: patient oriented x3 Cranial nerves: Yes Equal, round and reactive pupils present, Yes Midline tongue present, Yes Ability to bilaterally elevate shoulders present and No Nystagmus present Gait exam (Neuro): Normal gait present Extrem General: Yes normal to inspection, Yes full ROM, No no pedal edema and No edema Psych Speech and movement: Normal speech and movement present Affect: normal affect Insight: Good insight present (Psych) Judgement: Good judgement present (Psych) Immunizations Boostrix Tdap 2.5 Lf unit-8 mcg-5 Lf/0.5 mL intramuscular syringe Performing Provider: Mandy Trinh PA-C Performing [facility]: [facility] Administered by: Kanika Ryder CMA on 03/07/25 10:04 Dose Route Admin Location Dispensed Lot Number Expiration Date NDC Registered Vascular Technologist (Rvt) 0.5 mL IM Left Deltoid 0.5 mL [id number] 07/27/27 47905-487-16 [employer] Total Dispensed Waste 0.5 mL 0 % VIS Given Date VIS Provided VIS Publication Date 03/07/25 Single Vaccine 20 Eligibility Eligibility Date Funding Source Not [facility] Eligible 03/07/25 Private Coding Level of Care Code Est Pt Prev Care 40-64y(07607) Diagnoses Annual physical exam Z00.00 Depression F32.A Hypercholesterolemia E78.00 Diabetes mellitus E11.9 S/P laparoscopic sleeve gastrectomy Z98.84 Overweight E66.3 GERD (gastroesophageal reflux disease) K21.9 Steatosis, liver K76.0 Sleep apnea G47.30 Crohn's disease of colon without complication K50.10 Digestive disease complication type: without complication Ventral hernia K43.9 Additional Codes SURINDER-7 Assessment Billing - SURINDER-7 Assessment Tool: SURINDER-7 Assessment 40229 ([id number]) PHQ-9 - 83310 - PHQ-9 Billing: Yes ([id number]) Assessment & Plan Assessment & Plan (1) Annual physical exam: Code(s): Z00.00 - Encounter for general adult medical examination without abnormal findings Category: Medical Plan: Patient is overdue for colonoscopy and encouraged to reach out to Dr. Lentz to have this scheduled. Otherwise she is up-to-date on all recommended routine screenings and vaccinations for her age. Tetanus was due and given in the office today. Healthy diet and regular exercise is encouraged. Plan to follow up in 6 months or sooner as needed (2) Depression: Code(s): F32.A - Depression, unspecified Category: Medical Plan: Patient was started on Wellbutrin 100mg BID at last visit and feels as though this has been helpful for her racing thoughts and anxiety. She is happy on the current dose and denies any side effects at this time. (3) Hypercholesterolemia: Code(s): E78.00 - Pure hypercholesterolemia, unspecified Category: Medical Plan: Avoid foods that are high in cholesterol such as red meat, fried foods, eggs and baked goods. Triglyceride goal of less than 150 and LDL goal of less than 130. (4) Diabetes mellitus: Code(s): E11.9 - Type 2 diabetes mellitus without complications Category: Medical Plan: Decrease the amount of carbohydrates such as pasta, bread, rice, and potatoes and limit the amount of sweets. Although fruits are generally healthy they should be eaten in moderation as they are still high in sugar. A1c on last blood work 5.6% not on medical management. (5) S/P laparoscopic sleeve gastrectomy: Code(s): Z98.84 - Bariatric surgery status Category: Surgical Plan: Patient has been doing well postoperatively and has lost a total of 76 lb. She will continue to follow with weight management clinic at this time and continue on current diet. (6) Overweight: Code(s): E66.3 - Overweight Category: Medical Plan: Healthy diet and regular exercise is encouraged. (7) GERD (gastroesophageal reflux disease): Code(s): K21.9 - Gastro-esophageal reflux disease without esophagitis Category: Medical Plan: Avoid trigger foods such as citrus, tomato products, soda, caffeine, spicy foods and other foods that may be irritating to your stomach. Avoid laying flat 3-4 hours after eating and elevate the head of the bed 30 degrees to prevent acid from moving into the esophagus. No longer on PPI (8) Steatosis, liver: Code(s): K76.0 - Fatty (change of) liver, not elsewhere classified Category: Medical Plan: Healthy diet and regular exercise is encouraged. Continue to monitor LFTs (9) Sleep apnea: Comment: NO CPAP Code(s): G47.30 - Sleep apnea, unspecified Category: Medical Plan: No longer using a CPAP and denying any symptoms at this time. Likely due to the weight loss sleep apnea has significantly reduced. (10) Crohn's colitis: Code(s): K50.10 - Crohn's disease of large intestine without complications Category: Medical Qualifiers: Digestive disease complication type: without complication Qualified Code(s): K50.10 - Crohn's disease of large intestine without complications Plan: Patient has had a colonoscopy [address] Lentz and is due this year. She will r/s with Dr. Lentz as she did miss her last visit. (11) Ventral hernia: Comment: Repair 2019 Code(s): K43.9 - Ventral hernia without obstruction or gangrene Category: Medical Plan: Assessed while in surgery and did not need to be repaired at that time. She will continue to monitor at this time. Plan This note was constructed using voice recognition software. While every effort has been made to ensure accuracy and tank tester, still areas may have been included sometimes these areas may affect the content or meeting of the given symptoms. Total time spent caring for the patient today was 30 minutes. This includes time spent before the visit reviewing the chart, time spent during the visit, and time spent after the visit and documentation. Patient was informed and verbally consented to the use of an ambient scribe for clinic note documentation during this visit. Orders: Orders TDaP Immunization Today Z23 - Encounter for immunization Comprehensive Met. Panel Today K76.0 - Fatty (change of) liver, not elsewhere classified Hemoglobin A1c Today R73.03 - Prediabetes Lipid Panel Today E78.00 - Pure hypercholesterolemia, unspecified Medications: Refilled bupropion HCl 100 mg PO BID 180 tabs 1RF
--- OUTSIDE RECORDS SUMMARY | 2025-03-07 09:37 | XMS_ITS | Patient Health Record ---
Author Organization [facility] Address [address] [place] [address] Care Team Providers Care Movie Producer Name Role Phone Mandy Morgan Primary Care Provider UnaMitchel Welch Unavailable [phone] Reason For Referral No Information Encounters Encounter Location Date Provider Diagnosis [facility] [address] [place] [address] 09/04/2024 Mitchel Campos Plan Of Treatment No Information Insurance Providers Payer Name Payer Address Payer Phone Subscriber Number Group Number Insured Name Patient Relationship to Insured Coverage Start Date Coverage End Date [facility] [address] [address] [place], [place] [id number] ED VIDAL Self - patient is the insured
== END 2025-03-07 10:46 | disposition home or self-care (01) ==
LOC: HO.HMCH 08:56
DX: Z00.00 Encounter for general adult medical examination without abnormal findings (principal); F32.A Depression, unspecified; E11.9 Type 2 diabetes mellitus without complications; K50.10 Crohn's disease of large intestine without complications; E78.00 Pure hypercholesterolemia, unspecified; Z98.84 Bariatric surgery status; E66.3 Overweight; K21.9 Gastro-esophageal reflux disease without esophagitis; K76.0 Fatty (change of) liver, not elsewhere classified; G47.30 Sleep apnea, unspecified; K43.9 Ventral hernia without obstruction or gangrene; Z23 Encounter for immunization

== ENCOUNTER → 2025-03-07 08:55 | Outpatient (BNVA) | payer OTHER, SELFPAY | DX: Z00.00 Encounter for general adult medical examination without abnormal findings (principal); K43.9 Ventral hernia without obstruction or gangrene; F32.A Depression, unspecified; E78.00 Pure hypercholesterolemia, unspecified; E11.9 Type 2 diabetes mellitus without complications; E66.3 Overweight; K21.9 Gastro-esophageal reflux disease without esophagitis; K76.0 Fatty (change of) liver, not elsewhere classified; G47.30 Sleep apnea, unspecified; K50.10 Crohn's disease of large intestine without complications; Z23 Encounter for immunization; Z68.27 Body mass index [BMI] 27.0-27.9, adult; Z98.84 Bariatric surgery status | CPT/HCPCS: 90471; 90715; 96127; 99396 ==

== ENCOUNTER 2025-03-08 11:13 | Outpatient (AMB) | payer OTHER, SELFPAY ==
--- NOTE | 2025-03-08 11:06 | A.OFFVIS_ITS ---
VS Expanded 03/08/25 11:08 Height 5 ft 1 in Weight 143 lb BMI 27.0 Intake Visit Reasons: Phone PO LSG 12/18/24 Allergies acetaminophen (Percocet) Adverse Reaction (Intermediate, Verified 03/07/25 09:32) nausea and vomiting oxycodone (Percocet) Adverse Reaction (Intermediate, Verified 03/07/25 09:32) nausea and vomiting Medication List - Last Reconciled 03/08/25 by COOPER Walter bupropion HCl 100 mg PO BID HPI Comments Details: This?is a?54?yo F who is s/p LSG 12/18/2024. Presents for 3mo post op visit. Weight at last visit on 01/25/2025 was 158.2 pounds. Weight today is 143 pounds, representing a 15.2 pound weight loss with a BMI today of 27.? No complaints of nausea, emesis, abdominal pain or reflux, or constipation. 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-45min treadmill per day, tries to do 10min pedal bike when she is at her mom's, tries to climb stairs has started a strength training journal [facility] Medical History BMI 37.0-37.9, adult Abdominal wall bulge Sleep apnea Obesity Morbid obesity Crohn's colitis Osteoarthritis Surgical History S/P gastric sleeve procedure History of esophagogastroduodenoscopy (EGD) History of colonoscopy Hx of ventral hernia repair History of tubal ligation Family History Father Hx of Parkinson's disease Family history of high blood pressure Mother Hx of chronic arthritis Hx of kidney disease Social History Household Members: Significant Other Housing: House Are you a primary janitor caretaker to a significant other at home: No Do you presently have visiting nurse or other home services: No Alcohol intake: never Patient Tobacco Use Status: Former Tobacco user Tobacco use type: Cigarette Years Smoked: 18 e-Cigarette/Vaping Use: Never Used Second Hand Smoke Exposure: No service: No Current occupational status: employed 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 Cognitive needs: No Hearing needs: No Vision needs: Yes (Reading Glasses) Telehealth Telehealth Telehealth Platform: Telephone Location of provider rendering services: other Location of patient: address on file Patient Identification confirmed using: Name, : Yes Telehealth method: voice only Patient verbally consented to treatment: Yes Patient verbally consented to billing insurance company: Yes Patient informed of any privacy concerns related to visit: Yes Minutes spent on Phone/Video with Pt.: 12 Assessment & Plan Assessment & Plan (1) S/P laparoscopic sleeve gastrectomy: Code(s): Z98.84 - Bariatric surgery status Category: Surgical (2) Overweight: Code(s): E66.3 - Overweight Category: Medical Plan Pt doing well with weight loss, following meal plan per Dr. Mullen Continue exercise regimen. Completed PPI and carafate, no reflux. RTC 3mo for 15min TV.
[2025-03-08 11:08] VITALS: BMI 27.0
--- OUTSIDE RECORDS SUMMARY | 2025-03-08 13:36 | XMS_ITS | Patient Health Record ---
Author Organization [facility] Address [address] [place] [address] Care Team Providers Care Investment Strategist Name Role Phone Mandy Morgan Primary Care Provider UnaMitchel Welch Unavailable [phone] Reason For Referral No Information Encounters Encounter Location Date Provider Diagnosis [facility] [address] [place] [address] 09/04/2024 Mitchel Campos Plan Of Treatment No Information Insurance Providers Payer Name Payer Address Payer Phone Subscriber Number Group Number Insured Name Patient Relationship to Insured Coverage Start Date Coverage End Date [facility] [address] [address] [place], [place] [id number] ED VIDAL Self - patient is the insured
== END 2025-03-08 11:18 | disposition home or self-care (01) ==
LOC: HO.HBS 11:14
PROVIDERS: Visit Provider Physician Assistant Surgical
DX: E66.3 Overweight (principal); Z68.27 Body mass index [BMI] 27.0-27.9, adult; Z90.3 Acquired absence of stomach [part of]; Z98.84 Bariatric surgery status
CPT/HCPCS: 99024